=== PATIENT | female | born 1935 | race Caucasian/White ===

== ENCOUNTER 2020-05-20 10:55 | Outpatient (REF) | payer MEDICARE, SELFPAY ==
[2020-05-20 11:30] LABS: MANUAL DIFF FLAG NO
[2020-05-20 11:38] LABS: Basophils Absolute Auto 0.1 X10*3/uL (0.0-0.2); Basophils Percent Auto 1.4 % (0-2); Eosinophils Absolute Auto 0.6 X10*3/uL (0.0-0.4); Eosinophils Percent Auto 7.5 % (0-4); Hematocrit 41.5 % (37-47); Hemoglobin 13.5 g/dl (12.0-16.0); Imm Gran Abs Auto 0.01 X10*3/uL (0.00-0.03); Imm Gran Pct Auto 0.1 % (0.0-0.4); Mean Corpuscular HGB Conc 32.5 g/dl (31.0-35.0); Mean Corpuscular Hemoglobin 31.8 pg (27.0-33.0); Mean Corpuscular Volume 97.6 fL (80-98); Mean Platelet Volume 9.5 fL (9.4-12.3); Monocytes Absolute Auto 0.7 X10*3/uL (0.1-1.2); Monocytes Percent Auto 7.9 % (2-11); Neutrophils Absolute Auto 5.2 X10*3/uL (2.0-8.3); Neutrophils Percent Auto 60.1 % (45-73); Platelet Count 328 X10*3/uL (160-400); Red Blood Count 4.25 X10*6/uL (4.20-5.50); Red Cell Distribution Width 13.8 % (11.0-16.0); White Blood Count 8.6 X10*3/uL (4.8-10.8)
[2020-05-20 12:19] LABS: Alanine Aminotransferase 33 U/L (0-31); Albumin Level 4.1 g/dL (3.5-5.0); Alkaline Phosphatase 166 U/L (39-117); Anion Gap 15 (12-20); Aspartate Amino Transferase 35 U/L (5-31); Bilirubin Total 0.8 mg/dL (0.0-1.0); Blood Urea Nitrogen 15 mg/dL (9-16); Calcium 9.3 mg/dL (8.4-10.2); Carbon Dioxide 27 mmol/L (22-29); Chloride 106 mmol/L (96-108); Cholesterol 204 mg/dL; Estimated Glomerular Filt Rate > 60; Glucose Fasting 95 mg/dL (60-99); HDL Cholesterol 49 mg/dL; LDL Cholesterol Calculated 130 mg/dl; Potassium 4.9 mmol/l (3.3-5.1); Sodium 143 mmol/L (135-145); Total Protein 7.5 g/dL (6.5-8.0); Triglycerides 125 mg/dL
[2020-05-20 12:43] LABS: TSH reflex Free T4 1.57 mIU/mL (0.32-4.0)
== END 2020-05-20 10:56 | disposition home or self-care (01) ==
LOC: HO.LABR 10:55
PROVIDERS: PCP Internal Medicine; Visit Provider Internal Medicine
DX: I63.542 Cerebral infarction due to unspecified occlusion or stenosis of left cerebellar artery (principal); E66.3 Overweight; E78.00 Pure hypercholesterolemia, unspecified
CPT/HCPCS: 36415; 80053; 80061; 84443; 85025

== ENCOUNTER 2020-05-22 16:04 | Inpatient (IN) | payer MEDICARE, SELFPAY ==
[2020-05-22] VITALS (12 sets, daily range): BP systolic 131–240; BP diastolic 52–94; PULSE 68–93; RESP 16–19; TEMP 36.7; O2SAT 97–100; BMI 29.2
--- NOTE | 2020-05-22 | CT_ITS ---
EXAMINATION: CT HEAD WITHOUT CONTRAST CLINICAL INFORMATION: Altered mental status COMPARISON: 09/06/2016 TECHNIQUE: Contiguous axial imaging was performed from the skull base to vertex without intravenous administration of contrast. This CT examination was performed using dose optimization techniques as appropriate, variously including the following: *Automated exposure control *Adjustment of mA and/or kV according to patient size (this includes techniques or standardized protocols for targeted exams where dose is matched to indication/reason for exam; i.e. extremities or head) *Use of iterative reconstruction technique DLP: 602 mGy-cm FINDINGS: No intra-axial or extra-axial hemorrhage. No acute territorial infarct. 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 Ventricles and sulci appear normal. Preservation of sierra-white matter differentiation. No mass, mass effect, or midline shift. No fracture. The mastoid air cells and visualized paranasal sinuses are clear. IMPRESSION: No acute intracranial pathology.
--- NOTE | 2020-05-22 | ECG_ITS ---
Test Reason : HYPERTENTION Blood Pressure : / mmHG Vent. Rate : 082 BPM Atrial Rate : 082 BPM P-R Int : 124 ms QRS Dur : 088 ms QT Int : 426 ms P-R-T Axes : 066 043 073 degrees QTc Int : 497 ms Normal sinus rhythm Possible Left atrial enlargement Nonspecific ST abnormality Intra-ventricular conduction delay Abnormal ECG When compared with ECG of 06-SEP-2016 19:24, ST more depressed Inferior leads Lateral leads Referred By: Martín Braun Electronically Signed By:CECILE SMITH MD
--- NOTE | 2020-05-22 | XR_ITS ---
EXAMINATION: XR CHEST CLINICAL INFORMATION: Altered mental status COMPARISON: 09/06/2016 TECHNIQUE: Frontal view of the chest was obtained. FINDINGS: No focal consolidation, pulmonary edema, or pleural effusion. Stable cardiomediastinal silhouette. IMPRESSION: Unremarkable examination.
--- NOTE | 2020-05-22 16:23 | ED.AMS ---
HPI - Altered Mental Status General Chief Complaint: Altered Mental Status Stated Complaint: AMS,HYPERTENSION Time Seen by Provider: 05/22/20 16:20 Source: EMS Mode of arrival: EMS History of Present Illness HPI narrative: 84-year-old female brought in by EMS secondary to saying she had a change in mental status. As per EMS patient was fighting with and was not acting right. No known falls or fevers. No other history obtainable at this time secondary to patient's vague historian Onset (ago): day(s) ( 1 day) Related Data Home Medications Medication Instructions Recorded Confirmed atorvastatin 1 tab PO DAILY 05/22/20 05/22/20 metoprolol succinate 1 tab PO DAILY 05/22/20 05/22/20 Allergies Allergy/AdvReac Type Severity Reaction Status Date / Time egg [EGG] Allergy Unknown UNKNOWN Verified 05/22/20 16:39 eggs Allergy Unknown Unknown Uncoded 05/22/20 16:39 STREPTOMYCES ANTIBIOTICUS Allergy Unknown UNKNOWN Uncoded 05/22/20 16:39 DRVD Review of Systems Review of Systems: unable to obtain secondary to vague historian [facility] Past Medical History Medical History CVA (cerebral vascular accident) Hypertension Family History Family History Other Patient denies medical problems Social History Social History Household Members: Spouse Smoking Status: Never smoker Use of substances other than those prescribed or required for medical reasons: No Advance Directives: No Advance Directives Information Provided: Yes Physical Exam Vital Signs and I&O and Narrative: Vital Signs and I&O: Vital Signs Temp 98.1 F 05/22/20 16:19 Pulse 88 05/23/20 01:11 Resp 20 05/23/20 01:11 BP 184/86 H 05/23/20 01:11 Pulse Ox 97 05/23/20 01:11 Intake & Output 05/22/20 05/22/20 05/23/20 06:59 18:59 06:59 Weight 68 kg Body Mass Index 29.2 Const: Other: Appearance: Alert. Oriented to person. No acute distress. Eyes: Pupils equal, round and reactive to light. ENT: Pharynx normal. Neck: Normal inspection. Neck supple. CVS: Normal heart rate and rhythm. Pulses normal. positive S1-S2 Respiratory: No respiratory distress. Breath sounds normal. no wheezing no rounds Abdomen: Soft and nontender. Skin: Skin warm and dry. Normal skin color. Normal skin turgor. Extremities: No lower extremity edema. No lower extremity edema. poor hygiene bilateral feet intact neurovascular distally Neuro: Oriented X 1, to person. No motor deficit. No sensory deficit. Course Course Course Narrative: I spoke with who states that patient prior to today is in normal status. However today was stating that she needed to go the doctors tomorrow in which is not until 2 weeks. Patient did not know the date and was yelling and patient stating that she has to go to the doctors could her apartment is tomorrow in which is not. Patient continued to have the wrong date which is abnormal for her I spoke with hospital team Carla who accepts admission. Patient with improved blood pressure MDM - Altered Mental Status Differential Diagnosis Differential diagnosis: Likely altered mental status, delirium, dementia, hypoglycemia and subarachnoid hemorrhage Lab Data Attestation: I reviewed the patient's lab results. Result diagrams: 05/22/20 16:49 05/22/20 16:49 Labs: Lab Results 05/22/20 05/22/20 05/22/20 Range/Units 16:49 16:49 16:49 WBC 7.8 (4.8-10.8) X10*3/uL RBC 4.21 (4.20-5.50) X10*6/uL Hgb 13.4 (12.0-16.0) g/dl Hct 40.7 (37-47) % MCV 96.7 (80-98) fL MCH 31.8 (27.0-33.0) pg MCHC 32.9 (31.0-35.0) g/dl RDW 13.7 (11.0-16.0) % Plt Count 310 (160-400) X10*3/uL MPV 9.7 (9.4-12.3) fL Immature Gran % (Auto) 0.3 (0.0-0.4) % Neut % (Auto) 55.8 (45-73) % Lymph % (Auto) 28.8 (20-40) % [place] % (Auto) 8.2 (2-11) % Eos % (Auto) 5.6 H (0-4) % Baso % (Auto) 1.3 (0-2) % Lymph # (Auto) 2.3 (1.2-4.9) X10*3/uL [place] # (Auto) 0.6 (0.1-1.2) X10*3/uL Eos # (Auto) 0.4 (0.0-0.4) X10*3/uL Baso # (Auto) 0.1 (0.0-0.2) X10*3/uL Abs Immat Gran (auto) 0.02 (0.00-0.03) X10*3/uL Absolute Neuts (auto) 4.4 (2.0-8.3) X10*3/uL Absolute Nucleated RBC 0.000 (0.0-0.012) X10*3/uL Nucleated RBC % (auto) 0.0 (0.0-0.2) /100WBC Sodium 142 (135-145) mmol/L Potassium 3.5 D (3.3-5.1) mmol/l Chloride 106 (96-108) mmol/L Carbon Dioxide 24 (22-29) mmol/L Anion Gap 16 (12-20) BUN 20 H (9-16) mg/dL Creatinine 0.87 (0.5-1.4) mg/dL Estim Creat Clear Calc 42.1 Estimated GFR > 60 Random Glucose 88 (60-115) mg/dL Calcium 8.7 (8.4-10.2) mg/dL Total Bilirubin 0.7 (0.0-1.0) mg/dL Direct Bilirubin 0.3 (0.0-0.5) mg/dL AST 33 H (5-31) U/L ALT 30 (0-31) U/L Alkaline Phosphatase 153 H (39-117) U/L Troponin I High Sens 8.9 (<3.5-17.0) ng/L Total Protein 7.3 (6.5-8.0) g/dL Albumin 4.0 (3.5-5.0) g/dL Lipase 70 (8-78) U/L Urine Color Urine Appearance Urine pH (5.0-8.0) Ur Specific [place] (1.005-1.025) Urine Protein (NEG-TRACE) MG/DL Urine Glucose (UA) (NEG) MG/DL Urine Ketones (NEG) MG/DL Urine Blood (NEG) Urine Nitrite (NEG) Ur Leukocyte Esterase (NEG) Urine RBC (0) /HPF Urine WBC (0-4) /HPF Ur Squamous Epith Cells /LPF Urine Bacteria /LPF 05/22/20 Range/Units 17:03 WBC (4.8-10.8) X10*3/uL RBC (4.20-5.50) X10*6/uL Hgb (12.0-16.0) g/dl Hct (37-47) % MCV (80-98) fL MCH (27.0-33.0) pg MCHC (31.0-35.0) g/dl RDW (11.0-16.0) % Plt Count (160-400) X10*3/uL MPV (9.4-12.3) fL Immature Gran % (Auto) (0.0-0.4) % Neut % (Auto) (45-73) % Lymph % (Auto) (20-40) % [place] % (Auto) (2-11) % Eos % (Auto) (0-4) % Baso % (Auto) (0-2) % Lymph # (Auto) (1.2-4.9) X10*3/uL [place] # (Auto) (0.1-1.2) X10*3/uL Eos # (Auto) (0.0-0.4) X10*3/uL Baso # (Auto) (0.0-0.2) X10*3/uL Abs Immat Gran (auto) (0.00-0.03) X10*3/uL Absolute Neuts (auto) (2.0-8.3) X10*3/uL Absolute Nucleated RBC (0.0-0.012) X10*3/uL Nucleated RBC % (auto) (0.0-0.2) /100WBC Sodium (135-145) mmol/L Potassium (3.3-5.1) mmol/l Chloride (96-108) mmol/L Carbon Dioxide (22-29) mmol/L Anion Gap (12-20) BUN (9-16) mg/dL Creatinine (0.5-1.4) mg/dL Estim Creat Clear Calc Estimated GFR Random Glucose (60-115) mg/dL Calcium (8.4-10.2) mg/dL Total Bilirubin (0.0-1.0) mg/dL Direct Bilirubin (0.0-0.5) mg/dL AST (5-31) U/L ALT (0-31) U/L Alkaline Phosphatase (39-117) U/L Troponin I High Sens (<3.5-17.0) ng/L Total Protein (6.5-8.0) g/dL Albumin (3.5-5.0) g/dL Lipase (8-78) U/L Urine Color YELLOW Urine Appearance CLEAR Urine pH 5.5 (5.0-8.0) Ur Specific [place] 1.010 (1.005-1.025) Urine Protein NEG (NEG-TRACE) MG/DL Urine Glucose (UA) NEG (NEG) MG/DL Urine Ketones NEG (NEG) MG/DL Urine Blood 3+ H (NEG) Urine Nitrite NEG (NEG) Ur Leukocyte Esterase NEG (NEG) Urine RBC 10-14 H (0) /HPF Urine WBC 1-4 (0-4) /HPF Ur Squamous Epith Cells TRACE /LPF Urine Bacteria NONE /LPF ECG Data ECG #1: Attestation: I personally reviewed and interpreted this ECG as follows: Interpretation: rate of 82. Normal sinus rhythm. Normal axis. No ST-T changes normal p.r. intervals Critical Care Time Critical Care Time Critical Care Time: Yes Total Critical Care Time: 35 Attestation: I tested critical care time. patient with hypertensive urgency with a change of mental status requiring immediate IV medications to bring down her blood pressure. I also re-evaluated the patient multiple times in the emergency department or to make sure her blood pressure does not dramatically decreased. Discharge Plan Discharge Clinical Impression: Hypertensive urgency Altered mental status Qualifiers: Altered mental status type: unspecified Qualified Code(s): R41.82 - Altered mental status, unspecified Patient Disposition: Admitted As Inpatient Interventions: Admission Worksheet (ED) Last Done: 05/23/20 00:18 Discharge Date/Time: 05/23/20 00:18
[2020-05-22] MEDS: Metoprolol Tartrate 5 MG/5 ML VIAL IVPUSH ×2 (16:50→19:50)
[2020-05-22 16:53] LABS: MANUAL DIFF FLAG NO
[2020-05-22 16:55] LABS: Basophils Absolute Auto 0.1 X10*3/uL (0.0-0.2); Basophils Percent Auto 1.3 % (0-2); Eosinophils Absolute Auto 0.4 X10*3/uL (0.0-0.4); Eosinophils Percent Auto 5.6 % (0-4); Hematocrit 40.7 % (37-47); Hemoglobin 13.4 g/dl (12.0-16.0); Imm Gran Abs Auto 0.02 X10*3/uL (0.00-0.03); Imm Gran Pct Auto 0.3 % (0.0-0.4); Lymphocytes Absolute Auto 2.3 X10*3/uL (1.2-4.9); Lymphocytes Percent Auto 28.8 % (20-40); Mean Corpuscular HGB Conc 32.9 g/dl (31.0-35.0); Mean Corpuscular Hemoglobin 31.8 pg (27.0-33.0); Mean Corpuscular Volume 96.7 fL (80-98); Mean Platelet Volume 9.7 fL (9.4-12.3); Monocytes Absolute Auto 0.6 X10*3/uL (0.1-1.2); Monocytes Percent Auto 8.2 % (2-11); Neutrophils Absolute Auto 4.4 X10*3/uL (2.0-8.3); Neutrophils Percent Auto 55.8 % (45-73); Platelet Count 310 X10*3/uL (160-400); Red Blood Count 4.21 X10*6/uL (4.20-5.50); Red Cell Distribution Width 13.7 % (11.0-16.0); White Blood Count 7.8 X10*3/uL (4.8-10.8)
[2020-05-22 17:24] LABS: Alanine Aminotransferase 30 U/L (0-31); Alkaline Phosphatase 153 U/L (39-117); Anion Gap 16 (12-20); Aspartate Amino Transferase 33 U/L (5-31); Bilirubin Direct 0.3 mg/dL (0.0-0.5); Bilirubin Total 0.7 mg/dL (0.0-1.0); Blood Urea Nitrogen 20 mg/dL (9-16); Calcium 8.7 mg/dL (8.4-10.2); Carbon Dioxide 24 mmol/L (22-29); Chloride 106 mmol/L (96-108); Creatinine Clr Calc Pharmacy 42.1; Estimated Glomerular Filt Rate > 60; Glucose Random 88 mg/dL (60-115); Lipase 70 U/L (8-78); Potassium 3.5 mmol/l (3.3-5.1); Sodium 142 mmol/L (135-145); Total Protein 7.3 g/dL (6.5-8.0)
[2020-05-22 17:26] LABS: Troponin-I High Sensitivity 8.9 ng/L (<3.5-17.0)
[2020-05-22 17:32] LABS: Glucose Urine UA NEG (NEG); Leukocyte Esterase Urine NEG (NEG); Nitrite Urine NEG (NEG); PH 5.5 (5.0-8.0); Urine Blood 3+ (NEG); Urine Ketones NEG (NEG); Urine Protein NEG (NEG-TRACE)
[2020-05-22 17:37] LABS: Appearance Urine CLEAR; Color Urine YELLOW
[2020-05-22 18:09] LABS: Squamous Epithelial Cell Urine TRACE /LPF
[2020-05-22] MEDS: hydrALAZINE HCl 20 MG/ML VIAL 10 MG IVPUSH ×2 (18:23→22:36)
--- NOTE | 2020-05-22 19:44 | PC.NURSE ---
SITTING UP IN BED. SINUS ON MONITOR. VERY CONCERNED ABOUT THE COMMODE BEING REMOVED FROM THE BEDSIDE. OFFERS NO OTHER COMPLAINTS AT THIS TIME.
--- NOTE | 2020-05-22 20:17 | P.HPIM_ITS ---
History of Present Illness Date of Service: 05/22/20 Chief Complaint: Elevated BP / AMS 84 y/o female with no pertinent PMHX who presented from home due to AMS. Patient at present is AAOx3, reports that came to the ED due to elevated BP . Jayden reported earlier that patient was agitated and not herself stating that had an appointment with her PCP tomorrow but it was actually in 2 weeks from now for what her called EMS. On presentation patient is found to have baseline mental status but with elevated BP of 236/94 mmHg. Patient was given one dose of hydralazine IV and Lopressor with minimal improvement on BP for what medicine was called for admission . Patient was seen and evaluated at the bedside, BP now of 185/74 mmHg and HR of 89. One dose of lopressor to be given now stat. Patient denies any chest pain, SOB, nausea, vomiting or fever. EKG was reviewed which was NSR, no evidence of any acute ST T wave changes. CXR normal. CT head negative for any acute intracranial pathology. PMHX: no pertinent PMHx PSx: none Toxic habits: No hx of alcohol abuse, smoking or IVDA Review of Systems Review of Systems: Yes all other systems are reviewed and are negative PMFSH Medical History CVA (cerebral vascular accident) Hypertension Functional capacity: independent ambulation Patient : No Family History Other Patient denies medical problems Family history: reviewed and not pertinent Social History Household Members: Spouse Smoking Status: Never smoker Use of substances other than those prescribed or required for medical reasons: No Advance Directives: No Advance Directives Information Provided: Yes Meds Allergies Allergy/AdvReac Type Severity Reaction Status Date / Time egg [EGG] Allergy Unknown UNKNOWN Verified 05/22/20 16:39 eggs Allergy Unknown Unknown Uncoded 05/22/20 16:39 STREPTOMYCES ANTIBIOTICUS Allergy Unknown UNKNOWN Uncoded 05/22/20 16:39 DRVD Physical Exam Vital Signs and Narrative: Vital Signs: Last Vital Signs Temp 98.1 F 05/22/20 16:19 Pulse 89 05/22/20 19:41 Resp 16 05/22/20 19:41 BP 185/74 H 05/22/20 19:41 Pulse Ox 99 05/22/20 19:41 Body Mass Index 29.2 Const: General: cooperative, healthy appearing and comfortable Orientation/consciousness: patient oriented x3 HENMT: Head: Yes normal to inspection Ears: hearing grossly normal bilaterally Eyes: General: appearance normal, both eyes and all related structures Neck: Yes normal visual inspection Chest: Chest palpation & inspection: normal inspection of the chest Resp: Effort & Inspection: normal respiratory effort Cardio: Jugular venous distension: no JVD Rhythm: regular rhythm Heart sounds: S1 normal heart sound present and S2 normal heart sound present GI: Inspection: Yes normal to inspection Skin: General skin exam: no rashes or lesions noted Neuro: General: patient oriented x3 Cognition (Neuro): normal cognition Motor exam (neuro): 5/5 motor strength present throughout Psych: Appearance: grossly normal Results Labs Labs: Laboratory Tests 05/22/20 05/22/20 05/22/20 16:49 16:49 16:49 WBC 7.8 RBC 4.21 Hgb 13.4 Hct 40.7 MCV 96.7 MCH 31.8 MCHC 32.9 RDW 13.7 Plt Count 310 MPV 9.7 Immature Gran % (Auto) 0.3 Neut % (Auto) 55.8 Lymph % (Auto) 28.8 [place] % (Auto) 8.2 Eos % (Auto) 5.6 H Baso % (Auto) 1.3 Lymph # (Auto) 2.3 [place] # (Auto) 0.6 Eos # (Auto) 0.4 Baso # (Auto) 0.1 Abs Immat Gran (auto) 0.02 Absolute Neuts (auto) 4.4 Absolute Nucleated RBC 0.000 Nucleated RBC % (auto) 0.0 Sodium 142 Potassium 3.5 D Chloride 106 Carbon Dioxide 24 Anion Gap 16 BUN 20 H Creatinine 0.87 Estim Creat Clear Calc 42.1 Estimated GFR > 60 Random Glucose 88 Calcium 8.7 Total Bilirubin 0.7 Direct Bilirubin 0.3 AST 33 H ALT 30 Alkaline Phosphatase 153 H Troponin I High Sens 8.9 Total Protein 7.3 Albumin 4.0 Lipase 70 Urine Color Urine Appearance Urine pH Ur Specific [place] Urine Protein Urine Glucose (UA) Urine Ketones Urine Blood Urine Nitrite Ur Leukocyte Esterase Urine RBC Urine WBC Ur Squamous Epith Cells Urine Bacteria 05/22/20 17:03 WBC RBC Hgb Hct MCV MCH MCHC RDW Plt Count MPV Immature Gran % (Auto) Neut % (Auto) Lymph % (Auto) [place] % (Auto) Eos % (Auto) Baso % (Auto) Lymph # (Auto) [place] # (Auto) Eos # (Auto) Baso # (Auto) Abs Immat Gran (auto) Absolute Neuts (auto) Absolute Nucleated RBC Nucleated RBC % (auto) Sodium Potassium Chloride Carbon Dioxide Anion Gap BUN Creatinine Estim Creat Clear Calc Estimated GFR Random Glucose Calcium Total Bilirubin Direct Bilirubin AST ALT Alkaline Phosphatase Troponin I High Sens Total Protein Albumin Lipase Urine Color YELLOW Urine Appearance CLEAR Urine pH 5.5 Ur Specific [place] 1.010 Urine Protein NEG Urine Glucose (UA) NEG Urine Ketones NEG Urine Blood 3+ H Urine Nitrite NEG Ur Leukocyte Esterase NEG Urine RBC 10-14 H Urine WBC 1-4 Ur Squamous Epith Cells TRACE Urine Bacteria NONE Assessment and Plan (1) Hypertensive encephalopathy: Status: Acute (2) Hypertensive urgency: Status: Acute BP now of 185/74 mmHg and hR of 89 One dose of Lopressor to be given STAT. PRN BP lowering medication to be considered as patient's response to a goal of 160/90 mmHg in the next 2-6 hrs and then cautiosly to normal over the next 24-48 hrs [facility] Follow up 2D Echo No documented home medications at present Cardiology consult in the am
--- NOTE | 2020-05-22 22:13 | PC.NURSE ---
NOTIFIED DR TERRIE BUCK OF .
--- NOTE | 2020-05-22 22:53 | PC.NURSE ---
SPOKE WITH DR FALCON. WILL ORDER NITRO FOR PATIENT PRIOR TO GOING UPSTAIRS
[2020-05-23] VITALS (13 sets, daily range): BP systolic 148–189; BP diastolic 70–86; PULSE 80–118; RESP 18–20; TEMP 35.8–37.1; O2SAT 95–98
[2020-05-23] MEDS: Heparin Sodium,Porcine 5,000 UNIT/ML VIAL 5000 UNIT SUBCUT ×3 (00:46→17:47)
[2020-05-23] MEDS: 0.9 % Sodium Chloride Flush 3 ML SYRINGE 2 ML IVFLUSH ×3 (00:46→17:48)
[2020-05-23] MEDS: Acetaminophen 325 MG TABLET 650 MG PO (01:13)
[2020-05-23] MEDS: hydrALAZINE HCl 20 MG/ML VIAL 5 MG IVPUSH (02:35)
[2020-05-23 06:47] LABS: MANUAL DIFF FLAG NO
[2020-05-23 06:52] LABS: Basophils Absolute Auto 0.1 X10*3/uL (0.0-0.2); Basophils Percent Auto 0.6 % (0-2); Eosinophils Percent Auto 0.1 % (0-4); Hematocrit 38.8 % (37-47); Hemoglobin 12.7 g/dl (12.0-16.0); Imm Gran Abs Auto 0.04 X10*3/uL (0.00-0.03); Imm Gran Pct Auto 0.4 % (0.0-0.4); Lymphocytes Absolute Auto 0.9 X10*3/uL (1.2-4.9); Mean Corpuscular HGB Conc 32.7 g/dl (31.0-35.0); Mean Corpuscular Hemoglobin 31.4 pg (27.0-33.0); Mean Corpuscular Volume 95.8 fL (80-98); Mean Platelet Volume 10.1 fL (9.4-12.3); Monocytes Absolute Auto 0.2 X10*3/uL (0.1-1.2); Monocytes Percent Auto 2.3 % (2-11); Neutrophils Absolute Auto 8.8 X10*3/uL (2.0-8.3); Neutrophils Percent Auto 87.6 % (45-73); Platelet Count 316 X10*3/uL (160-400); Red Blood Count 4.05 X10*6/uL (4.20-5.50); Red Cell Distribution Width 13.8 % (11.0-16.0); White Blood Count 10.1 X10*3/uL (4.8-10.8)
[2020-05-23 07:47] LABS: Anion Gap 17 (12-20); Blood Urea Nitrogen 15 mg/dL (9-16); Calcium 8.6 mg/dL (8.4-10.2); Carbon Dioxide 21 mmol/L (22-29); Chloride 107 mmol/L (96-108); Creatinine Clr Calc Pharmacy 52.4; Estimated Glomerular Filt Rate > 60; Glucose Random 143 mg/dL (60-115); Potassium 3.5 mmol/l (3.3-5.1); Sodium 141 mmol/L (135-145)
[2020-05-23] MEDS: amLODIPine Besylate 5 MG TABLET PO (08:39)
[2020-05-23] MEDS: Atorvastatin Calcium 40 MG TABLET PO (08:39)
[2020-05-23] MEDS: Metoprolol Succinate ER 25 MG TAB.ER.24H PO (08:39)
--- NOTE | 2020-05-23 09:36 | PM.CNCAR ---
History of Present Illness History of Present Illness Date of Consult: May 23, 2020 Requesting physician: Nova Britt Chief complaint: AMS,HYPERTENSION Narrative: This is a cardiology consultation regarding uncontrolled hypertension. Patient does not have any known cardiac issues according to her. No history of any coronary disease myocardial infarction or cardiomyopathy or in fact any other cardiac concerns at all. She states that she has had hypertension for many years. It appears that she take some beta-blockers at home for hypertension. Apparently there was some concern for altered mental status and agitation and the patient not being herself. Then EMS was called and the blood pressure was very high at 230 6/94 mm Hg. She was given some IV hydralazine and Lopressor with minimal improvement of blood pressure and then admitted. Patient herself denies any cardiac complaints like angina or shortness of breath or palpitations or syncopal episodes. Review of Systems Review of Systems: Cardiac -negative for angina, shortness of breath, palpitations, leg swelling or syncope. Neurological- positive for altered mental status but now seems improved. Remainder of the 10 system review is negative. [facility] Past Medical History Medical History CVA (cerebral vascular accident) Hypertension Functional capacity: independent ambulation Family History Family History Other Patient denies medical problems Family history: reviewed and not pertinent Social History Social History Household Members: Spouse Housing: House Do you presently have visiting nurse or other home services: Yes (pt states vna) Smoking Status: Never smoker Use of substances other than those prescribed or required for medical reasons: No Currently Displaying Signs/Symptoms of Drug Intoxication Withdrawal: No Have you been hit, kicked, punched, or otherwise hurt by someone within the past year? If so, by whom?: No Do you feel safe in your current relationship?: Yes Is there a partner from a previous relationship who is making you feel unsafe now?: No Are you made to feel afraid or neglected: No Advance Directives: No Advance Directives Information Provided: Yes Do you have thoughts of harming others: None Do you have a plan to hurt others: No Plan Recently lost weight without trying: Unsure Meds Allergies Allergy/AdvReac Type Severity Reaction Status Date / Time egg [EGG] Allergy Unknown UNKNOWN Verified 05/22/20 16:39 eggs Allergy Unknown Unknown Uncoded 05/22/20 16:39 STREPTOMYCES ANTIBIOTICUS Allergy Unknown UNKNOWN Uncoded 05/22/20 16:39 DRVD Home Medications Medication Instructions Recorded Confirmed Type atorvastatin 1 tab PO DAILY 05/22/20 05/22/20 History metoprolol succinate 1 tab PO DAILY 05/22/20 05/22/20 History Physical Exam Vital Signs and I&O and Narrative: Vital Signs and I&O: Vital Signs Temp 98.8 F 05/23/20 08:50 Pulse 89 05/23/20 08:50 Resp 20 05/23/20 08:50 BP 148/70 H 05/23/20 08:39 Pulse Ox 96 05/23/20 08:50 Comfortable, no distress No pallor, icterus or cyanosis HEENT -unremarkable JVD- normal Cardiac- normal heart sounds, no murmurs, gallops or rubs, normal PMI Respiratory-normal breath sounds bilaterally, no crackles, no wheeze Abdomen- soft, nontender Neuro- alert and oriented Lower extremities- no significant edema, warm well perfused Results Labs and Meds Result diagrams: 05/23/20 05:54 05/23/20 05:54 Lab results: Laboratory Results - last 24 hr 05/22/20 05/22/20 05/22/20 16:49 16:49 16:49 WBC 7.8 RBC 4.21 Hgb 13.4 Hct 40.7 MCV 96.7 MCH 31.8 MCHC 32.9 RDW 13.7 Plt Count 310 MPV 9.7 Immature Gran % (Auto) 0.3 Neut % (Auto) 55.8 Lymph % (Auto) 28.8 [place] % (Auto) 8.2 Eos % (Auto) 5.6 H Baso % (Auto) 1.3 Lymph # (Auto) 2.3 [place] # (Auto) 0.6 Eos # (Auto) 0.4 Baso # (Auto) 0.1 Abs Immat Gran (auto) 0.02 Absolute Neuts (auto) 4.4 Absolute Nucleated RBC 0.000 Nucleated RBC % (auto) 0.0 Sodium 142 Potassium 3.5 D Chloride 106 Carbon Dioxide 24 Anion Gap 16 BUN 20 H Creatinine 0.87 Estim Creat Clear Calc 42.1 Estimated GFR > 60 Random Glucose 88 Calcium 8.7 Total Bilirubin 0.7 Direct Bilirubin 0.3 AST 33 H ALT 30 Alkaline Phosphatase 153 H Troponin I High Sens 8.9 Total Protein 7.3 Albumin 4.0 Lipase 70 Urine Color Urine Appearance Urine pH Ur Specific [place] Urine Protein Urine Glucose (UA) Urine Ketones Urine Blood Urine Nitrite Ur Leukocyte Esterase Urine RBC Urine WBC Ur Squamous Epith Cells Urine Bacteria 05/22/20 05/23/20 05/23/20 17:03 05:54 05:54 WBC 10.1 RBC 4.05 L Hgb 12.7 Hct 38.8 MCV 95.8 MCH 31.4 MCHC 32.7 RDW 13.8 Plt Count 316 MPV 10.1 Immature Gran % (Auto) 0.4 Neut % (Auto) 87.6 H Lymph % (Auto) 9.0 L [place] % (Auto) 2.3 Eos % (Auto) 0.1 Baso % (Auto) 0.6 Lymph # (Auto) 0.9 L [place] # (Auto) 0.2 Eos # (Auto) 0.0 Baso # (Auto) 0.1 Abs Immat Gran (auto) 0.04 H Absolute Neuts (auto) 8.8 H Absolute Nucleated RBC 0.000 Nucleated RBC % (auto) 0.0 Sodium 141 Potassium 3.5 Chloride 107 Carbon Dioxide 21 L Anion Gap 17 BUN 15 Creatinine 0.70 Estim Creat Clear Calc 52.4 Estimated GFR > 60 Random Glucose 143 H D Calcium 8.6 Total Bilirubin Direct Bilirubin AST ALT Alkaline Phosphatase Troponin I High Sens Total Protein Albumin Lipase Urine Color YELLOW Urine Appearance CLEAR Urine pH 5.5 Ur Specific [place] 1.010 Urine Protein NEG Urine Glucose (UA) NEG Urine Ketones NEG Urine Blood 3+ H Urine Nitrite NEG Ur Leukocyte Esterase NEG Urine RBC 10-14 H Urine WBC 1-4 Ur Squamous Epith Cells TRACE Urine Bacteria NONE EKG Interpretation Telemetry: sinus rhythm EKG Comments: EKG reviewed. Sinus rhythm at 82/Min. Nonspecific ST-T changes. QTC appears prolonged at 497 milliseconds. Assessment and Plan (1) Hypertensive encephalopathy: Status: Acute (2) Hypertensive urgency: Status: Acute (3) Altered mental status: Qualifiers: Altered mental status type: unspecified Qualified Code(s): R41.82 - Altered mental status, unspecified Status: Acute (4) Abnormal EKG: Problem details: QTc is prolonged. Avoid all QT prolonging drugs. Correct lytes. Check Mag. Status: Acute Symptoms of altered mental status could very well be from uncontrolled blood pressure. Blood pressure seems much improved since the time of admission. She has been started on amlodipine that seems to be reasonable choice. We can go up on the dose accordingly. Otherwise based on the troponins, there is no evidence of any acute coronary syndrome. She will require an echocardiogram at some point but that can be done as an outpatient.
--- NOTE | 2020-05-23 11:35 | MHC.CM.PN ---
met with pt who is indepdent cm intervention is not indicated pt will need a cab home
[2020-05-23] MEDS: Magnesium Sulfate/H2O 2 GM/50 ML PIGGYBACK IV (11:54)
--- NOTE | 2020-05-23 12:58 | HO.PM.IMPN ---
Subjective Subjective Date of Service: 05/23/20 Interval History: the patient was seen and evaluated this morning Laying in bed, feels comfortable Denies any fever, chills or shortness of breath complaining of some headache after the fall No reported other overnight events. Review of Systems Review of Systems: Yes all other systems are reviewed and are negative Constitutional Constitutional: Reports no additional constitutional complaints Physical Exam Vital Signs and I&O and Narrative: Vital Signs and I&O: Vital Signs Temp 97.6 F 05/23/20 12:27 Pulse 118 H 05/23/20 12:27 Resp 18 05/23/20 12:27 BP 168/80 H 05/23/20 12:27 Pulse Ox 95 05/23/20 12:27 Intake & Output 05/22/20 05/23/20 05/23/20 18:59 06:59 18:59 Intake Total 170.25 / 170.25 120 / 120 Output Total 200 / 200 Balance 170.25 / 170.25 -80 / -80 Urine Output (Aver age ml/kg/hr) 0.25 Weight 68 kg Intake: Intake, Oral Jake unt 120 / 120 120 / 120 Intake, IV Amoun t 50.25 / 50.25 Promethazine H CL 6.25 mg In 0.9 50.25 / 50.25 % Sodium Chlor allyson 50 ml @ 201 mls/hr IV ONCE ONE Rx#: [id number] Output: Output, Urine Am ount 200 / 200 Other: Breakfast % Eate n 25% Urine Bedside Commode Stool Bedside Commode Stool Color Brown Stool Consistenc y Semi Formed Body Mass Index 29.2 Const: General: cooperative and comfortable Orientation/consciousness: oriented to person and oriented to place Neck: Neck: Yes normal visual inspection and Yes full ROM Resp: Effort & Inspection: normal respiratory effort Auscultation: clear to auscultation bilaterally Cardio: Jugular venous distension: no JVD Heart sounds: S1 normal heart sound present and S2 normal heart sound present GI: Inspection: Yes normal to inspection Percussion: Yes normal to percussion Neuro: General: oriented to person and oriented to place Objective Data Current Medications Generic Name Dose Route Start Last Admin Trade Name Freq PRN Reason Stop Dose Admin Amlodipine Besylate 5 mg 05/23/20 09:00 05/23/20 08:39 Amlodipine Besylate 5 Mg Tablet PO 5 mg DAILY MARIANA Administration Protocol Atorvastatin Calcium 40 mg 05/23/20 09:00 05/23/20 08:39 Atorvastatin Calcium 40 Mg Tablet PO 40 mg DAILY MARIANA Administration Heparin Sodium (Porcine) 5,000 unit 05/23/20 01:00 05/23/20 08:39 Heparin Sodium,Porcine 5,000 Unit/Ml Vial SUBCUT 5,000 unit Q8H MARIANA Administration Metoprolol Succinate 25 mg 05/23/20 09:00 05/23/20 08:39 Metoprolol Succinate Er 25 Mg Tab.Er.24h PO 25 mg DAILY MARIANA Administration Protocol Potassium Chloride 40 meq 05/23/20 11:15 05/23/20 11:54 Potassium Chloride 20 Meq Packet PO 05/24/20 01:00 40 meq BID MARIANA Administration Sodium Chloride 2 ml 05/23/20 00:21 05/23/20 08:40 0.9 % Sodium Chloride Flush 3 Ml Syringe IVFLUSH 2 ml QSHIFT MARIANA Administration Labs CBC & Chem 7: 05/23/20 05:54 05/23/20 05:54 Labs: Laboratory Results - last 24 hr 05/22/20 05/22/20 05/22/20 16:49 16:49 16:49 MCV 96.7 MCH 31.8 MCHC 32.9 RDW 13.7 Plt Count 310 MPV 9.7 Immature Gran % (Auto) 0.3 Neut % (Auto) 55.8 Lymph % (Auto) 28.8 [place] % (Auto) 8.2 Eos % (Auto) 5.6 H Baso % (Auto) 1.3 Lymph # (Auto) 2.3 [place] # (Auto) 0.6 Eos # (Auto) 0.4 Baso # (Auto) 0.1 Abs Immat Gran (auto) 0.02 Absolute Neuts (auto) 4.4 Absolute Nucleated RBC 0.000 Nucleated RBC % (auto) 0.0 Anion Gap 16 Estim Creat Clear Calc 42.1 Estimated GFR > 60 Random Glucose 88 Calcium 8.7 Total Bilirubin 0.7 Direct Bilirubin 0.3 AST 33 H ALT 30 Alkaline Phosphatase 153 H Troponin I High Sens 8.9 Total Protein 7.3 Albumin 4.0 Lipase 70 Urine Color Urine Appearance Urine pH Ur Specific [place] Urine Protein Urine Glucose (UA) Urine Ketones Urine Blood Urine Nitrite Ur Leukocyte Esterase Urine RBC Urine WBC Ur Squamous Epith Cells Urine Bacteria 05/22/20 05/23/20 05/23/20 17:03 05:54 05:54 MCV 95.8 MCH 31.4 MCHC 32.7 RDW 13.8 Plt Count 316 MPV 10.1 Immature Gran % (Auto) 0.4 Neut % (Auto) 87.6 H Lymph % (Auto) 9.0 L [place] % (Auto) 2.3 Eos % (Auto) 0.1 Baso % (Auto) 0.6 Lymph # (Auto) 0.9 L [place] # (Auto) 0.2 Eos # (Auto) 0.0 Baso # (Auto) 0.1 Abs Immat Gran (auto) 0.04 H Absolute Neuts (auto) 8.8 H Absolute Nucleated RBC 0.000 Nucleated RBC % (auto) 0.0 Anion Gap 17 Estim Creat Clear Calc 52.4 Estimated GFR > 60 Random Glucose 143 H D Calcium 8.6 Total Bilirubin Direct Bilirubin AST ALT Alkaline Phosphatase Troponin I High Sens Total Protein Albumin Lipase Urine Color YELLOW Urine Appearance CLEAR Urine pH 5.5 Ur Specific [place] 1.010 Urine Protein NEG Urine Glucose (UA) NEG Urine Ketones NEG Urine Blood 3+ H Urine Nitrite NEG Ur Leukocyte Esterase NEG Urine RBC 10-14 H Urine WBC 1-4 Ur Squamous Epith Cells TRACE Urine Bacteria NONE Assessment and Plan (1) Hypertensive encephalopathy: Status: Acute (2) Hypertensive urgency: Status: Acute (3) Altered mental status: Status: Acute Assessment and Plan: An 84 years old lady with PMH of hypertension who presents to the hospital with altered mentation and confusion. Found to have significantly elevated blood pressure. Acute Hypertensive encephalopathy mentation improved back to baseline Likelyfrom high blood pressure To bring blood pressure slowly down Hypertensive urgency blood pressure better controlled now Required multiple doses of Lopressor and hydralazine Started on amlodipine 5 mg daily continue metoprolol 25 mg daily To start lisinopril goal of 160/90 and bring it down to normal within the next 24 hours surveillance monitor pending cardiology evaluation QTC prolongation QTC around 500 To give potassium and magnesium supplement DVT PPX Heparin
--- NOTE | 2020-05-23 19:10 | PC.NURSE ---
This RN spoke to Mindy Pascual (pts behavioral jim case loader operator through [facility]- [phone]) Per Mindy, patient has progressively gotten worse, to the point where her is almost not able to manager beverage her at home. ie: very confrontational, screaming, difficult to deal with, paranoid. pts has thought about trying to get her help/evaluated by psych however patient does not allow anyone into the house, including mindy? per pts . Mindy and patients Yunior would like patient to have a psych eval for competency/eval while she is here inpatient. dr ferguson made aware, plan for him to evaluate patients mental status in the am and decide at that time. case management also made aware of phone call with mindy. [facility] also [facility] #[id number]. case management notified.
[2020-05-24] VITALS (9 sets, daily range): BP systolic 149–188; BP diastolic 64–86; PULSE 80–101; RESP 18–20; TEMP 36.2–36.6; O2SAT 93–98
--- NOTE | 2020-05-24 | ECG_ITS ---
Test Reason : QT Blood Pressure : / mmHG Vent. Rate : 087 BPM Atrial Rate : 087 BPM P-R Int : 126 ms QRS Dur : 088 ms QT Int : 408 ms P-R-T Axes : 065 044 075 degrees QTc Int : 490 ms Normal sinus rhythm Possible Left atrial enlargement Nonspecific ST abnormality Prolonged QT Abnormal ECG When compared with ECG of 22-MAY-2020 16:25, No significant change was found Referred By: Nova Britt Electronically Signed By:CECILE SMITH MD
[2020-05-24] MEDS: 0.9 % Sodium Chloride Flush 3 ML SYRINGE 2 ML IVFLUSH ×2 (01:25→07:49)
[2020-05-24] MEDS: Heparin Sodium,Porcine 5,000 UNIT/ML VIAL 5000 UNIT SUBCUT ×2 (01:25→09:08)
--- NOTE | 2020-05-24 02:03 | PC.NURSE ---
pt downgraded to meds[place] from [facility]. Tele pack removed from patient at this time per dr deleon
[2020-05-24 06:41] LABS: MANUAL DIFF FLAG NO
[2020-05-24 07:00] LABS: Basophils Absolute Auto 0.1 X10*3/uL (0.0-0.2); Basophils Percent Auto 1.1 % (0-2); Eosinophils Absolute Auto 0.3 X10*3/uL (0.0-0.4); Eosinophils Percent Auto 2.9 % (0-4); Hematocrit 39.1 % (37-47); Hemoglobin 12.7 g/dl (12.0-16.0); Imm Gran Abs Auto 0.02 X10*3/uL (0.00-0.03); Imm Gran Pct Auto 0.2 % (0.0-0.4); Lymphocytes Absolute Auto 2.3 X10*3/uL (1.2-4.9); Lymphocytes Percent Auto 24.4 % (20-40); Mean Corpuscular HGB Conc 32.5 g/dl (31.0-35.0); Mean Corpuscular Hemoglobin 31.6 pg (27.0-33.0); Mean Corpuscular Volume 97.3 fL (80-98); Mean Platelet Volume 10.1 fL (9.4-12.3); Monocytes Absolute Auto 0.8 X10*3/uL (0.1-1.2); Monocytes Percent Auto 7.9 % (2-11); Neutrophils Percent Auto 63.5 % (45-73); Platelet Count 326 X10*3/uL (160-400); Red Blood Count 4.02 X10*6/uL (4.20-5.50); Red Cell Distribution Width 13.7 % (11.0-16.0); White Blood Count 9.4 X10*3/uL (4.8-10.8)
[2020-05-24 07:29] LABS: Anion Gap 13 (12-20); Blood Urea Nitrogen 16 mg/dL (9-16); Calcium 8.5 mg/dL (8.4-10.2); Carbon Dioxide 25 mmol/L (22-29); Chloride 105 mmol/L (96-108); Creatinine Clr Calc Pharmacy 51.6; Estimated Glomerular Filt Rate > 60; Glucose Random 101 mg/dL (60-115); Potassium 3.5 mmol/l (3.3-5.1); Sodium 139 mmol/L (135-145)
[2020-05-24] MEDS: amLODIPine Besylate 5 MG TABLET 10 MG PO (09:07)
[2020-05-24] MEDS: Atorvastatin Calcium 40 MG TABLET PO (09:07)
[2020-05-24] MEDS: Metoprolol Succinate ER 25 MG TAB.ER.24H PO (09:08)
--- NOTE | 2020-05-24 10:31 | PM.PNCARD ---
Subjective Subjective Interval history: Seen regarding follow-up of hypertension. She states that she feels okay. No cardiac complaints. She would like to go home today. Review of Systems Review of Systems Cardiac-negative for angina, shortness of breath, palpitations, dizzy spells or syncopal episodes. Remainder of the 10 system review is negative. Physical Exam Vital Signs and I&O: Vital Signs Temp Pulse Resp BP Pulse Ox 05/24/20 09:08 82 172/86 H 05/24/20 09:07 80 172/86 H 05/24/20 07:50 97.3 F 94 18 149/64 H 97 05/24/20 04:42 93 158/66 H 05/24/20 04:39 93 158/66 H 05/24/20 03:44 97.9 F 101 H 20 188/80 H 98 05/23/20 23:42 96.5 F L 90 18 97 05/23/20 19:17 96.8 F 86 20 160/76 H 97 05/23/20 16:00 98.1 F 91 18 148/82 H 98 05/23/20 12:27 97.6 F 118 H 18 168/80 H 95 Comfortable, no distress No pallor, icterus or cyanosis HEENT -unremarkable JVD- normal Cardiac- normal heart sounds, no murmurs, gallops or rubs, normal PMI Respiratory-normal breath sounds bilaterally, no crackles, no wheeze Abdomen- soft, nontender Neuro- alert and oriented Lower extremities- no significant edema, warm well perfused Progress Note: A&P Assessment and plan (1) Hypertensive encephalopathy: Status: Acute (2) Hypertensive urgency: Status: Acute (3) Altered mental status: Status: Acute (4) Abnormal EKG: Problem details: QTc is prolonged. Avoid all QT prolonging drugs. Correct lytes. Repeat EKG with QTC of 490 milliseconds but slightly improved from the previou. Status: Acute Assessment and Plan: Symptoms of altered mental status could very well be from uncontrolled blood pressure. Blood pressure seems improved since the time of admission. She has been started on amlodipine that seems to be reasonable choice. Otherwise based on the troponins, there is no evidence of any acute coronary syndrome. She will need further medication up titration like BREEZY inhibitors but that can be done as an outpatient as she is insisting on going home. We can see in the office if she is willing but I am not sure if she will comply. Fall Risk Details Current Medications: Current Medications Generic Name Dose Route Start Last Admin Trade Name Brielle PRN Reason Stop Dose Admin Amlodipine Besylate 10 mg 05/24/20 09:00 05/24/20 09:07 Amlodipine Besylate 5 Mg Tablet PO 10 mg DAILY MARIANA Administration Protocol Atorvastatin Calcium 40 mg 05/23/20 09:00 05/24/20 09:07 Atorvastatin Calcium 40 Mg Tablet PO 40 mg DAILY MARIANA Administration Heparin Sodium (Porcine) 5,000 unit 05/23/20 01:00 05/24/20 09:08 Heparin Sodium,Porcine 5,000 Unit/Ml Vial SUBCUT 5,000 unit Q8H MARIANA Administration Metoprolol Succinate 25 mg 05/23/20 09:00 05/24/20 09:08 Metoprolol Succinate Er 25 Mg Tab.Er.24h PO 25 mg DAILY MARIANA Administration Protocol Sodium Chloride 2 ml 05/23/20 00:21 05/24/20 07:49 0.9 % Sodium Chloride Flush 3 Ml Syringe IVFLUSH 2 ml QSHIFT MARIANA Administration Time Spent With Patient Time: Total time spent is greater than 50% in coordination of care (as documented) at patient's floor/unit and/or counseling patient: Time with patient: 15 - 24 minutes
--- NOTE | 2020-05-24 12:52 | MHC.CM.PN ---
[facility] CM CONTACTED DR PAIZ'S OFFICE TO SCHEDULE A FOLLOW UP APPT. CM INFORMED THEY DO NOT HAVE ANY AVAILABILITY FOR THE MONTH OF MAY. PLANT OPERATIONS WORKER INDICATED SHE WOULD GIVE THE PTS INFO TO THE NURSE AND HAVE HER SCHEDULED SOMETHING SOONER. THE PHONE NUMBER FOR CM AND PT PROVIDED FOR RETURN CALL WHEN APT SCHEDULED
--- NOTE | 2020-05-24 12:54 | MHC.CM.PN ---
DISCHRGE PLANNING CM SPOKE TO PTS CLAUDIA ([phone]) WHO REPORTS HE NEEDS THE PT SENT HOME SOON POSSIBLE BECAUSE HE WILL HAVE TO TAKE THE BUS TO GO TO THE PHARMACY AND GET HER MEDS, PAPERBACK MACHINE OPERATOR GROCERY AND GO TO THE BANK. HE REPORTS IT WILL TAKE A LONG TIME AND IF HE DOES NOT LEAVE SOON HE WILL NOT BE ABLE TO GET HER EVERYTHING SHE NEEDS. CM SUGGESTED CLAUDIA GO TAKE CARE OF HIS ERRANDS NOW AND CALL WHEN HE RETURNS HOME. ONCE CLAUDIA IS HOME, CM WILL CALL [facility] TO BRING PT HOME. PT IS A MEMBER OF [facility], THEY HAVE ALREADY AUTHORIZED AMBULANCE TRANSPORT AND HAVE SKILLED NURSES THAT WILL FOLLOW UP WITH PT POST DC
--- NOTE | 2020-05-24 13:27 | MHC.CM.PN ---
OBI spoke to Jayne CROCKER who reports the pts mental health nurse called yesterday and specifically requested a psych eval for this pt as she is verbally abusive to her . OBI explained the pt is not exhibiting any such behaviors here and was encephalopathic on arrival. Jayne CROCKER upset stating, this was our one chance to get her on [psych] meds and stated she will probably be back in the hospital. OBI explained if the pt had an eval at this time she would certainly be cleared since she is not exhibiting any of the described behaviors. Jayne CROCKER indicated she would be contacting pts mental health nurse and informing her that we were refusing to do the eval. OBI encouraged her to call back with any further questions. OBI was also informed they do not provide any skilled services and any aftercare needs should be referred to an outside agency. [facility] is currently verifying PCP
--- NOTE | 2020-05-24 14:51 | MHC.CM.PN ---
DC note CM received a message that pts had called to report he would be home in 30 minutes. [facility] and [facility] a chair van for 1600 hours. CM will call pts ([phone]) and inform him of DC time. [facility] will contact pt directly to schedule start of service
--- NOTE | 2020-05-24 15:14 | W.MHC.F2F ---
Service Date Service Date: 05/24/20 Reasons for Services Reason for usp: medication management Reason for physical therapy: home safety and mobility and therapeutic exercises overseeing care: Lionel Garcia MD Homebound: Leaving the home is medically contraindicated at this time without the asist of a device and/or another person due th the listed conditions above and below. Certification: Based on the above findings, I certify that this patient is confined to the home and needs intermittent usp care, physical therapy and/or speech therapy, or continues to need occupational therapy. The patient is under my care, and I have initiated the establishment of the plan of care. The patient will be followed by a physician who will periodically review the plan of care.
--- NOTE | 2020-05-24 15:23 | PM.DS ---
DS: Providers Provider Date of admission: 05/22/20 20:16 Primary care physician: Lionel Garcia MD Consults: 05/23/20 00:21 Consult to Physician Routine Consulting Provider[place] [facility] Reason for consultation: hypertensive urgency Has provider been notified: No DS: Diagnosis Discharge Diagnosis (1) Hypertensive encephalopathy: Status: Acute (2) Hypertensive urgency: Status: Acute (3) Altered mental status: Status: Acute (4) Abnormal EKG: Status: Acute Problem details: QTc is prolonged. Avoid all QT prolonging drugs. Correct lytes. Repeat EKG with QTC of 490 milliseconds but slightly improved from the previou. DS: Summary Time Spent with Patient Time attestation: admission note HPI 84 y/o female with no pertinent PMHX who presented from home due to AMS. Patient at present is AAOx3, reports that came to the ED due to elevated BP . Jayden reported earlier that patient was agitated and not herself stating that had an appointment with her PCP tomorrow but it was actually in 2 weeks from now for what her called EMS. On presentation patient is found to have baseline mental status but with elevated BP of 236/94 mmHg. Patient was given one dose of hydralazine IV and Lopressor with minimal improvement on BP for what medicine was called for admission . Patient was seen and evaluated at the bedside, BP now of 185/74 mmHg and HR of 89. One dose of lopressor to be given now stat. Patient denies any chest pain, SOB, nausea, vomiting or fever. EKG was reviewed which was NSR, no evidence of any acute ST T wave changes. CXR normal. CT head negative for any acute intracranial pathology. The patient was admitted to the hospital for evaluation of encephalopathy hypertensive urgency. She was treated with IV doses of hydralazine and labetalol with good response. Changed to her home dose metoprolol with addition of amlodipine with fair response and blood pressure. she was evaluated by Cardiology who recommended bringing her blood pressure slowly. Her readings within the last 24 hours are mainly systolic hypertension of 140-160. diastolic blood pressure was normal around 80. Her Mental status improved back to baseline with controlled blood pressure readings. To continue home dose metoprolol To start amlodipine 10 mg daily To monitor blood pressure at home and report readings to PCP for further adjustments of her medications Quality: VTE VTE Discharge Instructions: Encouragement of compliance with therapeutic regimen Physical Exam Vital Signs and I&O and Narrative: Vital Signs and I&O: Vital Signs Temp 97.2 F 05/24/20 12:00 Pulse 98 05/24/20 13:26 Resp 18 05/24/20 12:00 BP 160/84 H 05/24/20 13:26 Pulse Ox 93 05/24/20 13:26 Intake & Output 05/23/20 05/24/20 05/24/20 18:59 06:59 18:59 Intake Total 470 / 470 360 / 360 Output Total 501 / 1251 750 / 1251 300 / 300 Balance -31 / -781 -750 / -781 60 / 60 Urine Output (Aver age ml/kg/hr) 0.61 0.92 0.37 Intake: Intake, Oral [place] unt 420 / 420 360 / 360 Intake, IV Amoun t 50 / 50 Magnesium Sulf ate/H2O 2 gm In 50 / 50 50 ml @ 50 mls /hr IV ONCE ONE Rx#:[id number] Output: Output, Urine Am ount 500 / 1250 750 / 1250 300 / 300 Output, Stool Am ount / Other: Breakfast % Eate n 25% 75% Lunch % Eaten 50% 75% Dinner % Eaten 100% Stool Bedside Commode Stool Color Yellow Stool Consistenc y Loose Body Mass Index 29.2 Constitutional : Alert, oriented, not in distress Neck : Normal inspection, Supple Cardiovascular : RRR, S1 S2, no lower extremity edema Respiratory : Good bilateral air entry, no crackles, wheezes or rhonchi Gastrointestinal: soft, lax, Normal bowel sounds, Non tender Skin : Warm/Dry, No rash Neurological : Alert & oriented x3, No focal deficit DS: Data Data Completed and Pending Labs on day of discharge: Labs from last 24 hours 05/24/20 05/24/20 05:55 05:55 WBC 9.4 RBC 4.02 L Hgb 12.7 Hct 39.1 MCV 97.3 MCH 31.6 MCHC 32.5 RDW 13.7 Plt Count 326 MPV 10.1 Immature Gran % (Auto) 0.2 Neut % (Auto) 63.5 Lymph % (Auto) 24.4 [place] % (Auto) 7.9 Eos % (Auto) 2.9 Baso % (Auto) 1.1 Lymph # (Auto) 2.3 [place] # (Auto) 0.8 Eos # (Auto) 0.3 Baso # (Auto) 0.1 Abs Immat Gran (auto) 0.02 Absolute Neuts (auto) 6.0 Absolute Nucleated RBC 0.000 Nucleated RBC % (auto) 0.0 Sodium 139 Potassium 3.5 Chloride 105 Carbon Dioxide 25 Anion Gap 13 BUN 16 Creatinine 0.71 Estim Creat Clear Calc 51.6 Estimated GFR > 60 Random Glucose 101 Calcium 8.5 Discharge Plan Discharge Patient Disposition: Home, Self-Care Referrals: [facility] [Outside] Lionel Garcia MD [Primary Care Provider] - (DR GARCIA'S TRIAGE NURSE WILL CONTACT YOU DIRECTLY WITH AN AFTERCARE APPOINTMENT ) Discharge Medications: New amlodipine 5 mg Tablet 10 mg PO DAILY Qty: 60 RF: 0 Continued atorvastatin 40 mg tablet 1 tab PO DAILY RF: 0 metoprolol succinate 25 mg tablet extended release 24 hr 1 tab PO DAILY RF: 0 Discharge Orders: Discharge Order (Routine); Ordered 05/24/20 Ordered By: Deshaun Rios Diet: advance to your usual diet Activity on Discharge: As tolerated Other Ambulatory Orders: Basic Metabolic Panel (Routine) Timeframe: 20200528 Facility: [facility] - Location: Laboratory Ordered By: Deshaun Rios Visit Report Forms: Patient Portal Discharge page Care Plan Goals: See below Health Concerns: see below Plan of Treatment: you were admitted to the hospital for evaluation of changes in mental status. You were found to have significantly high blood pressure readings. You were treated with IV and oral blood pressure medications with good response. Continue metoprolol Home dose start amlodipine 10 mg daily Check your blood pressure readings for 1 week and report them to your PCP for further adjustments of your blood pressure medications.
== END 2020-05-24 16:00 | disposition home or self-care (01) | DRG 305 ==
LOC: HO.ED 19:21 → HO.IMC 20:43
PROVIDERS: Admitting Provider Internal Medicine; Emergency Provider Emergency Medicine; PCP Internal Medicine; Visit Provider Student in an Organized Health Care Education/Training Program
DX: I16.0 Hypertensive urgency (principal); I67.4 Hypertensive encephalopathy; I10 Essential (primary) hypertension; E78.5 Hyperlipidemia, unspecified; I45.81 Long QT syndrome; Z79.899 Other long term (current) drug therapy
CPT/HCPCS: 36415; 70450; 71045; 80048; 80053; 80061; 80076; 81001; 83690; 84443; 84484; 85025; 93005; 96374; 96375; 97162; 99284; 99291; J3475

== ENCOUNTER 2020-07-23 10:20 | Inpatient (IN) | payer MEDICARE, SELFPAY ==
[2020-07-23] VITALS (7 sets, daily range): BP systolic 155–188; BP diastolic 58–90; PULSE 80–98; RESP 12–18; TEMP 36.4–36.9; O2SAT 95–97; BMI 28.0
--- NOTE | 2020-07-23 | MR_ITS ---
EXAMINATION: MR BRAIN WITHOUT CONTRAST CLINICAL INFORMATION: Right-sided weakness. Slurred speech. COMPARISON: CT head from 07/23/2020. Brain MRI from 09/10/2016. TECHNIQUE: MRI of the brain was obtained using routine sequences without contrast. FINDINGS: Small region of white matter restricted diffusion within the posterior left early radiata extending to the left precentral gyrus. Associated T2 FLAIR hyperintensity. Multifocal foci of blooming artifact throughout the supratentorial parenchyma, the deep nuclei, the brainstem, and the cerebellum consistent with petechial microhemorrhage are mildly progressed compared to 2017 (most notably in the right thalamus). No evidence of additional acute intracranial hemorrhagic products. Chronic encephalomalacia of the superior left cerebellar hemisphere. Scattered periventricular and deep white matter T2 FLAIR hyperintensities consistent with moderate underlying microangiopathy. Ex vacuo dilatation of the left lateral ventricle. Otherwise, proportional prominence of the ventricles and sulcal spaces without evidence of obstructive hydrocephalus. No abnormal mass effect. No midline shift. Normal appearance of the pituitary gland. The cerebellar tonsils are normally positioned. Normal arterial and venous vascular flow voids are present. Normal, homogeneous marrow signal. Mild mucosal thickening of the paranasal sinuses. No signal abnormalities within the mastoids. MR/MR head/brain wo con IMPRESSION: 1. 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 Associated T2 FLAIR hyperintensity. 2. 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 3. Chronic encephalomalacia of the left cerebellar hemisphere. Moderate underlying microangiopathic white matter change.
--- NOTE | 2020-07-23 10:35 | ECG_ITS ---
Test Reason : STROKE SXS Blood Pressure : / mmHG Vent. Rate : 086 BPM Atrial Rate : 086 BPM P-R Int : 130 ms QRS Dur : 094 ms QT Int : 386 ms P-R-T Axes : 064 056 085 degrees QTc Int : 461 ms Normal sinus rhythm Nonspecific ST and T wave abnormality When compared with ECG of 24-MAY-2020 01:09, No significant change was found Referred By: Debi Gallardo Electronically Signed By:DASHA GUEVARA
--- NOTE | 2020-07-23 10:36 | CT_ITS ---
EXAMINATION: CHEST AND CT BRAIN WITHOUT CONTRAST. CLINICAL INFORMATION: Left-sided weakness. COMPARISON: None TECHNIQUE: 5 mm thin axial and reformatted 2 mm thin sagittal and coronal images of brain were obtained. DLP 636 mGy. Chest one view. FINDINGS: Chest: The lungs are well-expanded and clear. The heart size and pulmonary vascularity is normal. There is mild spondylosis dorsal spine. Brain: There is no acute intra-axial, extra-axial bleed, masses, collection or midline shift. The [place] to white matter differentiation is maintained. There is old left cerebellar lobe encephalomalacia from previous insult. No acute infarct in evolution seen. The [place] to white matter differentiation is maintained. The lateral ventricles are moderately enlarged and so are the cortical sulci consistent with cerebral volume loss. A punctate lacunar infarction is suspected left centrum semiovale. Bone windows reveal no calvarial abnormality. There is no scalp soft tissue abnormality. Bilateral paranasal sinuses and mastoid air cells are well aerated. CT/CT head/brain wo con IMPRESSION: No acute intracranial process seen. Left cerebellar encephalomalacia, stable. Moderate cerebral volume loss. Mild chronic small vessel ischemic changes. Unremarkable chest exam.
--- NOTE | 2020-07-23 10:38 | ED.WEAKNESS ---
HPI - Weakness General Chief complaint: Stroke Stated complaint: arm weakness,slurred speech x2days Time Seen by Provider: 07/23/20 10:22 Source: patient and EMS Mode of arrival: EMS History of Present Illness HPI Narrative: 84-year-old female with a past medical history of HTN, CVA, BIBA for right arm and leg weakness / pain & slurred speech x2-3 days. Per EMS patient refused to come to ED initally, however, ambulance was called today due to 's increased concern. reported patient now dragging walker, and slurred speech is new. Patient reports diarrhea today. Denies CP/SOB, abdominal pain, nausea, fever, cough, falls MD Complaint: focal weakness Onset (ago): day(s) Duration: constant Related Data Home Medications Medication Instructions Recorded Confirmed atorvastatin 1 tab PO DAILY 05/22/20 05/29/20 Previous Rx's Medication Instructions Recorded amlodipine 5 mg tablet 10 mg PO DAILY 30 Days #60 tab 06/20/20 metoprolol succinate 25 mg 25 mg PO DAILY 90 Days #90 tab 06/20/20 tablet,extended release 24 hr miscellaneous medical supply #1 ea 07/09/20 blood pressure monitor #1 ea 07/19/20 Allergies Allergy/AdvReac Type Severity Reaction Status Date / Time egg [EGG] Allergy Unknown UNKNOWN Verified 05/29/20 09:45 STREPTOMYCES ANTIBIOTICUS Allergy Unknown UNKNOWN Uncoded 05/22/20 16:39 DRVD Review of Systems Review of Systems: Constitutional: No Weight loss, No Fever, No Chills Cardiovascular: No Chest Pain, No SOB, No Edema, No Palpitations Respiratory: No Cough, No Sputum, No Wheezing Gastrointestinal: No Nausea, No Vomiting, + Diarrhea, No Constipation, No Abdominal pain Musculoskeletal: +RUE and RLE pain Skin: No Skin Lesions, No rash Neuro: + Weakness, No Numbness, No Headache Yes all other systems are reviewed and are negative [facility] Past Medical History Attestation statement: The following information was validated with the patient. Medical History (Updated 07/23/20 @ 12:16 by DELORIS Herndon) CVA (cerebral vascular accident) Dementia Hypertension Surgical History (Updated 05/29/20 @ 09:47 by OLLIE Fraser) History of cholecystectomy History of nephrolithotomy with removal of calculi Family History Family History (Updated 05/29/20 @ 09:47 by Radha Lozano Maged) Father No problems noted. Mother No problems noted. Social History Social History Household Members: Spouse Housing: House Smoking Status: Never smoker Advance Directives: No Advance Directives Information Provided: Yes service: No Physical Exam Vital Signs: Vital Signs: Last Vital Signs Temp 98.5 F 07/23/20 10:33 Pulse 91 07/23/20 12:06 Resp 12 07/23/20 12:06 BP 155/71 H 07/23/20 12:06 Pulse Ox 97 07/23/20 10:33 Body Mass Index 28.0 Const: General: cooperative Orientation/consciousness: patient oriented x3 Limitations: no limitations HENMT: Head: Yes normal to inspection Ears: hearing grossly normal bilaterally General nose exam: Normal external nose present Eyes: General: appearance normal, both eyes and all related structures Pupils: Equal, round and reactive pupils present EOM: EOMs intact bilaterally Neck: Neck: Yes normal visual inspection and Yes no meningeal signs Resp: Effort & Inspection: normal respiratory effort Auscultation: clear to auscultation bilaterally, no rhonchi and no wheezes Cardio: Rate: regular rate Heart sounds: S1 normal heart sound present and S2 normal heart sound present GI: Inspection: Yes normal to inspection Palpation (GI): Soft to palpation, nontender, no guarding and not rigid Skin: Rashes: no rashes Wounds: no wounds Neuro: Other: +mild right sided facial droop General: patient oriented x3, tone normal and no meningeal signs Cranial nerves: Yes Equal, round and reactive pupils present Speech: Abnormal speech present (slow, mildly slurred) Motor exam (neuro): Abnormal motor strength present (RUE and RLE weakness) Coordination: [id number] test normal Extrem: General: Yes normal to inspection NIH Stroke Scale Internal: Initial- Upon Arrival Level of Consciousness: Alert Level of Consciousness Questions: Answers both questions correctly Level of Consciousness Commands: Performs both tasks correctly Best Gaze: Normal Visual: No visual loss Facial Palsy: Minor paralyis Motor Arm (Right): Some effort against gravity Motor Arm (Left): No drift Motor Leg (Right): Some effort against gravity Motor Leg (Left): No drift Limb Ataxia: Absent Sensory: Normal Best Language: No aphasia Dysarthia: Mild to moderate dysarthria Extinction and Inattention: No abnormality Score: 6 Course Course Course Narrative: -1215--head CT and CXR without acute findings -labs unremarkable, UA with blood/not infected -jewelry sales coordinator evaluated patient in ED, will admit for further management MDM - Weakness MDM Narrative Medical decision making narrative: 84-year-old female with a past medical history of HTN, CVA, BIBA for right arm and leg weakness / pain & slurred speech x2-3 days. On examVSS, NAD, physical exam as above, R sided weakness noted with mild slurred speech. Unclear what deficits are old vs new/subacute. Concern for subacute CVA vs ICH. R/o metabolic/infectious etiology Plan: EKG, Labs, UA, CXR, Head CT, Admission Lab Data Result diagrams: 07/23/20 11:37 07/23/20 11:37 Labs: Lab Results 07/23/20 07/23/20 07/23/20 Range/Units 10:57 11:37 11:37 WBC 8.3 (4.8-10.8) X10*3/uL RBC 4.08 L (4.20-5.50) X10*6/uL Hgb 13.1 (12.0-16.0) g/dl Hct 40.5 (37-47) % MCV 99.3 H (80-98) fL MCH 32.1 (27.0-33.0) pg MCHC 32.3 (31.0-35.0) g/dl RDW 13.7 (11.0-16.0) % Plt Count 322 (160-400) X10*3/uL MPV 9.3 L (9.4-12.3) fL Immature Gran % (Auto) 0.0 (0.0-0.4) % Neut % (Auto) 70.9 (45-73) % Lymph % (Auto) 19.6 L (20-40) % [place] % (Auto) 6.7 (2-11) % Eos % (Auto) 1.6 (0-4) % Baso % (Auto) 1.2 (0-2) % Lymph # (Auto) 1.6 (1.2-4.9) X10*3/uL [place] # (Auto) 0.6 (0.1-1.2) X10*3/uL Eos # (Auto) 0.1 (0.0-0.4) X10*3/uL Baso # (Auto) 0.1 (0.0-0.2) X10*3/uL Abs Immat Gran (auto) 0.00 (0.00-0.03) X10*3/uL Absolute Neuts (auto) 5.9 (2.0-8.3) X10*3/uL Absolute Nucleated RBC 0.000 (0.0-0.012) X10*3/uL Nucleated RBC % (auto) 0.0 (0.0-0.2) /100WBC PT 11.2 (10.8-13.0) SEC INR 0.9 (0.9-1.1) APTT 24.3 (24.1-38.0) SEC Sodium (135-145) mmol/L Potassium (3.3-5.1) mmol/l Chloride (96-108) mmol/L Carbon Dioxide (22-29) mmol/L Anion Gap (12-20) BUN (9-16) mg/dL Creatinine (0.5-1.4) mg/dL Estim Creat Clear Calc Estimated GFR POC Glucose 92 (60-115) mg/dL Random Glucose (60-115) mg/dL Calcium (8.4-10.2) mg/dL Magnesium (1.6-2.6) mg/dL Total Bilirubin (0.0-1.0) mg/dL Direct Bilirubin (0.0-0.5) mg/dL AST (5-31) U/L ALT (0-31) U/L Alkaline Phosphatase (39-117) U/L Troponin I High Sens (<3.5-17.0) ng/L B-Natriuretic Peptide (<100) pg/mL Total Protein (6.5-8.0) g/dL Albumin (3.5-5.0) g/dL Urine Color Urine Appearance Urine pH (5.0-8.0) Ur Specific [place] (1.005-1.025) Urine Protein (NEG-TRACE) MG/DL Urine Glucose (UA) (NEG) MG/DL Urine Ketones (NEG) MG/DL Urine Blood (NEG) Urine Nitrite (NEG) Ur Leukocyte Esterase (NEG) Urine RBC (0) /HPF Urine WBC (0-4) /HPF Ur Squamous Epith Cells /LPF Ur Renal Epithelial Cell /LPF Urine Bacteria /LPF 07/23/20 07/23/20 07/23/20 Range/Units 11:37 11:37 12:12 WBC (4.8-10.8) X10*3/uL RBC (4.20-5.50) X10*6/uL Hgb (12.0-16.0) g/dl Hct (37-47) % MCV (80-98) fL MCH (27.0-33.0) pg MCHC (31.0-35.0) g/dl RDW (11.0-16.0) % Plt Count (160-400) X10*3/uL MPV (9.4-12.3) fL Immature Gran % (Auto) (0.0-0.4) % Neut % (Auto) (45-73) % Lymph % (Auto) (20-40) % [place] % (Auto) (2-11) % Eos % (Auto) (0-4) % Baso % (Auto) (0-2) % Lymph # (Auto) (1.2-4.9) X10*3/uL [place] # (Auto) (0.1-1.2) X10*3/uL Eos # (Auto) (0.0-0.4) X10*3/uL Baso # (Auto) (0.0-0.2) X10*3/uL Abs Immat Gran (auto) (0.00-0.03) X10*3/uL Absolute Neuts (auto) (2.0-8.3) X10*3/uL Absolute Nucleated RBC (0.0-0.012) X10*3/uL Nucleated RBC % (auto) (0.0-0.2) /100WBC PT (10.8-13.0) SEC INR (0.9-1.1) APTT (24.1-38.0) SEC Sodium 141 (135-145) mmol/L Potassium 4.6 D (3.3-5.1) mmol/l Chloride 109 H (96-108) mmol/L Carbon Dioxide 24 (22-29) mmol/L Anion Gap 13 (12-20) BUN 17 H (9-16) mg/dL Creatinine 0.79 (0.5-1.4) mg/dL Estim Creat Clear Calc 45.4 Estimated GFR > 60 POC Glucose (60-115) mg/dL Random Glucose 105 (60-115) mg/dL Calcium 9.0 (8.4-10.2) mg/dL Magnesium 1.9 (1.6-2.6) mg/dL Total Bilirubin 0.5 (0.0-1.0) mg/dL Direct Bilirubin 0.2 (0.0-0.5) mg/dL AST 21 (5-31) U/L ALT 15 (0-31) U/L Alkaline Phosphatase 66 D (39-117) U/L Troponin I High Sens 6.8 (<3.5-17.0) ng/L B-Natriuretic Peptide 76 (<100) pg/mL Total Protein 7.2 (6.5-8.0) g/dL Albumin 4.2 (3.5-5.0) g/dL Urine Color STRAW Urine Appearance CLOUDY Urine pH 5.5 (5.0-8.0) Ur Specific [place] 1.020 (1.005-1.025) Urine Protein TRACE (NEG-TRACE) MG/DL Urine Glucose (UA) NEG (NEG) MG/DL Urine Ketones NEG (NEG) MG/DL Urine Blood 2+ H (NEG) Urine Nitrite NEG (NEG) Ur Leukocyte Esterase 1+ H (NEG) Urine RBC 5-9 H (0) /HPF Urine WBC 1-4 (0-4) /HPF Ur Squamous Epith Cells 1+ /LPF Ur Renal Epithelial Cell TRACE /LPF Urine Bacteria 1+ /LPF Discharge Plan Discharge Clinical Impression: Cerebrovascular accident Patient Disposition: Admitted As Inpatient
--- NOTE | 2020-07-23 10:43 | PC.NURSE ---
PT TO CT SCAN
[2020-07-23 11:09] LABS: Glucose, Whole Blood 92 mg/dL (60-115)
[2020-07-23 11:49] LABS: MANUAL DIFF FLAG NO
[2020-07-23 11:52] LABS: Basophils Absolute Auto 0.1 X10*3/uL (0.0-0.2); Basophils Percent Auto 1.2 % (0-2); Eosinophils Absolute Auto 0.1 X10*3/uL (0.0-0.4); Eosinophils Percent Auto 1.6 % (0-4); Hematocrit 40.5 % (37-47); Hemoglobin 13.1 g/dl (12.0-16.0); Lymphocytes Absolute Auto 1.6 X10*3/uL (1.2-4.9); Lymphocytes Percent Auto 19.6 % (20-40); Mean Corpuscular HGB Conc 32.3 g/dl (31.0-35.0); Mean Corpuscular Hemoglobin 32.1 pg (27.0-33.0); Mean Corpuscular Volume 99.3 fL (80-98); Mean Platelet Volume 9.3 fL (9.4-12.3); Monocytes Absolute Auto 0.6 X10*3/uL (0.1-1.2); Monocytes Percent Auto 6.7 % (2-11); Neutrophils Absolute Auto 5.9 X10*3/uL (2.0-8.3); Neutrophils Percent Auto 70.9 % (45-73); Platelet Count 322 X10*3/uL (160-400); Red Blood Count 4.08 X10*6/uL (4.20-5.50); Red Cell Distribution Width 13.7 % (11.0-16.0); White Blood Count 8.3 X10*3/uL (4.8-10.8)
[2020-07-23 12:04] LABS: INTERNATIONAL NORM RATIO 0.9 (0.9-1.1); Prothrombin Time 11.2 SEC (10.8-13.0)
[2020-07-23 12:07] LABS: Partial Thromboplastin Time 24.3 SEC (24.1-38.0)
--- NOTE | 2020-07-23 12:14 | MHC.STROKE ---
Addendum entered by Charley Campoverde RN 07/24/20 10:28: I MET WITH PATIENT AGAIN TODAY AND PROVIDED STROKE EDUCATION, REVIEWED BOOKLET, AND MRI IMAGE OF THE STROKE AND LOCATION, SHE UNDERSTOOD BUT REQUIRED REINFORCEMENT. WE DISCUSSED THE PT/OT RECOMMENDATIONS FOR SHORT TERM REHAB AND SHE WANTS TO GO SOMEWHERE CLOSE TO HOME. I DID DISCUSS THE CASE WITH GUILLAUME THE MANUFACTURING BUSINESS ANALYST. I ALSO REFERRED HER TO MY NOTE. Addendum entered by Charley Campoverde RN 07/23/20 15:14: I RECEIVED A CALL FROM THE NURSE JESSICA. THE PATIENTS BASELINE IS THAT SHE WALKS INDEPENDENTLY WITH A WALKER ALTHOUGH HER GAIT IS OFF AND SLOW, SHE HAS BEEN EXPERIENCING COMBATIVE BEHAVIOR AND HAS BEEN UNCOOPERATIVE. SHE SAID THEY LIVE IN [facility] . THE IS INDEPENDENT. THEY GET MEALS ON WHEELS. SHE HAS BEEN GOING TO HER HOME FOR THE PAST 2 MONTHS AND HAS NURSES 2X/WEEK. I DIDN'T ASK ABOUT TESTBOARD OPERATOR SERVICES. TODAY SHE WENT TO THE HOME AFTER THE PATIENT WAS REFUSING TO GO TO THE HOSPITAL SINCE WEDNESDAY. THE PATIENT WAS INCONTINENT OF FECES AND URINE AND NOTHING WAS CLEANED UP. SHE CALL EMS AND WAS TRANSFERRED TO [facility] ED. Addendum entered by Charley Campoverde RN 07/23/20 14:55: I JUST RECEIVED A CALL FROM HARPAL LE [phone]. SHE PROVIDED ME WITH SOME INFORMATION REGARDING THE PATIENT AND HER . SHE MENTIONED THAT THE PATIENT HAD WEAKNESS SINCE Wednesday07/21/20. THE IS EXPERIENCING CAREGIVER BURNOUT AND HE MENTIONED LONG=TERM CARE FOR HIS . SHE WASN'T SURE ABOUT MEDICATION COMPLIANCE AND WILL FAX ME SOME OF THE NOTES. I WILL RELAY THIS INFORMATION TO CASE MANAGEMENT AND SHE WOULD CASE MANAGEMENT TO CONTACT HER ONCE A WORKER IS ASSIGNED. Addendum entered by Charley Campoverde RN 07/23/20 13:54: PATIENT HAS [employer] [facility] #[phone], LIAISON [phone], I DID LEAVE A MESSAGE ON BOTH NUMBERS TO GET BASELINE INFORMATION. Original Note: 1012 PRE-NOTIFIED BY [facility] FOR POSSIBLE STROKE, ONSET COULD HAVE BEEN ON Wednesday07/20/20, THEREFORE SHE IS OUT OF THE WINDOW FOR TPA. NIHSS = 6 RIGHT ARM AND LEG STIFF AND DIFFICULT TO MOVE, RIGHT DROOP, UNABLE TO DETERMINE BASELINE. I WILL TRY TO FIND OUT WHICH VNA SHE HAS AND GET MORE INFORMATION AND TO ASSESS HER BASELINE. I CLARIFIED THAT SHE DOES NOT HAVE [place] [facility]. 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 AT THAT TIME SHE WAS DISCHARGED ON ASPIRIN AND A STATIN. SHE SAID SHE IS NOT TAKING ASPIRIN. SHE PASSED SWALLOW SCREEN. SOME OF HER ANSWERERS ARE UNRELIABLE. AND SHE IS SOMEWHAT UNKEPT. I DID EXPLAIN TO HER THAT SHE IS BEING ADMITTED AND WE ARE CHECKING TO SEE IF SHE HAD A STROKE. SHE CLAIMS THAT HER RIGHT SIDE HAS BEEN WEAK FOR AWHILE. I WILL NEED TO VERIFY HER INFORMATION. HER LAST ECHO WAS 08/2016. I WILL CONTINUE TO FOLLOW.
[2020-07-23 12:23] LABS: Alanine Aminotransferase 15 U/L (0-31); Albumin Level 4.2 g/dL (3.5-5.0); Alkaline Phosphatase 66 U/L (39-117); Anion Gap 13 (12-20); Aspartate Amino Transferase 21 U/L (5-31); Bilirubin Direct 0.2 mg/dL (0.0-0.5); Bilirubin Total 0.5 mg/dL (0.0-1.0); Blood Urea Nitrogen 17 mg/dL (9-16); Carbon Dioxide 24 mmol/L (22-29); Chloride 109 mmol/L (96-108); Creatinine Clr Calc Pharmacy 45.4; Estimated Glomerular Filt Rate > 60; Glucose Random 105 mg/dL (60-115); Magnesium 1.9 mg/dL (1.6-2.6); Potassium 4.6 mmol/l (3.3-5.1); Sodium 141 mmol/L (135-145); Total Protein 7.2 g/dL (6.5-8.0)
[2020-07-23 12:24] LABS: Glucose Urine UA NEG (NEG); Leukocyte Esterase Urine 1+ (NEG); Nitrite Urine NEG (NEG); PH 5.5 (5.0-8.0); Urine Blood 2+ (NEG); Urine Ketones NEG (NEG); Urine Protein TRACE MG/DL (NEG-TRACE)
[2020-07-23 12:25] LABS: Appearance Urine CLOUDY; Color Urine STRAW
[2020-07-23 12:25] LABS: B Type Natriuretic Peptide 76 pg/mL (<100); Troponin-I High Sensitivity 6.8 ng/L (<3.5-17.0)
[2020-07-23 12:35] LABS: Bacteria Urine 1+ /LPF; Renal Epithelial Cells Urine TRACE /LPF; Squamous Epithelial Cell Urine 1+ /LPF
[2020-07-23 13:15] LABS: COVID-19 Test Negative (Negative); IDNOW Serial# 9DD0AD1C
[2020-07-23] MEDS: Acetaminophen 325 MG TABLET 650 MG PO ×2 (13:34→23:07)
--- NOTE | 2020-07-23 13:58 | PM.IMHP ---
History of Present Illness Date of Service: 07/23/20 Chief Complaint: Right-sided weakness An 84 years old lady with past medical history of hypertension, HLD who presents to the hospital with reported right-sided weakness. The patient reports feeling around her baseline until this weekend when she noticed at walking with a walker isn't normal as before. She noticed that she is dragging her right foot and she is weaker on the right side. She is right-handed and her right hand was acting of. Her symptoms did not improve over the last 2 days and continue to feel weaker. She also reports slurred speech which seems to be new since May when she was admitted to the hospital. Unclear if it is related to this new event of right-sided weakness. In the emergency CT scan of head was negative for any acute findings Admitted for further evaluation and treatment. Review of Systems Review of Systems: Right-sided weakness mainly on the lower extremity, partially in the upper extremity, slurred speech No fever, chills or weakness No chest pain, palpitation No shortness of breath or coughing No abdominal pain, nausea or vomiting No urinary symptoms No any rash or wounds Neurologic: Reports Abnormal speech present (slow, mildly slurred) [facility] Medical History CVA (cerebral vascular accident) Dementia Hypertension Family History (Updated 05/29/20 @ 09:47 by OLLIE Frsaer) Father No problems noted. Mother No problems noted. Surgical History (Updated 05/29/20 @ 09:47 by OLLIE Fraser) History of cholecystectomy History of nephrolithotomy with removal of calculi Social History Household Members: Spouse Housing: House Smoking Status: Never smoker Advance Directives: No Advance Directives Information Provided: Yes service: No Meds Allergies Allergy/AdvReac Type Severity Reaction Status Date / Time egg [EGG] Allergy Unknown UNKNOWN Verified 05/29/20 09:45 STREPTOMYCES ANTIBIOTICUS Allergy Unknown UNKNOWN Uncoded 05/22/20 16:39 DRVD Home Medications Medication Instructions Recorded Confirmed Type atorvastatin 1 tab PO DAILY 05/22/20 05/29/20 History Physical Exam Vital Signs and Narrative: Vital Signs: Last Vital Signs Temp 98.5 F 07/23/20 10:33 Pulse 91 07/23/20 12:06 Resp 12 07/23/20 12:06 BP 155/71 H 07/23/20 12:06 Pulse Ox 97 07/23/20 10:33 Body Mass Index 28.0 Constitutional : Alert, oriented, not in distress Neck : Normal inspection, Supple Cardiovascular : RRR, S1 S2, no lower extremity edema Respiratory : Good bilateral air entry, no crackles, wheezes or rhonchi Gastrointestinal: soft, lax, Normal bowel sounds, Non tender Skin : Warm/Dry, No rash Neurological : Alert & oriented x3, right-sided weakness more noted in the RLE power +3, or RUE power +4 with no cranial nerves involvement noticed. Neuro: Speech: Abnormal speech present (slow, mildly slurred) Results Labs CBC and Chem 7: 07/23/20 11:37 07/23/20 11:37 Labs: Laboratory Results - last 24 hr 07/23/20 07/23/20 07/23/20 10:57 11:37 11:37 MCV 99.3 H MCH 32.1 MCHC 32.3 RDW 13.7 Plt Count 322 MPV 9.3 L Immature Gran % (Auto) 0.0 Neut % (Auto) 70.9 Lymph % (Auto) 19.6 L [place] % (Auto) 6.7 Eos % (Auto) 1.6 Baso % (Auto) 1.2 Lymph # (Auto) 1.6 [place] # (Auto) 0.6 Eos # (Auto) 0.1 Baso # (Auto) 0.1 Abs Immat Gran (auto) 0.00 Absolute Neuts (auto) 5.9 Absolute Nucleated RBC 0.000 Nucleated RBC % (auto) 0.0 PT 11.2 INR 0.9 APTT 24.3 Anion Gap Estim Creat Clear Calc Estimated GFR POC Glucose 92 Random Glucose Calcium Magnesium Total Bilirubin Direct Bilirubin AST ALT Alkaline Phosphatase Troponin I High Sens B-Natriuretic Peptide Total Protein Albumin Urine Color Urine Appearance Urine pH Ur Specific [place] Urine Protein Urine Glucose (UA) Urine Ketones Urine Blood Urine Nitrite Ur Leukocyte Esterase Urine RBC Urine WBC Ur Squamous Epith Cells Ur Renal Epithelial Cell Urine Bacteria COVID-19 (WEN) COVID-19 Clin Com 07/23/20 07/23/20 07/23/20 11:37 11:37 12:12 MCV MCH MCHC RDW Plt Count MPV Immature Gran % (Auto) Neut % (Auto) Lymph % (Auto) [place] % (Auto) Eos % (Auto) Baso % (Auto) Lymph # (Auto) [place] # (Auto) Eos # (Auto) Baso # (Auto) Abs Immat Gran (auto) Absolute Neuts (auto) Absolute Nucleated RBC Nucleated RBC % (auto) PT INR APTT Anion Gap 13 Estim Creat Clear Calc 45.4 Estimated GFR > 60 POC Glucose Random Glucose 105 Calcium 9.0 Magnesium 1.9 Total Bilirubin 0.5 Direct Bilirubin 0.2 AST 21 ALT 15 Alkaline Phosphatase 66 D Troponin I High Sens 6.8 B-Natriuretic Peptide 76 Total Protein 7.2 Albumin 4.2 Urine Color Urine Appearance Urine pH Ur Specific [place] Urine Protein Urine Glucose (UA) Urine Ketones Urine Blood Urine Nitrite Ur Leukocyte Esterase Urine RBC Urine WBC Ur Squamous Epith Cells Ur Renal Epithelial Cell Urine Bacteria COVID-19 (WEN) Negative COVID-19 Clin Com See Note 07/23/20 12:12 MCV MCH MCHC RDW Plt Count MPV Immature Gran % (Auto) Neut % (Auto) Lymph % (Auto) [place] % (Auto) Eos % (Auto) Baso % (Auto) Lymph # (Auto) [place] # (Auto) Eos # (Auto) Baso # (Auto) Abs Immat Gran (auto) Absolute Neuts (auto) Absolute Nucleated RBC Nucleated RBC % (auto) PT INR APTT Anion Gap Estim Creat Clear Calc Estimated GFR POC Glucose Random Glucose Calcium Magnesium Total Bilirubin Direct Bilirubin AST ALT Alkaline Phosphatase Troponin I High Sens B-Natriuretic Peptide Total Protein Albumin Urine Color STRAW Urine Appearance CLOUDY Urine pH 5.5 Ur Specific [place] 1.020 Urine Protein TRACE Urine Glucose (UA) NEG Urine Ketones NEG Urine Blood 2+ H Urine Nitrite NEG Ur Leukocyte Esterase 1+ H Urine RBC 5-9 H Urine WBC 1-4 Ur Squamous Epith Cells 1+ Ur Renal Epithelial Cell TRACE Urine Bacteria 1+ COVID-19 (WEN) COVID-19 Clin Com Imaging Radiologist's Impressions: Impressions Chest X-Ray 07/23/20 10:36 IMPRESSION: No acute intracranial process seen. Left cerebellar encephalomalacia, stable. Moderate cerebral volume loss. Mild chronic small vessel ischemic changes. Unremarkable chest exam. Head CT 07/23/20 10:36 IMPRESSION: No acute intracranial process seen. Left cerebellar encephalomalacia, stable. Moderate cerebral volume loss. Mild chronic small vessel ischemic changes. Unremarkable chest exam. Assessment and Plan (1) Right sided weakness: Status: Acute (2) CVA (cerebral vascular accident): Status: Acute (3) Hypertension: Qualifiers: Hypertension type: essential hypertension Qualified Code(s): I10 - Essential (primary) hypertension Status: Acute An 84 years old lady with past medical history of hypertension, HLD who presents to the hospital with reported right-sided weakness. Right-sided weakness Slurred speech Likely secondary to stroke CT of the head negative for any acute findings next [place] to do MRI brain Start baby aspirin Start atorvastatin 80 mg at bedtime To get Neurology evaluation PT OT Hypertension Continue amlodipine and metoprolol for the time being DVT PPX Lovenox
[2020-07-23] MEDS: Aspirin Enteric Coated 81 MG TABLET.DR PO (14:20)
[2020-07-23] MEDS: 0.9 % Sodium Chloride Flush 3 ML SYRINGE IVFLUSH ×2 (16:59→23:23)
[2020-07-23] MEDS: Enoxaparin Sodium 40 MG/0.4 ML SYRINGE SUBCUT (16:59)
--- NOTE | 2020-07-23 17:24 | PC.NURSE ---
Patients blood pressure elevated upon arrival to unit, 188/79, HR 95. made aware, patient admitted for stroke, MRI scheduled for 1714.Will continue to monitor.
[2020-07-23] MEDS: Atorvastatin Calcium 80 MG TABLET PO (20:36)
[2020-07-23] MEDS: amLODIPine Besylate 5 MG TABLET 10 MG PO (23:22)
[2020-07-23] MEDS: Metoprolol Succinate ER 25 MG TAB.ER.24H PO (23:22)
[2020-07-24] VITALS (7 sets, daily range): BP systolic 123–167; BP diastolic 64–94; PULSE 80–110; RESP 18–20; TEMP 36.3–37.1; O2SAT 94–97
--- NOTE | 2020-07-24 | US_ITS ---
EXAMINATION: US EXTRACRANIAL CAROTID DUPLEX, BILATERAL CLINICAL INFORMATION: Stroke COMPARISON: 09/07/2016 TECHNIQUE: Real-time ultrasound and Doppler techniques (integrating B-mode 2-D vascular images, Doppler spectral analysis and color-flow Doppler imaging) were utilized to interrogate the extracranial carotid arteries, the vertebral arteries and proximal subclavian arteries bilaterally. The degree of stenosis is determined by criteria similar to NASCET. FINDINGS: Right Side: 1. There is moderate atherosclerotic plaque seen in the bifurcation/proximal ICA region. 2. The common carotid artery PSV proximally is 66 cm/s and distally 90 cm/s. 3. The proximal internal carotid artery velocities are 125 cm/s systolic and 38 cm/s diastolic. 4. The proximal external carotid artery PSV is 165 cm/s. 5. The vertebral artery shows antegrade flow. 6. The subclavian artery waveforms are normal. Left Side: 1. There is moderate atherosclerotic plaque seen in the bifurcation/proximal ICA region. 2. The common carotid artery PSV proximally is 89 cm/s and distally 62 cm/s. 3. The proximal internal carotid artery velocities are 87 cm/s systolic and 29 cm/s diastolic. 4. The proximal external carotid artery PSV is 246 cm/s. 5. The vertebral artery shows antegrade flow. 6. The subclavian artery waveforms are normal. US/US carotid duplex BI IMPRESSION: 1. 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 This has moved up in disease category since the prior study when the peak systolic velocity was 108 consistent with a 0-49% stenosis. 2. LEFT: Minimal, non-hemodynamically significant stenosis of the proximal left internal carotid artery corresponding to a 0-49% stenosis by velocity criteria. 3. A stenosis is also seen in the left ECA with an elevated velocity. 4. Mildly elevated velocities in left subclavian suggesting stenosis.
[2020-07-24 06:27] LABS: Hematocrit 41.5 % (37-47); Hemoglobin 13.4 g/dl (12.0-16.0); Mean Corpuscular HGB Conc 32.3 g/dl (31.0-35.0); Mean Corpuscular Hemoglobin 31.5 pg (27.0-33.0); Mean Corpuscular Volume 97.4 fL (80-98); Mean Platelet Volume 9.4 fL (9.4-12.3); Platelet Count 343 X10*3/uL (160-400); Red Blood Count 4.26 X10*6/uL (4.20-5.50); Red Cell Distribution Width 13.7 % (11.0-16.0); White Blood Count 9.2 X10*3/uL (4.8-10.8)
[2020-07-24 06:50] LABS: Anion Gap 16 (12-20); Blood Urea Nitrogen 14 mg/dL (9-16); Calcium 9.1 mg/dL (8.4-10.2); Carbon Dioxide 23 mmol/L (22-29); Chloride 106 mmol/L (96-108); Creatinine Clr Calc Pharmacy 49.1; Estimated Glomerular Filt Rate > 60; Glucose Random 96 mg/dL (60-115); Potassium 4.1 mmol/l (3.3-5.1); Sodium 141 mmol/L (135-145)
[2020-07-24 06:51] LABS: Cholesterol 211 mg/dL; HDL Cholesterol 50 mg/dL; LDL Cholesterol Calculated 123 mg/dl; Triglycerides 194 mg/dL
--- NOTE | 2020-07-24 07:43 | PC.NURSE ---
2300; BP elevated 188/78, hr 80. Pt does not have any bp meds ordered. Notified Dr. Clinton, amlodipine and metoprolol started. Medicated per emar.
[2020-07-24] MEDS: 0.9 % Sodium Chloride Flush 3 ML SYRINGE IVFLUSH ×3 (09:01→20:17)
[2020-07-24] MEDS: Aspirin Enteric Coated 81 MG TABLET.DR PO (09:01)
[2020-07-24] MEDS: amLODIPine Besylate 5 MG TABLET 10 MG PO (09:01)
[2020-07-24] MEDS: Metoprolol Succinate ER 25 MG TAB.ER.24H PO (09:01)
--- NOTE | 2020-07-24 09:51 | MHC.CM.PN ---
IMM 07/24/20 Lives w spouse. She ambulates with a walker. She sponge baths independently. Her assists prn. HCP on file from previous visit. Patient has homecare thru [facility]. DP home with resumption of [facility]. [facility] will arrange transportation at [place]. CM will follow.
[2020-07-24] MEDS: Acetaminophen 325 MG TABLET 650 MG PO (09:59)
--- NOTE | 2020-07-24 10:07 | MHC.CM.PN ---
Met with Charley Campoverde Laundry Routeman. She provided background information. Homecare provided by [facility] is contracted to [facility]. A VM was left for Mindy Raza, Nurse liason for [facility] [facility]. Contact info for Case Management dept provided. Per Charley Campoverde the Patient has not been taking medications as prescribed. Her is the primary C.G. He is having difficulties taking care of patient @ home. Dispo should be STR, possible LTC. PT/ preferences will be obtained and referred. CM will follow.
--- NOTE | 2020-07-24 11:49 | PM.NEUROCN ---
History of Present Illness Data of Consult Service Date: 07/24/20 Primary Care Provider: Unknown Physician 84 years old woman who was admitted with 2 days history of weakness mostly on the right side and dragging her foot and difficulty speaking. When I asked her this morning way she came to hospital she did not provide that history stating that she was not feeling well but otherwise she did not have any particular complaints. There was no complaint of any headache nausea vomiting which change in vision or change in speech. Review of Systems Review of Systems: No recent cold of fever no trauma no seizure-like activity or change in medicine. Neurologic: Reports Abnormal speech present (slow, mildly slurred) [facility] Past Medical History Medical History (Updated 07/24/20 @ 11:53 by Nasima Duke MD) CVA (cerebral vascular accident) Dementia Hypertension Family History Family History (Updated 05/29/20 @ 09:47 by Radha Lozano ON LICENSE OF [facility]) Father No problems noted. Mother No problems noted. Surgical History Surgical History History of cholecystectomy History of nephrolithotomy with removal of calculi Social History Social History Household Members: Spouse Housing: House Do you presently have visiting nurse or other home services: Yes Alcohol intake: unknown Smoking Status: Never smoker Smoked in Last 30 Days: No Use of substances other than those prescribed or required for medical reasons: No Currently Displaying Signs/Symptoms of Drug Intoxication Withdrawal: No Have you been hit, kicked, punched, or otherwise hurt by someone within the past year? If so, by whom?: No Do you feel safe in your current relationship?: Yes Is there a partner from a previous relationship who is making you feel unsafe now?: No Are you made to feel afraid or neglected: No Advance Directives: No Advance Directives Information Provided: Yes Do you have thoughts of harming others: None Do you have a plan to hurt others: No Plan Recently lost weight without trying: No service: No Current occupational status: retired Meds Allergies Allergy/AdvReac Type Severity Reaction Status Date / Time egg [EGG] Allergy Unknown UNKNOWN Verified 05/29/20 09:45 STREPTOMYCES ANTIBIOTICUS Allergy Unknown UNKNOWN Uncoded 05/22/20 16:39 DRVD Home Medications Medication Instructions Recorded Confirmed Type atorvastatin 1 tab PO DAILY 05/22/20 07/23/20 History Physical Exam Vital Signs: Vital Signs: Last Vital Signs Temp 97.4 F 07/24/20 11:41 Pulse 82 07/24/20 11:41 Resp 18 07/24/20 11:41 BP 136/64 07/24/20 11:41 Pulse Ox 96 07/24/20 11:41 Body Mass Index 28.0 He was alert and awake with normal spontaneity of speech fluency comprehension and affect. Face was symmetrical. Visual roy are full to threat. There was no pronator drift. Deep tendon reflexes were absent with flexor plantars. Speech was normal. Neuro: Speech: Abnormal speech present (slow, mildly slurred) Results Labs CBC & Chem 7: 07/24/20 05:51 07/24/20 05:51 Labs: Short CBC 07/23/20 07/24/20 Range/Units 11:37 05:51 WBC 8.3 9.2 (4.8-10.8) X10*3/uL Hgb 13.1 13.4 (12.0-16.0) g/dl Hct 40.5 41.5 (37-47) % Plt Count 322 343 (160-400) X10*3/uL BMP 07/23/20 07/24/20 11:37 05:51 Sodium 141 141 Potassium 4.6 D 4.1 Chloride 109 H 106 Carbon Dioxide 24 23 BUN 17 H 14 Creatinine 0.79 0.73 Calcium 9.0 9.1 Liver Function 07/23/20 Range/Units 11:37 Total Bilirubin 0.5 (0.0-1.0) mg/dL Direct Bilirubin 0.2 (0.0-0.5) mg/dL AST 21 (5-31) U/L ALT 15 (0-31) U/L Alkaline Phosphatase 66 D (39-117) U/L Albumin 4.2 (3.5-5.0) g/dL Urine 07/23/20 Range/Units 12:12 Urine Color STRAW Urine Appearance CLOUDY Urine pH 5.5 (5.0-8.0) Ur Specific [place] 1.020 (1.005-1.025) Urine Protein TRACE (NEG-TRACE) MG/DL Urine Glucose (UA) NEG (NEG) MG/DL Assessment and Plan (1) 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 She was diagnosed with an acute left early radiata/frontal cortical area infarct. She had a previous left cerebellar infarct and significant microangiopathic changes related to hypertension. Managed allergy here is on treated hypertension. Recommendations are as follows: 1. Aspirin 81 mg daily 2. Plavix 75 mg daily 3. Statin 4. Blood pressure control 5. CTA of brain and neck and 6. Echocardiogram to make sure there was no sign of atrial fibrillation
--- NOTE | 2020-07-24 11:58 | HO.PM.IMPN ---
Subjective Subjective Date of Service: 07/24/20 Interval History: the patient was seen and evaluated this morning Laying in bed, feels comfortable, complaining of weakness in the right lower extremity that got worse Speech is better this morning and I was able to understand much more than yesterday Denies any fever, chills or shortness of breath or chest pain No reported other overnight events. Systemic review: No fever, chills or weakness No chest pain, palpitation No shortness of breath or coughing No abdominal pain, nausea or vomiting No urinary symptoms No any rash or wounds Physical Exam Vital Signs: Vital Signs: Last Vital Signs Temp 97.4 F 07/24/20 11:41 Pulse 82 07/24/20 11:41 Resp 18 07/24/20 11:41 BP 136/64 07/24/20 11:41 Pulse Ox 96 07/24/20 11:41 Body Mass Index 28.0 Constitutional : Alert, oriented, not in distress Neck : Normal inspection, Supple Cardiovascular : RRR, S1 S2, no lower extremity edema Respiratory : Good bilateral air entry, no crackles, wheezes or rhonchi Gastrointestinal: soft, lax, Normal bowel sounds, Non tender Skin : Warm/Dry, No rash Neurological : Alert & oriented x3, right lower extremity weakness +4 to +5 with normal sensation, right upper extremity weakness +3 [place], cranial nerves within normal. Abnormal gait with unsteadiness. Objective Data Current Medications Generic Name Dose Route Start Last Admin Trade Name Freq PRN Reason Stop Dose Admin Acetaminophen 650 mg 07/23/20 15:44 07/24/20 09:59 Acetaminophen 325 Mg Tablet PO 650 mg Q6H PRN Administration Pain, Mild (Pain Scale 1-3) Amlodipine Besylate 10 mg 07/23/20 22:50 07/24/20 09:01 Amlodipine Besylate 5 Mg Tablet PO 10 mg DAILY MARIANA Administration Protocol Aspirin 81 mg 07/24/20 09:00 07/24/20 09:01 Aspirin Enteric Coated 81 Mg Tablet. PO 81 mg DAILY MARIANA Administration Atorvastatin Calcium 80 mg 07/23/20 21:00 07/23/20 20:36 Atorvastatin Calcium 80 Mg Tablet PO 80 mg BEDTIME MARIANA Administration Enoxaparin Sodium 40 mg 07/23/20 18:00 07/23/20 16:59 Enoxaparin Sodium 40 Mg/0.4 Ml Syringe SUBCUT 40 mg Q24H MARIANA Administration Metoprolol Succinate 25 mg 07/23/20 23:00 07/24/20 09:01 Metoprolol Succinate Er 25 Mg Tab.Er.24h PO 25 mg DAILY MARIANA Administration Protocol Pharmacy Consult 1 each 07/23/20 13:14 Consult Rx Perform Med Rec MISCELLANE ONCE PRN Consult order Sodium Chloride 3 ml 07/23/20 16:00 07/24/20 09:01 0.9 % Sodium Chloride Flush 3 Ml Syringe IVFLUSH 3 ml QSHIFT MARIANA Administration Labs CBC & Chem 7: 07/24/20 05:51 07/24/20 05:51 Assessment and Plan (1) Right sided weakness: Status: Acute (2) CVA (cerebral vascular accident): Status: Acute (3) Hypertension: Status: Acute Assessment and Plan: An 84 years old lady with past medical history of hypertension, HLD who presents to the hospital with reported right-sided weakness. Acute stroke Right-sided weakness, Slurred speech CT of the head negative for any acute findings MRI of the brain consistent with Acute infarct of the posterior left early radiata extending to the left precentral gyrus. To check carotid ultrasound Continue baby aspirin Continue atorvastatin 80 mg at bedtime Pending Neurology evaluation PT OT evaluation Hypertension Continue amlodipine and metoprolol DVT PPX Lovenox
--- NOTE | 2020-07-24 15:09 | MHC.CM.PN ---
Attempted to contact Pts for DP. no cpability of leaving a VM. Patient was informed that 2 STRs are following her for DC. She may have options. Carotid US is being performed this afternoon.
--- NOTE | 2020-07-24 15:44 | CA_ITS ---
Transthoracic Echocardiogram Patient (Last, First, Middle): Tatiana Gillespie E Gender: Female Date of : 1935 Age: 84 Procedure Date: 07/24/2020 Procedure Type: Transthoracic Echocardiogram [place] [facility] [place]: 152.4 cm Weight: 64.86 kg BSA: 1.62 m2 Heart Rate: bpm BP: 169 / 65 mmHg Rate Manager: Referring MD: Deshaun Rios MD Symptoms: evaluation of stroke Study Quality: Technically Difficult ECG Rhythm: Sinus Conclusions: - The left ventricular systolic function is normal. The visually estimated ejection fraction is between 60-65%. - No obvious valvular pathology seen on this study. Findings Left Ventricle Normal left ventricular cavity size. There is moderately increased left ventricular wall thickness. The left ventricular systolic function is normal. The visually estimated ejection fraction is between 60-65%. There is no evidence of regional wall motion abnormalities. E/E prime ratio is between 8 and 15 consistent with indeterminate filling pressures. Evidence suggests grade I (mild) diastolic dysfunction. Right Ventricle Normal right ventricular cavity size and systolic function. Atria The left atrium is normal in size. The right atrium is normal in size. Aortic Valve The aortic valve was not well visualized. There is no aortic valve stenosis. There is no aortic valve regurgitation. Mitral Valve There is mild mitral annular calcification. There is trace mitral valve regurgitation. There is no mitral valve stenosis. Pulmonic Valve The pulmonic valve was not well visualized. Tricuspid Valve Normal tricuspid valve structure. There is trace tricuspid valve regurgitation. The pulmonary artery systolic pressure is normal. Great Vessels The aortic annulus, sinuses of valsalva, and asc aorta are normal in size. Venous The inferior vena cava is normal in size and collapses greater than 50% with inspiration. Pericardium/Pleural There is no evidence of pericardial effusion. Prior Study Comparison No significant change compared to prior study dated: 09/08/2016. Recommendations, Care & Conclusions No obvious valvular pathology seen on this study. Measurements 2D Linear Measurements IVSd: 1.45 0.6-0.9/0.6-1.0 cm LVIDd: 3.09 3.9-5.3/4.2-5.9 cm LVIDd Index: 1.91 2.4-3.2/2.2-3.1 cm/m2 LVIDs: 2.07 2.0-3.6 cm LVPWd: 1.38 0.7-1.1 cm Ao Root: 2.80 2.1-3.5 cm LA Diam: 2.80 2.7-3.8/3.0-4.0 cm LAIDs Index: 1.73 1.5-2.3 cm/m2 LV Mass: 185.09 67-162/88-224 g LV Mass Index: 114.25 43-95/49-115 g/m2 LVOT Diam: 1.90 3.0+(-)1.3 cm Mitral Valve MV Pk E: 0.51 MV PK A: 1.12 MV Decel Time: 165.00 E/A: 0.50 E'Lateral: 4.25 E'Medial: 5.03 E/E' Med: 10.20 E/E' Lat: 12.10 PHT: 48.00 MVA PHT: 4.58 Decel [place]: 3.11 Aortic Valve AoV Pk Jordan: 1.25 AoV Mn Jordan: 0.85 AoV VTI: 0.32 AoV Pk Grad: 6.00 Aov Mn Grad: 4.00 SUNIL Cont.VTI: 1.86 LVOT LVOT Pk [place]: 0.82 LVOT Mn [place]: 0.47 LVOT VTI: 0.21 LVOT Pk Grad: 3.00 LVOT Mn Grad: 1.00 LVOT Diam: 1.90 LVOT Area: 2.84 Diastolic Function MV Pk E: 0.51 MV Pk A: 1.12 E/A: 0.50 E'Medial: 5.03 E/E' Med: 10.20 E' Laterial: 4.25 E/E' Lat: 12.10 Tricuspid Valve TR Pk Jordan: 2.07 TR Pk Grad: 17.00 RA Press: 3.00 RVSP: 20.00 Great Vessels Aorta Ao Root-2D: 2.80 2.0-3.7 cm Pulmonary Valve PV Pk Jordan: 1.11 Peak PV Grad: 5.00 Updated in Other Vendor System with Status of Final Nicho Lopez MD electronically signed on 07/24/2020 5:06:37 PM with status of Final
[2020-07-24] MEDS: Enoxaparin Sodium 40 MG/0.4 ML SYRINGE SUBCUT (16:52)
[2020-07-24] MEDS: Atorvastatin Calcium 80 MG TABLET PO (20:17)
[2020-07-25] VITALS (9 sets, daily range): BP systolic 148–169; BP diastolic 67–78; PULSE 89–110; RESP 18–20; TEMP 36.4–36.9; O2SAT 92–100
--- NOTE | 2020-07-25 | CT_ITS ---
EXAMINATION: CT ANGIOGRAM NECK WITH CONTRAST CLINICAL INFORMATION: Carotid stenosis with stroke. COMPARISON: Brain MRI 07/23/2020. TECHNIQUE: Test bolus sequences followed by intravenous administration 70 mL of Omnipaque 350. Helical imaging was performed in the axial plane from the thoracic inlet to the skull base. The data was processed at the invasive cardiovascular technologist workstation for generation of MIP sequences. Angled MIPs and volume rendered reformatted images were also generated at an offline 3D workstation. Stenoses are assessed in accordance with NASCET criteria unless otherwise indicated. DLP: 299 mGy-cm FINDINGS: NECK CTA: The aortic arch is patent with mild atheromatous changes noted. The great vessel origins are patent. The bilateral common carotid arteries are patent. Atheromatous changes are seen at both carotid bifurcations extending to the proximal internal carotid arteries and results in approximately 51% stenosis. There is no significant stenosis of the proximal left internal carotid artery. The bilateral vertebral arteries are patent throughout their cervical course. PARTIALLY IMAGED HEAD CTA: Significant atheromatous changes are seen along the intradural right vertebral artery where there is focal high-grade stenosis. The right vertebral artery terminates as a PICA. There is no high-grade stenosis along the intradural left vertebral artery. There is high-grade stenosis involving the distal right M1 MCA segment as well as high-grade stenosis along the proximal left M2 MCA segment. NON-VASCULAR FINDINGS: The intracranial structures are not well defined no gross hemorrhage is seen. Significant encephalomalacic changes are noted in the left cerebellum. Several small thyroid nodules are noted. There is no consolidation within the upper lungs. Multilevel degenerative changes are seen within the spine. CT/CT angio neck IMPRESSION: There is approximately 51% stenosis of the proximal right internal carotid artery related to atheromatous plaque however there is motion artifact within this region which somewhat obscures the vessel. No additional significant stenosis is suspected within the neck. High-grade stenosis is seen within the intracranial anterior and posterior circulations.
[2020-07-25] MEDS: traZODone HCL 25 MG HALFTAB PO (03:35)
--- NOTE | 2020-07-25 04:48 | PC.NURSE ---
Pt has history of dementia, having increased confusion and hallucinations throughout the night. Restless at times. HR up to 120s sinus on tele. Dr Clinton notified. Trazodone ordered and administered to help promote sleep. Pt now resting in bed, alert to person, vague to place, disoriented to time and situation. High fall risk measures in place, telesitter placed in room for safety.
[2020-07-25 07:23] LABS: Anion Gap 18 (12-20); Blood Urea Nitrogen 26 mg/dL (9-16); Carbon Dioxide 22 mmol/L (22-29); Chloride 104 mmol/L (96-108); Creatinine Clr Calc Pharmacy 36.2; Estimated Glomerular Filt Rate 54; Glucose Random 105 mg/dL (60-115); Potassium 4.2 mmol/l (3.3-5.1); Sodium 140 mmol/L (135-145)
[2020-07-25] MEDS: 0.9 % Sodium Chloride Flush 3 ML SYRINGE IVFLUSH ×3 (09:39→21:06)
[2020-07-25] MEDS: Aspirin Enteric Coated 81 MG TABLET.DR PO (09:39)
[2020-07-25] MEDS: amLODIPine Besylate 5 MG TABLET 10 MG PO (09:39)
[2020-07-25] MEDS: Metoprolol Succinate ER 25 MG TAB.ER.24H PO ×2 (09:39→10:59)
[2020-07-25] MEDS: Clopidogrel Bisulfate 75 MG TABLET PO (10:59)
--- NOTE | 2020-07-25 12:34 | PM.EVENT ---
Event Note Date of Service: 07/25/20 Event Note: Full consult dictated. Pt. started on ASA and plavix. Will await CTA. Thank you very much
--- NOTE | 2020-07-25 13:16 | CONS_ITS ---
DATE OF SERVICE: 07/25/2020 REASON FOR CONSULTATION: Carotid stenosis with stroke. HISTORY OF PRESENT ILLNESS: 84-year-old female, presented with acute onset right upper and lower extremity pain. She noticed that she was dragging her right foot and her right hand was weak and numb. This had been going on for 3 or 4 days and she was subsequently admitted for treatment and evaluation of stroke. She now presents to us for vascular evaluation. PAST MEDICAL HISTORY: Significant for hypertension, dementia, CVA. PAST SURGICAL HISTORY: Includes cholecystectomy and nephrolithotomy with removal of calculi. MEDICATIONS: Medication list was reviewed per nursing MAR. ALLERGIES: EGGS AND STREPTOMYCIN ANTIBIOTICS. FAMILY HISTORY: No history of advanced coronary artery disease or peripheral vascular disease. SOCIAL HISTORY: Nonsmoker. Nondrinker. REVIEW OF SYSTEMS: 13-point review was performed. At the current time, denies any headache, dizziness, nausea, vomiting, diarrhea, or shortness of breath. Rest of 13-point review was essentially negative. She does continue to notice right arm and leg weakness, but she notes that it is improved since admission. PHYSICAL EXAMINATION: GENERAL: Afebrile. VITAL SIGNS: Stable. HEAD AND NECK: Demonstrates no bruits. CHEST: Moving air bilaterally. CARDIAC: Positive S1 and S2. ABDOMEN: Soft. EXTREMITIES: Upper extremities have good radial and ulnar pulses. Lower extremities warm with good capillary refill. NEUROLOGIC: II through XII grossly intact. Speech was normal. She does have left upper extremity and left lower extremity 5/5 strength. The right upper extremity 4/5 and right lower extremity 3/5 strength. PSYCH: Mood and affect appear within normal limits. IMAGING STUDIES: Head CT on 07/23 was essentially negative, but on followup brain MRI, we do noticed acute infarct of the posterior left early radiata extending into the left precentral gyrus. Then, on carotid study, we noticed that the carotid study demonstrated right side 50% to 79% and left side 0% to 49% stenosis. IMPRESSION: Stroke. It is unclear if this was related to her carotid stenosis. She does have a left-sided stroke with right-sided weakness. This does not correspond to the carotid ultrasound. I have ordered a CT angiogram of the neck to better elucidate this. In addition, she has already been started on dual anti-platelet therapy regimen. We will follow up with her after testing. Thank you for allowing us to assist in her care. MD ALFREDO Valencia/JASSI / [phone]
--- NOTE | 2020-07-25 13:58 | MHC.CM.PN ---
CM spoke with patient's Yunior who is HCP, instructed PT is recommending rehab. wishes patient to stay in [place], referrals Made to [facility], [facility], [facility] and [facility]. Yunior does not have preference for one over the other. Referrals made via allscripts. CM will continue to follow patient for discharge needs.
[2020-07-25] MEDS: iohexoL 350 MG/ML 100 ML INFUS..BTL 70 ML IV (15:50)
--- NOTE | 2020-07-25 17:29 | HO.PM.IMPN ---
Subjective Subjective Date of Service: 07/25/20 <DELORIS Alcala - Last Filed: 07/25/20 17:42> 08/13/20 <Beulah Traore MD - Last Filed: 08/13/20 16:46> Interval History: Admitted with right-sided weakness. MRI shows acute CVA No events overnight <DELORIS Alcala - Last Filed: 07/25/20 17:42> Review of Systems Review of Systems: Yes all other systems are reviewed and are negative <DELORIS Alcala - Last Filed: 07/25/20 17:42> Constitutional Constitutional: Denies chills and Denies fever(s) <DELORIS Alcala - Last Filed: 07/25/20 17:42> Cardiovascular Cardiovascular: Denies chest pain <DELORIS Alcala - Last Filed: 07/25/20 17:42> Respiratory Respiratory: Denies cough <DELORIS Alcala - Last Filed: 07/25/20 17:42> Gastrointestinal Gastrointestinal: Denies abdominal pain <DELORIS Alcala - Last Filed: 07/25/20 17:42> Physical Exam Vital Signs: Vital Signs: Last Vital Signs Temp 98.1 F 07/25/20 16:00 Pulse 109 H 07/25/20 16:00 Resp 18 07/25/20 16:00 BP 169/78 H 07/25/20 16:00 Pulse Ox 96 07/25/20 16:00 Body Mass Index 28.0 <DELORIS Alcala - Last Filed: 07/25/20 17:42> Const: Nutritional Appearance: well nourished <DELORIS Alcala - Last Filed: 07/25/20 17:42> HENMT: Head: Yes normocephalic and Yes atraumatic <DELORIS Alcala - Last Filed: 07/25/20 17:42> Eyes: Sclerae: sclerae normal <DELORIS Alcala - Last Filed: 07/25/20 17:42> Chest: Chest palpation & inspection: normal inspection of the chest <DELORIS Alcala - Last Filed: 07/25/20 17:42> Resp: Effort & Inspection: normal respiratory effort and no respiratory distress <DELORIS Alcala Last Filed: 07/25/20 17:42> Auscultation: clear to auscultation bilaterally <DELORIS Alcala Last Filed: 07/25/20 17:42> Cardio: Rate: regular rate <DELORIS Alcala Last Filed: 07/25/20 17:42> Rhythm: regular rhythm <DELORIS Alcala Last Filed: 07/25/20 17:42> GI: Palpation (GI): Soft to palpation and nontender <DELORIS Alcala Last Filed: 07/25/20 17:42> Skin: General skin exam: no rashes or lesions noted <DELORIS Alcala Last Filed: 07/25/20 17:42> Neuro: Cranial nerves: Yes CN's II-XII intact bilaterally and Yes Bilaterally intact EOM present <DELORIS Alcala Last Filed: 07/25/20 17:42> Extrem: General: Yes normal to inspection <DELORIS Alcala Last Filed: 07/25/20 17:42> Objective Data Current Medications Generic Name Dose Route Start Last Admin Trade Name Ovidioq PRN Reason Stop Dose Admin Acetaminophen 650 mg 07/23/20 15:44 07/24/20 09:59 Acetaminophen 325 Mg Tablet PO 650 mg Q6H PRN Administration Pain, Mild (Pain Scale 1-3) Amlodipine Besylate 10 mg 07/23/20 22:50 07/25/20 09:39 Amlodipine Besylate 5 Mg Tablet PO 10 mg DAILY MARIANA Administration Protocol Aspirin 81 mg 07/24/20 09:00 07/25/20 09:39 Aspirin Enteric Coated 81 Mg Tablet.Dr PO 81 mg DAILY MARIANA Administration Atorvastatin Calcium 80 mg 07/23/20 21:00 07/24/20 20:17 Atorvastatin Calcium 80 Mg Tablet PO 80 mg BEDTIME MARIANA Administration Clopidogrel Bisulfate 75 mg 07/25/20 10:45 07/25/20 10:59 Clopidogrel Bisulfate 75 Mg Tablet PO 75 mg DAILY MARIANA Administration Enoxaparin Sodium 40 mg 07/23/20 18:00 07/24/20 16:52 Enoxaparin Sodium 40 Mg/0.4 Ml Syringe SUBCUT 40 mg Q24H MARIANA Administration Metoprolol Succinate 50 mg 07/26/20 09:00 Metoprolol Succinate Er 50 Mg Tab.Er.24h PO DAILY PENDING SALE TO [facility] Protocol Pharmacy Consult 1 each 07/23/20 13:14 Consult Rx Perform Med Rec MISCELLANE ONCE PRN Consult order Sodium Chloride 3 ml 07/23/20 16:00 07/25/20 09:39 0.9 % Sodium Chloride Flush 3 Ml Syringe IVFLUSH 3 ml QSHIFT MARIANA Administration <DELORIS Alcala - Last Filed: 07/25/20 17:42> Labs CBC & Chem 7: : 07/24/20 05:51 07/25/20 05:38 <DELORIS Alcala - Last Filed: 07/25/20 17:42> Microbiology Microbiology Results: Microbiology 07/23/20 00:00 Urine clean catch - Clean Catch Midstream Urine Culture - Final <DELORIS Alcala - Last Filed: 07/25/20 17:42> Assessment and Plan (1) CVA (cerebral vascular accident): (2) Hypertension: Assessment and Plan: An 84 year old female with past medical history of hypertension, HLD who presents to the hospital with reported right-sided weakness found to have acute stroke Acute stroke Right-sided weakness, Slurred speech. Symptoms present for 2 days prior to arrival therefore not a candidate for tPA CT of the head negative for any acute findings MRI of the brain consistent with Acute infarct of the posterior left early radiata extending to the left precentral gyrus. carotid ultrasound shows moderate right ICA stenosis, left ECA stenosis and left subclavian stenosis - vascular consult obtained, ordered head/neck cta ECHO EF 60-60% with no valvular pathology seen Neurology recommend aspirin Plavix, statin PT recommends short-term rehab Hypertension Bp running 160s with mild tachycardia Continue amlodipine Increase dose of toprol xl from 25 to 50 HLD continue statin DVT PPX Lovenox This case was discussed with Dr. Traore <DELORIS Alcala - Last Filed: 07/25/20 17:42>
[2020-07-25] MEDS: Enoxaparin Sodium 40 MG/0.4 ML SYRINGE SUBCUT (17:50)
[2020-07-25] MEDS: Atorvastatin Calcium 80 MG TABLET PO (21:06)
[2020-07-26 03:44] VITALS: BP 158/76; PULSE 103; RESP 20; TEMP 37; O2SAT 95
[2020-07-26 07:37] VITALS: BP 155/79; PULSE 111; RESP 20; TEMP 36.1; O2SAT 97
--- NOTE | 2020-07-26 08:58 | HO.VASCPN ---
Subjective Subjective Date of Service: 07/26/20 Patient reports: no new complaints and feels better Interval history: Patient for follow-up regarding carotid stenosis. She has had no interval events overnight. She has undergone S CTA of the neck. Of note on admission it was her right upper and lower extremity that demonstrated some weakness. She now presents for follow-up. Physical Exam Vital Signs: Vital Signs: Last Vital Signs Temp 96.9 F 07/26/20 07:37 Pulse 111 H 07/26/20 07:37 Resp 20 07/26/20 07:37 BP 155/79 H 07/26/20 07:37 Pulse Ox 97 07/26/20 07:37 Body Mass Index 28.0 Const: General: cooperative, healthy appearing and no acute distress Orientation/consciousness: oriented to person, oriented to place and oriented to time HENMT: Head: Yes normal to inspection Neck: Carotids: no bruits Chest: Chest palpation & inspection: normal inspection of the chest Resp: Effort & Inspection: normal respiratory effort and able to speak in complete sentences Auscultation: clear to auscultation bilaterally Cardio: Rate: regular rate Heart sounds: S1 normal heart sound present and S2 normal heart sound present GI: Inspection: Yes normal to inspection Skin: General skin exam: no rashes or lesions noted Wounds: no wounds Neuro: General: oriented to person, oriented to place, oriented to time and CN's II-XI intact bilaterally Extrem: General: Yes normal to inspection, Yes full ROM and Yes no clubbing, cyanosis or edema Psych: Appearance: grossly normal and well kempt Speech and movement: Normal speech and movement present Affect: normal affect Progress Note: A&P Assessment and plan (1) Carotid stenosis, bilateral: Status: Acute Assessment and Plan: Patient has undergone CT angiogram. I independently reviewed the images and report which notes the right side is 51% stenosis and left side has no significant disease. This is discordant with physical exam findings and MRI findings of left-sided stroke. I do not believe the carotids are the source of her problems. I have discussed the findings with the patient, and informed her that no surgery was required. Thank you for allowing me to participate in her care. If there are any questions or concerns please do not hesitate to contact me. The patient had an opportunity to ask questions regarding the treatment plan. All questions were answered. Imaging studies, laboratory studies and physical exam results were discussed and reviewed in detail. No major barriers to understanding were identified. The patient expressed understanding and agreement with the above treatment plan. The patient is aware they should contact our office by phone for worsening of the current condition or the appearance of new symptoms. Thank you for allowing me to participate in the vascular care of this patient. If you have any questions or concerns regarding the treatment for the above condition please do not hesitate to contact me. The office telephone contact is [phone]. This note is constructed using voice recognition software. While every effort has been made to ensure accuracy, sludge filtration attendant errors may have been included. Thank you for allowing me to participate in the care of your patient. Yours sincerely, Stephane Thomas MD, FACS, R.P.V.I. Fall Risk Details Current Medications: Current Medications Generic Name Dose Route Start Last Admin Trade Name Freq PRN Reason Stop Dose Admin Acetaminophen 650 mg 07/23/20 15:44 07/24/20 09:59 Acetaminophen 325 Mg Tablet PO 650 mg Q6H PRN Administration Pain, Mild (Pain Scale 1-3) Amlodipine Besylate 10 mg 07/23/20 22:50 07/25/20 09:39 Amlodipine Besylate 5 Mg Tablet PO 10 mg DAILY MARIANA Administration Protocol Aspirin 81 mg 07/24/20 09:00 07/25/20 09:39 Aspirin Enteric Coated 81 Mg Tablet.Dr PO 81 mg DAILY MARIANA Administration Atorvastatin Calcium 80 mg 07/23/20 21:00 07/25/20 21:06 Atorvastatin Calcium 80 Mg Tablet PO 80 mg BEDTIME MARIANA Administration Clopidogrel Bisulfate 75 mg 07/25/20 10:45 07/25/20 10:59 Clopidogrel Bisulfate 75 Mg Tablet PO 75 mg DAILY MARIANA Administration Enoxaparin Sodium 40 mg 07/23/20 18:00 07/25/20 17:50 Enoxaparin Sodium 40 Mg/0.4 Ml Syringe SUBCUT 40 mg Q24H MARIANA Administration Metoprolol Succinate 50 mg 07/26/20 09:00 Metoprolol Succinate Er 50 Mg Tab.Er.24h PO DAILY MARIANA Protocol Pharmacy Consult 1 each 07/23/20 13:14 Consult Rx Perform Med Rec MISCELLANE ONCE PRN Consult order Sodium Chloride 3 ml 07/23/20 16:00 07/25/20 21:06 0.9 % Sodium Chloride Flush 3 Ml Syringe IVFLUSH 3 ml QSHIFT MARIANA Administration Time Spent With Patient Time: Total time spent is greater than 50% in coordination of care (as documented) at patient's floor/unit and/or counseling patient: Time with patient: 25 - 35 minutes
[2020-07-26] MEDS: 0.9 % Sodium Chloride Flush 3 ML SYRINGE IVFLUSH (09:05)
[2020-07-26] MEDS: Aspirin Enteric Coated 81 MG TABLET.DR PO (09:07)
[2020-07-26] MEDS: amLODIPine Besylate 5 MG TABLET 10 MG PO (09:07)
[2020-07-26] MEDS: Metoprolol Succinate ER 50 MG TAB.ER.24H PO (09:08)
[2020-07-26] MEDS: Clopidogrel Bisulfate 75 MG TABLET PO (09:08)
[2020-07-26 11:14] VITALS: BP 170/95; PULSE 102; RESP 20; TEMP 36.3; O2SAT 97
[2020-07-26 12:04] VITALS: BP 158/76
--- NOTE | 2020-07-26 12:30 | P.DS_ITS ---
DS: Providers Provider Date of admission: 07/23/20 13:57 Primary care physician: Unknown Physician Consults: 07/23/20 15:44 Consult to Neurology Routine Consulting Provider: [facility] Reason for consultation: Evaluation for right sided weakness and slurred speech 07/25/20 10:41 Consult to Vascular Surgery Routine Consulting Provider: Stephane Thomas Reason for consultation: stroke, carotid stenosis Has provider been notified: No DS: Diagnosis Discharge Diagnosis (1) Carotid stenosis, bilateral: Status: Acute (2) Acute ischemic stroke: Status: Acute (3) 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: Status: Acute (4) CVA (cerebral vascular accident): Status: Acute (5) Right sided weakness: Status: Acute (6) Hypertension: Status: Acute (7) Cerebrovascular accident: Status: Acute DS: Medications Discharge Medications Home Medications: Previous Rx's Medication Instructions Recorded amlodipine 5 mg tablet 10 mg PO DAILY 30 Days #60 tab 06/20/20 miscellaneous medical supply #1 ea 07/09/20 blood pressure monitor #1 ea 07/19/20 aspirin 81 mg PO DAILY #30 tab 07/26/20 atorvastatin 80 mg PO BEDTIME #30 tab 07/26/20 clopidogrel 75 mg PO DAILY #30 tab 07/26/20 metoprolol succinate 50 mg PO DAILY #30 tab 07/26/20 DS: Summary Hospital Course Hospital Course: Admission note HPI An 84 years old lady with past medical history of hypertension, HLD who presents to the hospital with reported right-sided weakness. The patient reports feeling around her baseline until this weekend when she noticed at walking with a walker isn't normal as before. She noticed that she is dragging her right foot and she is weaker on the right side. She is right- handed and her right hand was acting of. Her symptoms did not improve over the last 2 days and continue to feel weaker. She also reports slurred speech which seems to be new since May when she was admitted to the hospital. Unclear if it is related to this new event of right- sided weakness. In the emergency CT scan of head was negative for any acute findings Admitted for further evaluation and treatment... Hospital course The patient was admitted to the hospital and evaluated by MRI of the brain which was consistent with diagnosis of Acute infarct of the posterior left early radiata extending to the left precentral gyrus. carotid ultrasound shows moderate right ICA stenosis, left ECA stenosis and left subclavian stenosis . Head and neck CTA showed 51% stenosis in the right ICA. Evaluated by vascular surgery who recommended medical treatment only with no need for intervention at this point. Echo showed EF of 60-65% with no valvular pathology. Evaluated by Neurology who recommended medical treatment with aspirin, Plavix and higher dose of atorvastatin. She was seen by Physical therapy who recommended short-term rehab. Her blood pressure was noted to be elevated and her metoprolol dose increased from 25-50. Will need to continue monitor her blood pressure after discharge. Time Spent with Patient Time attestation: Total time spent providing and/or coordinating discharge services: Quality: Stroke Pt Provided Written Stroke Discharge Instructions: Patient given written information Physical Exam Vital Signs: Vital Signs: Last Vital Signs Temp 97.4 F 07/26/20 11:14 Pulse 102 H 07/26/20 11:14 Resp 20 07/26/20 11:14 BP 158/76 H 07/26/20 12:04 Pulse Ox 97 07/26/20 11:14 Body Mass Index 28.0 Constitutional : Alert, oriented, not in distress Neck : Normal inspection, Supple Cardiovascular : RRR, S1 S2, no lower extremity edema Respiratory : Good bilateral air entry, no crackles, wheezes or rhonchi Gastrointestinal: soft, lax, Normal bowel sounds, Non tender Skin : Warm/Dry, No rash Neurological : Alert & oriented x3, right lower extremity weakness +4 to +5 with normal sensation, right upper extremity weakness +3 power, cranial nerves within normal. Abnormal gait with unsteadiness. Abnormal speech with mild slurry. DS: Data Data Completed and Pending Labs on day of discharge: 07/23/20 MR head/brain wo con Stat 07/23/20 00:00 Urine Culture Routine 07/23/20 10:35 ECG 12 lead EKG Stat EKG Documentation DIRECTED 07/23/20 10:36 CT head/brain wo con Stat XR chest 1V Stat 07/23/20 10:57 Glucose, Whole Blood Routine 07/23/20 11:37 B Type Natriuretic Peptide Stat Basic Metabolic Panel Stat Complete Blood Count Auto Diff Stat Liver Panel Stat Magnesium Stat Partial Thromboplastin Time Stat Prothrombin Time INR Stat Troponin-I High Sensitivity Stat 07/23/20 12:12 COVID-19 ID NOW (Lutz) Stat 07/23/20 13:03 Acetaminophen [Tylenol] 650 mg PO ONCE ONE 07/23/20 13:04 Aspirin Enteric Coated [Ecotrin] 81 mg PO ONCE ONE 07/23/20 13:43 Transfer Order Routine 07/23/20 15:44 Acetaminophen [Tylenol] 650 mg PO Q6H PRN 07/23/20 15:44 Ambulate QSHIFT WHILE AWAKE IV insert/maintain Q4HR Intake and Output QSHIFTE Vital Signs Q4HR 07/23/20 Lunch Low Sodium Diet 07/23/20 23:00 Metoprolol Succinate ER [Toprol XL] 25 mg PO DAILY 07/24/20 US carotid duplex BI Routine 07/24/20 05:51 Basic Metabolic Panel DAILY@0600 Complete Blood Count no Diff DAILY@0600 Lipid Panel Routine 07/24/20 09:00 Metoprolol Succinate ER [Toprol XL] DOSE mg PO DAILY 07/24/20 15:44 CA echo transthoracic complete Routine 07/25/20 CT angio neck Routine 07/25/20 03:14 traZODone HCL [Desyrel] 25 mg PO ONCE ONE 07/25/20 05:38 Basic Metabolic Panel DAILY@0600 07/25/20 10:44 Metoprolol Succinate ER [Toprol XL] 25 mg PO ONCE ONE 07/25/20 15:50 iohexoL 350 MG/ML [Omnipaque 350 MG/ML] 70 ml IV ONCE ONE Laboratory Last Values WBC 9.2 X10*3/uL (4.8-10.8) 07/24/20 05:51 RBC 4.26 X10*6/uL (4.20-5.50) 07/24/20 05:51 Hgb 13.4 g/dl (12.0-16.0) 07/24/20 05:51 Hct 41.5 % (37-47) 07/24/20 05:51 MCV 97.4 fL (80-98) 07/24/20 05:51 MCH 31.5 pg (27.0-33.0) 07/24/20 05:51 MCHC 32.3 g/dl (31.0-35.0) 07/24/20 05:51 RDW 13.7 % (11.0-16.0) 07/24/20 05:51 Plt Count 343 X10*3/uL (160-400) 07/24/20 05:51 MPV 9.4 fL (9.4-12.3) 07/24/20 05:51 Immature Gran % (Auto) 0.0 % (0.0-0.4) 07/23/20 11:37 Neut % (Auto) 70.9 % (45-73) 07/23/20 11:37 Lymph % (Auto) 19.6 % (20-40) L 07/23/20 11:37 Gilliam % (Auto) 6.7 % (2-11) 07/23/20 11:37 Eos % (Auto) 1.6 % (0-4) 07/23/20 11:37 Baso % (Auto) 1.2 % (0-2) 07/23/20 11:37 Lymph # (Auto) 1.6 X10*3/uL (1.2-4.9) 07/23/20 11:37 Gilliam # (Auto) 0.6 X10*3/uL (0.1-1.2) 07/23/20 11:37 Eos # (Auto) 0.1 X10*3/uL (0.0-0.4) 07/23/20 11:37 Baso # (Auto) 0.1 X10*3/uL (0.0-0.2) 07/23/20 11:37 Abs Immat Gran (auto) 0.00 X10*3/uL (0.00-0.03) 07/23/20 11:37 Absolute Neuts (auto) 5.9 X10*3/uL (2.0-8.3) 07/23/20 11:37 Absolute Nucleated RBC 0.000 X10*3/uL (0.0-0.012) 07/24/20 05:51 Nucleated RBC % (auto) 0.0 /100WBC (0.0-0.2) 07/24/20 05:51 PT 11.2 SEC (10.8-13.0) 07/23/20 11:37 INR 0.9 (0.9-1.1) 07/23/20 11:37 APTT 24.3 SEC (24.1-38.0) 07/23/20 11:37 Sodium 140 mmol/L (135-145) 07/25/20 05:38 Potassium 4.2 mmol/l (3.3-5.1) 07/25/20 05:38 Chloride 104 mmol/L (96-108) 07/25/20 05:38 Carbon Dioxide 22 mmol/L (22-29) 07/25/20 05:38 Anion Gap 18 (12-20) 07/25/20 05:38 BUN 26 mg/dL (9-16) H D 07/25/20 05:38 Creatinine 0.99 mg/dL (0.5-1.4) 07/25/20 05:38 Estim Creat Clear Calc 36.2 07/25/20 05:38 Estimated GFR 54 07/25/20 05:38 POC Glucose 92 mg/dL (60-115) 07/23/20 10:57 Random Glucose 105 mg/dL (60-115) 07/25/20 05:38 Calcium 9.0 mg/dL (8.4-10.2) 07/25/20 05:38 Magnesium 1.9 mg/dL (1.6-2.6) 07/23/20 11:37 Total Bilirubin 0.5 mg/dL (0.0-1.0) 07/23/20 11:37 Direct Bilirubin 0.2 mg/dL (0.0-0.5) 07/23/20 11:37 AST 21 U/L (5-31) 07/23/20 11:37 ALT 15 U/L (0-31) 07/23/20 11:37 Alkaline Phosphatase 66 U/L (39-117) D 07/23/20 11:37 Troponin I High Sens 6.8 ng/L (<3.5-17.0) 07/23/20 11:37 B-Natriuretic Peptide 76 pg/mL (<100) 07/23/20 11:37 Total Protein 7.2 g/dL (6.5-8.0) 07/23/20 11:37 Albumin 4.2 g/dL (3.5-5.0) 07/23/20 11:37 Triglycerides 194 mg/dL 07/24/20 05:51 Cholesterol 211 mg/dL 07/24/20 05:51 LDL Cholesterol, Calc 123 mg/dl 07/24/20 05:51 HDL Cholesterol 50 mg/dL 07/24/20 05:51 Urine Color STRAW 07/23/20 12:12 Urine Appearance CLOUDY 07/23/20 12:12 Urine pH 5.5 (5.0-8.0) 07/23/20 12:12 Ur Specific [place] 1.020 (1.005-1.025) 07/23/20 12:12 Urine Protein TRACE MG/DL (NEG-TRACE) 07/23/20 12:12 Urine Glucose (UA) NEG MG/DL (NEG) 07/23/20 12:12 Urine Ketones NEG MG/DL (NEG) 07/23/20 12:12 Urine Blood 2+ (NEG) H 07/23/20 12:12 Urine Nitrite NEG (NEG) 07/23/20 12:12 Ur Leukocyte Esterase 1+ (NEG) H 07/23/20 12:12 Urine RBC 5-9 /HPF (0) H 07/23/20 12:12 Urine WBC 1-4 /HPF (0-4) 07/23/20 12:12 Ur Squamous Epith Cells 1+ /LPF 07/23/20 12:12 Ur Renal Epithelial Cell TRACE /LPF 07/23/20 12:12 Urine Bacteria 1+ /LPF 07/23/20 12:12 COVID-19 (WEN) Negative (Negative) 07/23/20 12:12 COVID-19 Clin Com See Note 07/23/20 12:12 Discharge Plan Discharge Patient Disposition: Xfer SNF Referrals: Physician,Unknown [Primary Care Provider] - Discharge Medications: New clopidogrel 75 mg Tablet 75 mg PO DAILY Qty: 30 RF: 0 atorvastatin 80 mg Tablet 80 mg PO BEDTIME Qty: 30 RF: 0 aspirin 81 mg Tablet,Delayed Release (Dr/Ec) 81 mg PO DAILY Qty: 30 RF: 0 metoprolol succinate 50 mg Tablet Extended Release 24 Hr 50 mg PO DAILY Qty: 30 RF: 0 Continued amlodipine 5 mg tablet 10 mg PO DAILY 30 Days Qty: 60 RF: 3 (DME) miscellaneous medical supply Misc See Rx Instructions .ROUTE .MEDSUPPLY Qty: 1 RF: 0 (DME) blood pressure monitor Kit See Rx Instructions .ROUTE .MEDSUPPLY Qty: 1 RF: 0 Discontinued metoprolol succinate 25 mg tablet extended release 24 hr 25 mg PO DAILY 90 Days Qty: 90 RF: 1 atorvastatin 40 mg tablet 1 tab PO DAILY RF: 0 Discharge Orders: Discharge Order (Routine); Ordered 07/26/20 Ordered By: Deshaun Rios Diet: advance to usual diet Activity on Discharge: As tolerated Visit Report Forms: Patient Portal Discharge page Care Plan Goals: Read below Health Concerns: Read below Plan of Treatment: You have presented to the hospital for complaint of right-sided weakness and difficulty speaking. You were evaluated by brain images including CT scan, CTA and MRI which were consistent with a diagnosis of acute stroke. You were seen by neurologist Dr. Duke who recommended treatment with baby aspirin, Plavix and higher dose of statin. You were evaluated by physical therapy team who recommended short-term rehab. Your blood pressure was noticed to be elevated and remained few changes to your home medications. Start baby aspirin daily Start Plavix daily Increase metoprolol to 50 mg XL daily Increase atorvastatin to 80 mg daily Continue your physical therapy to follow-up with PCP after discharge
--- NOTE | 2020-07-26 13:04 | MHC.CM.PN ---
Patient will be discharging today to [facility] at 2pm via BLS transport. and nurse are aware.
== END 2020-07-26 14:16 | disposition skilled nursing facility (03) | DRG 65 ==
LOC: HO.ED 12:16 → HO.IMC 14:51
PROVIDERS: Physician Assistant; Admitting Provider Student in an Organized Health Care Education/Training Program; Emergency Provider Emergency Medicine; Visit Provider Student in an Organized Health Care Education/Training Program
DX: I63.212 Cerebral infarction due to unspecified occlusion or stenosis of left vertebral artery (principal); G81.91 Hemiplegia, unspecified affecting right dominant side; R47.81 Slurred speech; R29.706 NIHSS score 6; I10 Essential (primary) hypertension; Z86.73 Personal history of transient ischemic attack (TIA), and cerebral infarction without residual deficits; I65.23 Occlusion and stenosis of bilateral carotid arteries; Z20.828 Contact with and (suspected) exposure to other viral communicable diseases; Z87.442 Personal history of urinary calculi; Z79.02 Long term (current) use of antithrombotics/antiplatelets; Z79.82 Long term (current) use of aspirin; Z79.899 Other long term (current) drug therapy
CPT/HCPCS: 36415; 70450; 70498; 70551; 71045; 80048; 80061; 80076; 81001; 82947; 83735; 83880; 84484; 85025; 85027; 85610; 85730; 87086; 87635; 93005; 93306; 93880; 97162; 97166; 97530; 97535; 99285; J1650; Q9967

== ENCOUNTER 2020-07-30 06:30 | Outpatient (REF) | payer MEDICARE, SELFPAY ==
[2020-07-30 07:03] LABS: Hematocrit 39.1 % (37-47); Hemoglobin 12.8 g/dl (12.0-16.0); Mean Corpuscular HGB Conc 32.7 g/dl (31.0-35.0); Mean Corpuscular Hemoglobin 31.9 pg (27.0-33.0); Mean Corpuscular Volume 97.5 fL (80-98); Mean Platelet Volume 10.2 fL (9.4-12.3); Platelet Count 343 X10*3/uL (160-400); Red Blood Count 4.01 X10*6/uL (4.20-5.50); Red Cell Distribution Width 13.2 % (11.0-16.0); White Blood Count 10.9 X10*3/uL (4.8-10.8)
[2020-07-30 07:25] LABS: Anion Gap 15 (12-20); Blood Urea Nitrogen 23 mg/dL (9-16); Calcium 8.4 mg/dL (8.4-10.2); Carbon Dioxide 25 mmol/L (22-29); Chloride 104 mmol/L (96-108); Estimated Glomerular Filt Rate > 60; Glucose Random 98 mg/dL (60-115); Potassium 3.7 mmol/l (3.3-5.1); Sodium 140 mmol/L (135-145)
== END 2020-07-30 06:31 | disposition home or self-care (01) ==
LOC: HO.MMNH2L 06:30
PROVIDERS: Visit Provider Family Medicine
DX: I10 Essential (primary) hypertension (principal)
CPT/HCPCS: 36415; 80048; 85027

== ENCOUNTER 2020-08-01 06:22 | Outpatient (REF) | payer MEDICARE, SELFPAY ==
[2020-08-01 07:35] LABS: Glucose Urine UA NEG (NEG); Leukocyte Esterase Urine NEG (NEG); Nitrite Urine NEG (NEG); PH 5.5 (5.0-8.0); Urine Blood TRACE (NEG); Urine Ketones NEG (NEG); Urine Protein NEG (NEG-TRACE)
[2020-08-01 07:37] LABS: Appearance Urine HAZY; Color Urine YELLOW
[2020-08-01 07:51] LABS: Squamous Epithelial Cell Urine 2+ /LPF; WBC Urine 0 /HPF (0-4)
== END 2020-08-01 06:23 | disposition home or self-care (01) ==
LOC: HO.MMNH2L 06:22
PROVIDERS: Visit Provider Family Medicine
DX: N39.0 Urinary tract infection, site not specified (principal)
CPT/HCPCS: 81001; 81003; 87086

== ENCOUNTER 2020-08-05 | Outpatient (REF) | payer MEDICARE, SELFPAY ==
[2020-08-05 06:58] LABS: Hematocrit 41.1 % (37-47); Hemoglobin 13.5 g/dl (12.0-16.0); Mean Corpuscular HGB Conc 32.8 g/dl (31.0-35.0); Mean Corpuscular Hemoglobin 31.8 pg (27.0-33.0); Mean Corpuscular Volume 96.7 fL (80-98); Mean Platelet Volume 10.1 fL (9.4-12.3); Platelet Count 449 X10*3/uL (160-400); Red Blood Count 4.25 X10*6/uL (4.20-5.50); Red Cell Distribution Width 12.7 % (11.0-16.0); White Blood Count 9.8 X10*3/uL (4.8-10.8)
[2020-08-05 07:22] LABS: Anion Gap 18 (12-20); Blood Urea Nitrogen 19 mg/dL (9-16); Calcium 8.7 mg/dL (8.4-10.2); Carbon Dioxide 23 mmol/L (22-29); Chloride 101 mmol/L (96-108); Estimated Glomerular Filt Rate > 60; Glucose Random 84 mg/dL (60-115); Potassium 4.1 mmol/l (3.3-5.1); Sodium 138 mmol/L (135-145)
== END 2020-08-05 00:01 ==
LOC: HO.MMNH2L
PROVIDERS: Visit Provider Family Medicine
DX: I10 Essential (primary) hypertension (principal)
CPT/HCPCS: 36415; 80048; 85027

== ENCOUNTER 2020-08-12 | Outpatient (REF) | payer MEDICARE, SELFPAY ==
[2020-08-12 07:01] LABS: Hemoglobin 12.1 g/dl (12.0-16.0); Mean Corpuscular HGB Conc 32.7 g/dl (31.0-35.0); Mean Corpuscular Hemoglobin 31.6 pg (27.0-33.0); Mean Corpuscular Volume 96.6 fL (80-98); Platelet Count 482 X10*3/uL (160-400); Red Blood Count 3.83 X10*6/uL (4.20-5.50); Red Cell Distribution Width 12.5 % (11.0-16.0); White Blood Count 10.4 X10*3/uL (4.8-10.8)
[2020-08-12 07:03] LABS: Anion Gap 14 (12-20); Blood Urea Nitrogen 15 mg/dL (9-16); Calcium 8.6 mg/dL (8.4-10.2); Carbon Dioxide 24 mmol/L (22-29); Chloride 107 mmol/L (96-108); Estimated Glomerular Filt Rate > 60; Glucose Random 87 mg/dL (60-115); Potassium 4.2 mmol/l (3.3-5.1); Sodium 141 mmol/L (135-145)
== END 2020-08-12 00:01 ==
LOC: HO.MMNH2L
PROVIDERS: Visit Provider Family Medicine
DX: I10 Essential (primary) hypertension (principal)
CPT/HCPCS: 36415; 80048; 85027

== ENCOUNTER 2020-08-19 | Outpatient (REF) | payer MEDICARE, SELFPAY ==
[2020-08-19 07:55] LABS: Hemoglobin 11.6 g/dl (12.0-16.0); Mean Corpuscular HGB Conc 32.2 g/dl (31.0-35.0); Mean Corpuscular Hemoglobin 31.7 pg (27.0-33.0); Mean Corpuscular Volume 98.4 fL (80-98); Mean Platelet Volume 10.3 fL (9.4-12.3); Platelet Count 323 X10*3/uL (160-400); Red Blood Count 3.66 X10*6/uL (4.20-5.50); Red Cell Distribution Width 12.6 % (11.0-16.0); White Blood Count 12.3 X10*3/uL (4.8-10.8)
[2020-08-19 08:16] LABS: Anion Gap 12 (12-20); Blood Urea Nitrogen 14 mg/dL (9-16); Calcium 8.3 mg/dL (8.4-10.2); Carbon Dioxide 28 mmol/L (22-29); Chloride 103 mmol/L (96-108); Estimated Glomerular Filt Rate > 60; Glucose Random 81 mg/dL (60-115); Potassium 3.8 mmol/l (3.3-5.1); Sodium 139 mmol/L (135-145)
== END 2020-08-19 00:01 ==
LOC: HO.MMNH2L
PROVIDERS: Visit Provider Family Medicine
DX: I10 Essential (primary) hypertension (principal)
CPT/HCPCS: 36415; 80048; 85027

== ENCOUNTER 2020-08-26 | Outpatient (REF) | payer MEDICARE, SELFPAY ==
[2020-08-26 07:44] LABS: Hematocrit 38.6 % (37-47); Hemoglobin 12.5 g/dl (12.0-16.0); Mean Corpuscular HGB Conc 32.4 g/dl (31.0-35.0); Mean Corpuscular Hemoglobin 31.8 pg (27.0-33.0); Mean Corpuscular Volume 98.2 fL (80-98); Mean Platelet Volume 9.9 fL (9.4-12.3); Platelet Count 351 X10*3/uL (160-400); Red Blood Count 3.93 X10*6/uL (4.20-5.50); Red Cell Distribution Width 12.6 % (11.0-16.0)
[2020-08-26 07:54] LABS: Anion Gap 15 (12-20); Blood Urea Nitrogen 12 mg/dL (9-16); Calcium 8.5 mg/dL (8.4-10.2); Carbon Dioxide 26 mmol/L (22-29); Chloride 106 mmol/L (96-108); Estimated Glomerular Filt Rate > 60; Glucose Random 85 mg/dL (60-115); Potassium 3.8 mmol/l (3.3-5.1); Sodium 143 mmol/L (135-145)
== END 2020-08-26 00:01 ==
LOC: HO.MMNH2L
PROVIDERS: Visit Provider Family Medicine
DX: I10 Essential (primary) hypertension (principal)
CPT/HCPCS: 36415; 80048; 85027

== ENCOUNTER 2020-09-02 | Outpatient (REF) | payer MEDICARE, SELFPAY ==
[2020-09-02 07:44] LABS: Hematocrit 35.4 % (37-47); Hemoglobin 11.4 g/dl (12.0-16.0); Mean Corpuscular HGB Conc 32.2 g/dl (31.0-35.0); Mean Corpuscular Hemoglobin 31.6 pg (27.0-33.0); Mean Corpuscular Volume 98.1 fL (80-98); Mean Platelet Volume 10.1 fL (9.4-12.3); Platelet Count 342 X10*3/uL (160-400); Red Blood Count 3.61 X10*6/uL (4.20-5.50); Red Cell Distribution Width 12.7 % (11.0-16.0); White Blood Count 8.6 X10*3/uL (4.8-10.8)
[2020-09-02 07:58] LABS: Anion Gap 15 (12-20); Blood Urea Nitrogen 14 mg/dL (9-16); Calcium 8.4 mg/dL (8.4-10.2); Carbon Dioxide 25 mmol/L (22-29); Chloride 106 mmol/L (96-108); Estimated Glomerular Filt Rate > 60; Glucose Random 76 mg/dL (60-115); Potassium 3.9 mmol/l (3.3-5.1); Sodium 142 mmol/L (135-145)
== END 2020-09-02 00:01 | disposition home or self-care (01) ==
LOC: HO.MMNH2L
PROVIDERS: Visit Provider Family Medicine
DX: I10 Essential (primary) hypertension (principal)
CPT/HCPCS: 36415; 80048; 85027

== ENCOUNTER 2020-09-09 | Outpatient (REF) | payer MEDICARE, SELFPAY ==
[2020-09-09 07:41] LABS: Hematocrit 41.5 % (37-47); Hemoglobin 13.5 g/dl (12.0-16.0); Mean Corpuscular HGB Conc 32.5 g/dl (31.0-35.0); Mean Corpuscular Hemoglobin 31.6 pg (27.0-33.0); Mean Corpuscular Volume 97.2 fL (80-98); Platelet Count 348 X10*3/uL (160-400); Red Blood Count 4.27 X10*6/uL (4.20-5.50); Red Cell Distribution Width 12.7 % (11.0-16.0); White Blood Count 12.1 X10*3/uL (4.8-10.8)
[2020-09-09 07:54] LABS: Anion Gap 15 (12-20); Blood Urea Nitrogen 13 mg/dL (9-16); Calcium 8.6 mg/dL (8.4-10.2); Carbon Dioxide 23 mmol/L (22-29); Chloride 106 mmol/L (96-108); Estimated Glomerular Filt Rate > 60; Glucose Random 80 mg/dL (60-115); Potassium 4.2 mmol/l (3.3-5.1); Sodium 140 mmol/L (135-145)
== END 2020-09-09 00:01 | disposition home or self-care (01) ==
LOC: HO.MMNH2L
PROVIDERS: Visit Provider Family Medicine
DX: I10 Essential (primary) hypertension (principal)
CPT/HCPCS: 36415; 80048; 85027

== ENCOUNTER 2020-09-16 13:36 | Outpatient (REF) | payer MEDICARE, SELFPAY ==
[2020-09-16 07:49] LABS: Hematocrit 39.1 % (37-47); Hemoglobin 12.7 g/dl (12.0-16.0); Mean Corpuscular HGB Conc 32.5 g/dl (31.0-35.0); Mean Corpuscular Hemoglobin 31.2 pg (27.0-33.0); Mean Corpuscular Volume 96.1 fL (80-98); Mean Platelet Volume 9.9 fL (9.4-12.3); Platelet Count 423 X10*3/uL (160-400); Red Blood Count 4.07 X10*6/uL (4.20-5.50); Red Cell Distribution Width 12.3 % (11.0-16.0); White Blood Count 10.8 X10*3/uL (4.8-10.8)
[2020-09-16 08:24] LABS: Anion Gap 14 (12-20); Blood Urea Nitrogen 15 mg/dL (9-16); Calcium 8.3 mg/dL (8.4-10.2); Carbon Dioxide 27 mmol/L (22-29); Chloride 104 mmol/L (96-108); Estimated Glomerular Filt Rate > 60; Glucose Random 111 mg/dL (60-115); Sodium 141 mmol/L (135-145)
== END 2020-09-16 13:37 | disposition home or self-care (01) ==
LOC: HO.MMNH2L 13:36
PROVIDERS: Visit Provider Family Medicine
DX: I10 Essential (primary) hypertension (principal)
CPT/HCPCS: 36415; 80048; 85027

== ENCOUNTER 2020-09-23 10:31 | Outpatient (REF) | payer MEDICARE, SELFPAY ==
[2020-09-23 07:59] LABS: Hematocrit 41.2 % (37-47); Hemoglobin 13.3 g/dl (12.0-16.0); Mean Corpuscular HGB Conc 32.3 g/dl (31.0-35.0); Mean Corpuscular Hemoglobin 31.3 pg (27.0-33.0); Mean Corpuscular Volume 96.9 fL (80-98); Mean Platelet Volume 9.6 fL (9.4-12.3); Platelet Count 372 X10*3/uL (160-400); Red Blood Count 4.25 X10*6/uL (4.20-5.50); Red Cell Distribution Width 12.8 % (11.0-16.0); White Blood Count 11.6 X10*3/uL (4.8-10.8)
[2020-09-23 08:15] LABS: Anion Gap 14 (12-20); Blood Urea Nitrogen 12 mg/dL (9-16); Calcium 8.7 mg/dL (8.4-10.2); Carbon Dioxide 27 mmol/L (22-29); Chloride 105 mmol/L (96-108); Estimated Glomerular Filt Rate > 60; Glucose Random 89 mg/dL (60-115); Potassium 3.7 mmol/L (3.3-5.1); Sodium 142 mmol/L (135-145)
== END 2020-09-23 10:32 | disposition home or self-care (01) ==
LOC: HO.MMNH2L 10:31
PROVIDERS: Visit Provider Family Medicine
DX: I10 Essential (primary) hypertension (principal)
CPT/HCPCS: 36415; 80048; 85027

== ENCOUNTER 2020-09-30 10:25 | Outpatient (REF) | payer MEDICARE, SELFPAY ==
[2020-09-30 06:39] LABS: MANUAL DIFF FLAG NO
[2020-09-30 07:04] LABS: Basophils Absolute Auto 0.1 X10*3/uL (0.0-0.2); Basophils Percent Auto 1.1 % (0-2); Eosinophils Absolute Auto 0.3 X10*3/uL (0.0-0.4); Eosinophils Percent Auto 3.8 % (0-4); Hematocrit 36.7 % (37-47); Hemoglobin 12.2 g/dl (12.0-16.0); Imm Gran Abs Auto 0.03 X10*3/uL (0.00-0.03); Imm Gran Pct Auto 0.4 % (0.0-0.4); Lymphocytes Percent Auto 23.6 % (20-40); Mean Corpuscular HGB Conc 33.2 g/dl (31.0-35.0); Mean Corpuscular Volume 96.3 fL (80-98); Mean Platelet Volume 10.1 fL (9.4-12.3); Monocytes Absolute Auto 0.7 X10*3/uL (0.1-1.2); Monocytes Percent Auto 7.8 % (2-11); Neutrophils Absolute Auto 5.4 X10*3/uL (2.0-8.3); Neutrophils Percent Auto 63.3 % (45-73); Platelet Count 285 X10*3/uL (160-400); Red Blood Count 3.81 X10*6/uL (4.20-5.50); Red Cell Distribution Width 13.1 % (11.0-16.0); White Blood Count 8.5 X10*3/uL (4.8-10.8)
[2020-09-30 07:28] LABS: Anion Gap 13 (12-20); Blood Urea Nitrogen 14 mg/dL (9-16); Calcium 8.5 mg/dL (8.4-10.2); Carbon Dioxide 29 mmol/L (22-29); Chloride 106 mmol/L (96-108); Estimated Glomerular Filt Rate > 60; Glucose Random 83 mg/dL (60-115); Potassium 3.7 mmol/L (3.3-5.1); Sodium 144 mmol/L (135-145)
== END 2020-09-30 10:26 | disposition home or self-care (01) ==
LOC: HO.MMNH2L 10:25
PROVIDERS: Visit Provider Family Medicine
DX: I10 Essential (primary) hypertension (principal)
CPT/HCPCS: 36415; 80048; 85025

== ENCOUNTER 2020-10-07 10:49 | Outpatient (REF) | payer MEDICARE, SELFPAY ==
[2020-10-07 07:13] LABS: MANUAL DIFF FLAG NO
[2020-10-07 07:41] LABS: Basophils Absolute Auto 0.1 X10*3/uL (0.0-0.2); Basophils Percent Auto 0.9 % (0-2); Eosinophils Absolute Auto 0.3 X10*3/uL (0.0-0.4); Eosinophils Percent Auto 3.6 % (0-4); Hemoglobin 12.8 g/dl (12.0-16.0); Imm Gran Abs Auto 0.03 X10*3/uL (0.00-0.03); Imm Gran Pct Auto 0.3 % (0.0-0.4); Lymphocytes Absolute Auto 2.1 X10*3/uL (1.2-4.9); Lymphocytes Percent Auto 23.8 % (20-40); Mean Corpuscular HGB Conc 32.8 g/dl (31.0-35.0); Mean Corpuscular Hemoglobin 31.6 pg (27.0-33.0); Mean Corpuscular Volume 96.3 fL (80-98); Mean Platelet Volume 9.8 fL (9.4-12.3); Monocytes Absolute Auto 0.6 X10*3/uL (0.1-1.2); Monocytes Percent Auto 7.1 % (2-11); Neutrophils Absolute Auto 5.6 X10*3/uL (2.0-8.3); Neutrophils Percent Auto 64.3 % (45-73); Platelet Count 325 X10*3/uL (160-400); Red Blood Count 4.05 X10*6/uL (4.20-5.50); Red Cell Distribution Width 13.2 % (11.0-16.0); White Blood Count 8.7 X10*3/uL (4.8-10.8)
[2020-10-07 07:52] LABS: Anion Gap 12 (12-20); Blood Urea Nitrogen 14 mg/dL (9-16); Calcium 8.8 mg/dL (8.4-10.2); Carbon Dioxide 29 mmol/L (22-29); Chloride 107 mmol/L (96-108); Estimated Glomerular Filt Rate > 60; Glucose Random 89 mg/dL (60-115); Sodium 144 mmol/L (135-145)
== END 2020-10-07 10:50 | disposition home or self-care (01) ==
LOC: HO.MMNH3L 10:49
PROVIDERS: Visit Provider Family Medicine
DX: I10 Essential (primary) hypertension (principal)
CPT/HCPCS: 36415; 80048; 85025

== ENCOUNTER 2020-10-14 10:27 | Outpatient (REF) | payer MEDICARE, SELFPAY ==
[2020-10-14 08:26] LABS: Hematocrit 39.2 % (37-47); Hemoglobin 12.8 g/dl (12.0-16.0); Mean Corpuscular HGB Conc 32.7 g/dl (31.0-35.0); Mean Corpuscular Hemoglobin 31.7 pg (27.0-33.0); Mean Platelet Volume 9.7 fL (9.4-12.3); Platelet Count 380 X10*3/uL (160-400); Red Blood Count 4.04 X10*6/uL (4.20-5.50); Red Cell Distribution Width 13.4 % (11.0-16.0); White Blood Count 9.3 X10*3/uL (4.8-10.8)
[2020-10-14 09:42] LABS: Anion Gap 18 (12-20); Blood Urea Nitrogen 18 mg/dL (9-16); Calcium 8.6 mg/dL (8.4-10.2); Carbon Dioxide 22 mmol/L (22-29); Chloride 108 mmol/L (96-108); Estimated Glomerular Filt Rate > 60; Glucose Random 82 mg/dL (60-115); Potassium 3.7 mmol/L (3.3-5.1); Sodium 144 mmol/L (135-145)
== END 2020-10-14 10:28 | disposition home or self-care (01) ==
LOC: HO.MMNH3L 10:27
PROVIDERS: Visit Provider Family Medicine
DX: I10 Essential (primary) hypertension (principal)
CPT/HCPCS: 36415; 80048; 85027

== ENCOUNTER 2020-10-21 00:23 | Outpatient (REF) | payer MEDICARE, SELFPAY ==
[2020-10-21 07:48] LABS: Hematocrit 37.8 % (37-47); Hemoglobin 12.8 g/dl (12.0-16.0); Mean Corpuscular HGB Conc 33.9 g/dl (31.0-35.0); Mean Corpuscular Hemoglobin 31.9 pg (27.0-33.0); Mean Corpuscular Volume 94.3 fL (80-98); Mean Platelet Volume 9.7 fL (9.4-12.3); Platelet Count 390 X10*3/uL (160-400); Red Blood Count 4.01 X10*6/uL (4.20-5.50); Red Cell Distribution Width 13.2 % (11.0-16.0); White Blood Count 8.9 X10*3/uL (4.8-10.8)
[2020-10-21 08:10] LABS: Anion Gap 13 (12-20); Blood Urea Nitrogen 11 mg/dL (9-16); Calcium 8.5 mg/dL (8.4-10.2); Carbon Dioxide 29 mmol/L (22-29); Chloride 105 mmol/L (96-108); Estimated Glomerular Filt Rate > 60; Glucose Random 91 mg/dL (60-115); Potassium 3.4 mmol/L (3.3-5.1); Sodium 144 mmol/L (135-145)
== END 2020-10-21 00:24 | disposition home or self-care (01) ==
LOC: HO.MMNH3L 00:23
PROVIDERS: Visit Provider Family Medicine
DX: I10 Essential (primary) hypertension (principal)
CPT/HCPCS: 36415; 80048; 85027

== ENCOUNTER 2020-10-28 01:02 | Outpatient (REF) | payer MEDICARE, SELFPAY ==
[2020-10-28 07:00] LABS: Hematocrit 34.9 % (37-47); Hemoglobin 11.4 g/dl (12.0-16.0); Mean Corpuscular HGB Conc 32.7 g/dl (31.0-35.0); Mean Corpuscular Hemoglobin 31.1 pg (27.0-33.0); Mean Corpuscular Volume 95.1 fL (80-98); Platelet Count 320 X10*3/uL (160-400); Red Blood Count 3.67 X10*6/uL (4.20-5.50); Red Cell Distribution Width 13.3 % (11.0-16.0); White Blood Count 10.8 X10*3/uL (4.8-10.8)
[2020-10-28 07:31] LABS: Anion Gap 12 (12-20); Blood Urea Nitrogen 10 mg/dL (9-16); Calcium 8.1 mg/dL (8.4-10.2); Carbon Dioxide 29 mmol/L (22-29); Chloride 106 mmol/L (96-108); Estimated Glomerular Filt Rate > 60; Glucose Random 87 mg/dL (60-115); Potassium 3.2 mmol/L (3.3-5.1); Sodium 144 mmol/L (135-145)
== END 2020-10-28 01:03 | disposition home or self-care (01) ==
LOC: HO.MMNH3L 01:02
PROVIDERS: Visit Provider Family Medicine
DX: I10 Essential (primary) hypertension (principal)
CPT/HCPCS: 36415; 80048; 85027

== ENCOUNTER 2020-11-04 00:41 | Outpatient (REF) | payer MEDICARE, SELFPAY ==
[2020-11-04 07:16] LABS: Hematocrit 33.1 % (37-47); Mean Corpuscular HGB Conc 33.2 g/dl (31.0-35.0); Mean Corpuscular Hemoglobin 31.3 pg (27.0-33.0); Mean Platelet Volume 9.9 fL (9.4-12.3); Platelet Count 371 X10*3/uL (160-400); Red Blood Count 3.52 X10*6/uL (4.20-5.50); Red Cell Distribution Width 13.4 % (11.0-16.0); White Blood Count 10.7 X10*3/uL (4.8-10.8)
[2020-11-04 07:50] LABS: Anion Gap 14 (12-20); Blood Urea Nitrogen 12 mg/dL (9-16); Carbon Dioxide 27 mmol/L (22-29); Chloride 104 mmol/L (96-108); Estimated Glomerular Filt Rate > 60; Glucose Random 89 mg/dL (60-115); Potassium 3.2 mmol/L (3.3-5.1); Sodium 142 mmol/L (135-145)
== END 2020-11-04 00:42 | disposition home or self-care (01) ==
LOC: HO.MMNH3L 00:41
PROVIDERS: Visit Provider Family Medicine
DX: I10 Essential (primary) hypertension (principal)
CPT/HCPCS: 36415; 80048; 85027

== ENCOUNTER 2020-11-11 00:37 | Outpatient (REF) | payer MEDICARE, SELFPAY ==
[2020-11-11 06:49] LABS: Hematocrit 33.2 % (37-47); Hemoglobin 11.1 g/dl (12.0-16.0); Mean Corpuscular HGB Conc 33.4 g/dl (31.0-35.0); Mean Corpuscular Volume 92.7 fL (80-98); Mean Platelet Volume 9.7 fL (9.4-12.3); Platelet Count 427 X10*3/uL (160-400); Red Blood Count 3.58 X10*6/uL (4.20-5.50); Red Cell Distribution Width 13.2 % (11.0-16.0); White Blood Count 12.2 X10*3/uL (4.8-10.8)
[2020-11-11 07:16] LABS: Anion Gap 17 (12-20); Blood Urea Nitrogen 9 mg/dL (9-16); Calcium 7.8 mg/dL (8.4-10.2); Carbon Dioxide 27 mmol/L (22-29); Chloride 99 mmol/L (96-108); Estimated Glomerular Filt Rate > 60; Glucose Random 97 mg/dL (60-115); Potassium 2.8 mmol/L (3.3-5.1); Sodium 140 mmol/L (135-145)
== END 2020-11-11 00:38 | disposition home or self-care (01) ==
LOC: HO.MMNH3L 00:37
PROVIDERS: Visit Provider Family Medicine
DX: I10 Essential (primary) hypertension (principal)
CPT/HCPCS: 36415; 80048; 85027

== ENCOUNTER 2020-11-18 01:04 | Outpatient (REF) | payer MEDICARE, SELFPAY ==
[2020-11-18 07:43] LABS: Hematocrit 33.7 % (37-47); Mean Corpuscular HGB Conc 32.6 g/dl (31.0-35.0); Mean Corpuscular Hemoglobin 30.9 pg (27.0-33.0); Mean Corpuscular Volume 94.7 fL (80-98); Mean Platelet Volume 9.1 fL (9.4-12.3); Platelet Count 522 X10*3/uL (160-400); Red Blood Count 3.56 X10*6/uL (4.20-5.50); Red Cell Distribution Width 13.5 % (11.0-16.0); White Blood Count 9.6 X10*3/uL (4.8-10.8)
[2020-11-18 07:59] LABS: Anion Gap 13 (12-20); Blood Urea Nitrogen 10 mg/dL (9-16); Calcium 7.9 mg/dL (8.4-10.2); Carbon Dioxide 30 mmol/L (22-29); Chloride 103 mmol/L (96-108); Estimated Glomerular Filt Rate > 60; Glucose Random 94 mg/dL (60-115); Potassium 3.2 mmol/L (3.3-5.1); Sodium 143 mmol/L (135-145)
== END 2020-11-18 01:05 | disposition home or self-care (01) ==
LOC: HO.MMNH3L 01:04
PROVIDERS: Visit Provider Family Medicine
DX: I10 Essential (primary) hypertension (principal)
CPT/HCPCS: 36415; 80048; 85027

== ENCOUNTER 2020-11-25 05:00 | Outpatient (REF) | payer MEDICARE, SELFPAY ==
[2020-11-25 06:59] LABS: Hemoglobin 11.1 g/dl (12.0-16.0); Mean Corpuscular HGB Conc 32.6 g/dl (31.0-35.0); Mean Corpuscular Hemoglobin 31.4 pg (27.0-33.0); Mean Platelet Volume 9.4 fL (9.4-12.3); Platelet Count 435 X10*3/uL (160-400); Red Blood Count 3.54 X10*6/uL (4.20-5.50); White Blood Count 8.1 X10*3/uL (4.8-10.8)
[2020-11-25 07:15] LABS: Anion Gap 13 (12-20); Blood Urea Nitrogen 10 mg/dL (9-16); Calcium 8.5 mg/dL (8.4-10.2); Carbon Dioxide 30 mmol/L (22-29); Chloride 104 mmol/L (96-108); Estimated Glomerular Filt Rate > 60; Glucose Random 81 mg/dL (60-115); Potassium 3.5 mmol/L (3.3-5.1); Sodium 143 mmol/L (135-145)
== END 2020-11-25 05:01 | disposition home or self-care (01) ==
LOC: HO.MMNH3L 05:00
PROVIDERS: Visit Provider Family Medicine
DX: I10 Essential (primary) hypertension (principal)
CPT/HCPCS: 36415; 80048; 85027

== ENCOUNTER 2020-12-02 13:10 | Outpatient (REF) | payer MEDICARE, SELFPAY ==
[2020-12-02 08:26] LABS: Hematocrit 38.6 % (37-47); Hemoglobin 12.2 g/dl (12.0-16.0); Mean Corpuscular HGB Conc 31.6 g/dl (31.0-35.0); Mean Corpuscular Hemoglobin 30.6 pg (27.0-33.0); Mean Corpuscular Volume 96.7 fL (80-98); Mean Platelet Volume 9.7 fL (9.4-12.3); Platelet Count 405 X10*3/uL (160-400); Red Blood Count 3.99 X10*6/uL (4.20-5.50); Red Cell Distribution Width 14.5 % (11.0-16.0); White Blood Count 7.9 X10*3/uL (4.8-10.8)
[2020-12-02 09:20] LABS: Anion Gap 15 (12-20); Blood Urea Nitrogen 11 mg/dL (9-16); Calcium 8.6 mg/dL (8.4-10.2); Carbon Dioxide 27 mmol/L (22-29); Chloride 107 mmol/L (96-108); Estimated Glomerular Filt Rate > 60; Glucose Random 74 mg/dL (60-115); Potassium 4.2 mmol/L (3.3-5.1); Sodium 145 mmol/L (135-145)
== END 2020-12-02 13:11 | disposition home or self-care (01) ==
LOC: HO.MMNH3L 13:10
PROVIDERS: Visit Provider Family Medicine
DX: I10 Essential (primary) hypertension (principal)
CPT/HCPCS: 36415; 80048; 85027

== ENCOUNTER 2020-12-09 06:45 | Outpatient (REF) | payer MEDICARE, SELFPAY ==
[2020-12-09 07:01] LABS: Hematocrit 39.4 % (37-47); Hemoglobin 12.6 g/dl (12.0-16.0); Mean Corpuscular Volume 96.8 fL (80-98); Mean Platelet Volume 9.6 fL (9.4-12.3); Platelet Count 403 X10*3/uL (160-400); Red Blood Count 4.07 X10*6/uL (4.20-5.50); Red Cell Distribution Width 14.5 % (11.0-16.0); White Blood Count 8.3 X10*3/uL (4.8-10.8)
[2020-12-09 07:27] LABS: Anion Gap 15 (12-20); Blood Urea Nitrogen 13 mg/dL (9-16); Calcium 8.9 mg/dL (8.4-10.2); Carbon Dioxide 27 mmol/L (22-29); Chloride 104 mmol/L (96-108); Estimated Glomerular Filt Rate > 60; Glucose Random 91 mg/dL (60-115); Potassium 3.9 mmol/L (3.3-5.1); Sodium 142 mmol/L (135-145)
== END 2020-12-09 06:46 | disposition home or self-care (01) ==
LOC: HO.MMNH3L 06:45
PROVIDERS: Visit Provider Family Medicine
DX: I10 Essential (primary) hypertension (principal)
CPT/HCPCS: 36415; 80048; 85027

== ENCOUNTER 2020-12-16 00:34 | Outpatient (REF) | payer MEDICARE, SELFPAY ==
[2020-12-16 07:41] LABS: Hematocrit 37.3 % (37-47); Mean Corpuscular HGB Conc 32.2 g/dl (31.0-35.0); Mean Corpuscular Volume 96.4 fL (80-98); Mean Platelet Volume 9.5 fL (9.4-12.3); Platelet Count 381 X10*3/uL (160-400); Red Blood Count 3.87 X10*6/uL (4.20-5.50); Red Cell Distribution Width 14.3 % (11.0-16.0); White Blood Count 10.1 X10*3/uL (4.8-10.8)
[2020-12-16 08:23] LABS: Anion Gap 14 (12-20); Blood Urea Nitrogen 12 mg/dL (9-16); Calcium 8.6 mg/dL (8.4-10.2); Carbon Dioxide 29 mmol/L (22-29); Chloride 104 mmol/L (96-108); Estimated Glomerular Filt Rate > 60; Glucose Random 81 mg/dL (60-115); Potassium 3.6 mmol/L (3.3-5.1); Sodium 143 mmol/L (135-145)
== END 2020-12-16 00:35 | disposition home or self-care (01) ==
LOC: HO.MMNH3L 00:34
PROVIDERS: Visit Provider Family Medicine
DX: I10 Essential (primary) hypertension (principal)
CPT/HCPCS: 36415; 80048; 85027

== ENCOUNTER 2020-12-19 07:49 | Outpatient (REF) | payer MEDICARE, SELFPAY ==
[2020-12-19 08:33] LABS: Hematocrit 36.8 % (37-47); Hemoglobin 11.7 g/dl (12.0-16.0); Mean Corpuscular HGB Conc 31.8 g/dl (31.0-35.0); Mean Corpuscular Hemoglobin 30.5 pg (27.0-33.0); Mean Corpuscular Volume 96.1 fL (80-98); Mean Platelet Volume 9.8 fL (9.4-12.3); Platelet Count 389 X10*3/uL (160-400); Red Blood Count 3.83 X10*6/uL (4.20-5.50); Red Cell Distribution Width 14.2 % (11.0-16.0); White Blood Count 9.4 X10*3/uL (4.8-10.8)
[2020-12-19 09:14] LABS: Anion Gap 13 (12-20); Blood Urea Nitrogen 16 mg/dL (9-16); Calcium 8.7 mg/dL (8.4-10.2); Carbon Dioxide 29 mmol/L (22-29); Chloride 105 mmol/L (96-108); Cholesterol 161 mg/dL; Estimated Glomerular Filt Rate > 60; Glucose Random 74 mg/dL (60-115); Potassium 3.7 mmol/L (3.3-5.1); Sodium 143 mmol/L (135-145)
== END 2020-12-19 07:50 | disposition home or self-care (01) ==
LOC: HO.MMNH3L 07:49
PROVIDERS: Visit Provider Family Medicine
DX: I69.351 Hemiplegia and hemiparesis following cerebral infarction affecting right dominant side (principal); I65.23 Occlusion and stenosis of bilateral carotid arteries; F03.90 Unspecified dementia, unspecified severity, without behavioral disturbance, psychotic disturbance, mood disturbance, and anxiety
CPT/HCPCS: 36415; 80048; 82465; 85027

== ENCOUNTER 2021-01-07 04:06 | Inpatient (IN) | payer MEDICARE, SELFPAY ==
[2021-01-07] VITALS (17 sets, daily range): BP systolic 116–169; BP diastolic 57–79; PULSE 74–110; RESP 16–20; TEMP 36.4–36.9; O2SAT 87–100; BMI 25.1
--- NOTE | ~2021-01-07 | XR_ITS ---
EXAMINATION: XR CHEST CLINICAL INFORMATION: Cough COMPARISON: 07/23/2020 TECHNIQUE: Frontal view of the chest was obtained. FINDINGS: The lungs are well expanded. Streaky opacity at the left base noted. No pleural effusion or pneumothorax. The cardiomediastinal silhouette is within normal limits. Degenerative changes of the shoulders. XR/XR chest 1V IMPRESSION: Streaky opacity at the left base could represent atelectasis or developing pneumonia.
--- NOTE | ~2021-01-07 | CT_ITS ---
EXAMINATION: CT CHEST WITH CONTRAST CT ABDOMEN AND PELVIS WITH CONTRAST CLINICAL INFORMATION: Shortness of breath. Cough. Diffuse abdominal pain. COMPARISON: CT of the neck from 07/25/2020 TECHNIQUE: Multidetector volumetric imaging was performed through the chest, abdomen and pelvis following the administration of 85 mL of Omnipaque 350 intravenous contrast. Sagittal and coronal reformatted images were obtained on the technologist's workstation. Axial MIP volume rendering provided. This CT examination was performed using dose optimization techniques as appropriate, variously including the following: *Automated exposure control *Adjustment of mA and/or kV according to patient size (this includes techniques or standardized protocols for targeted exams where dose is matched to indication/reason for exam; i.e. extremities or head) *Use of iterative reconstruction technique DLP: 868 mGy-cm. FINDINGS: CHEST: Lungs: The central airways are patent. Multiple pulmonary nodules are noted, new or increased from the prior neck CT. Most prominent is seen in the right upper lobe measuring 0.6 cm on series 7 image 93. This had measured 0.2 cm on prior. Additional nodules are increased. For instance an additional 0.5 cm right upper lobe nodule on series 7 image 112. Anterior left upper lobe nodule measures 0 on series 7 image 61, previously 0.2 cm. Scattered additional nodules are seen throughout both lungs. There is an area of patchy consolidation in the right lower lobe near the costophrenic angle as well as dependently in the right middle lobe. Linear left basilar atelectasis with minimal groundglass opacification. No pleural effusion. No pneumothorax. Mediastinum: The heart is of normal size. Coronary artery calcifications. There is no pericardial effusion. Central vascular structures are unremarkable. No hilar or mediastinal lymphadenopathy. Chest Wall/Axilla: No lymphadenopathy. No chest wall mass. ABDOMEN/PELVIS: Liver, Gallbladder, Biliary Tree: The liver is normal in size, shape, and attenuation. Scattered calcifications are seen in the liver. Area of hypoattenuation noted in segment 3 is irregular measuring 1.7 cm. Mild intrahepatic biliary ductal dilatation. The patient is status post cholecystectomy. There is prominent dilatation of the common bile duct with no intraductal filling defect. Pancreas: Unremarkable. Spleen: Unremarkable. Adrenal Glands: Unremarkable. Kidneys and Ureters: The kidneys are normal in size, shape, and attenuation. No hydronephrosis or hydroureter. There is a 1.4 cm right upper pole simple cyst. Exophytic right midpole 5.1 cm simple cyst. No follow-up imaging recommended. There is a left lower pole 0.7 cm calculus which is 10 cm from the posterior axillary line. This measures 850 Hounsfield units. Bladder: Unremarkable. Gastrointestinal Tract: The stomach is unremarkable. Normal caliber small bowel. No obstruction. No colonic wall thickening or acute inflammatory change. Scattered colonic diverticulosis without diverticulitis. No free air or free fluid. Abdominal Wall: No hernia is demonstrated. Lymphovascular Structures: Lymph nodes: Normal. Vascular: Normal caliber aorta with moderate atherosclerotic calcification. Pelvic Viscera: Abnormal uterus. There is irregular heterogeneous endometrial thickening measuring. Diffuse septations noted. No adnexal mass. OSSEOUS STRUCTURES: No suspicious sclerotic or lytic bone lesions are identified. Advanced severe degenerative changes of the left hip. Moderate to severe degenerative changes of the right hip. Multilevel degenerative changes of the spine. DISH. CT/CT abdomen pelvis w con IMPRESSION: 1. Abnormal appearance of the uterus with heterogeneous irregular thickening of the endometrium. This is suspicious for neoplasm. 2. Multiple pulmonary nodules are identified. These are new/increased from the previous CT angiogram of the neck from 07/25/2020 and suspicious for metastatic disease. 3. The patchy opacity of the right lower lobe near the costophrenic angle could be associated with infectious process. 4. Nonspecific hypoattenuating area in the left lobe of the liver. Cannot exclude metastatic disease.
--- NOTE | 2021-01-07 04:26 | ECG_ITS ---
Test Reason : NAUSEA VOMIT Blood Pressure : / mmHG Vent. Rate : 098 BPM Atrial Rate : 098 BPM P-R Int : 142 ms QRS Dur : 100 ms QT Int : 408 ms P-R-T Axes : 056 056 129 degrees QTc Int : 520 ms Normal sinus rhythm ST & T wave abnormality, consider inferolateral ischemia Prolonged QT Abnormal ECG When compared with ECG of 23-JUL-2020 11:03, T wave inversion now evident in Inferior leads T wave inversion now evident in Lateral leads QT has lengthened Referred By: Jazlyn Freed Electronically Signed By:DASHA GUEVARA
--- NOTE | 2021-01-07 05:07 | ED_ITS ---
HPI - Abdominal Pain General Chief Complaint: Abdominal Pain Stated Complaint: N/V X'S HOURS FROM SNF Time Seen by Provider: 01/07/21 04:26 Source: patient Mode of arrival: EMS History of Present Illness HPI narrative: 85-year-old female with abdominal pain that started last night and she reports that it moves around. This is been associated with nausea and vomiting as well as chills but patient denies any fever. As per staff they repo rt 1 black stool. As per EMS patient was sleeping when they arrived. Patient states that ?the pain moves?. Otherwise, she denies chills, shortness of breath, chest pain. Related Data Previous Rx's Medication Instructions Recorded amlodipine 5 mg tablet 10 mg PO DAILY 30 Days #60 tab 06/20/20 miscellaneous medical supply #1 ea 07/09/20 blood pressure monitor #1 ea 07/19/20 aspirin 81 mg PO DAILY #30 tab 07/26/20 atorvastatin 80 mg PO BEDTIME #30 tab 07/26/20 clopidogrel 75 mg PO DAILY #30 tab 07/26/20 metoprolol succinate 50 mg PO DAILY #30 tab 07/26/20 Allergies Allergy/AdvReac Type Severity Reaction Status Date / Time egg [EGG] Allergy Unknown UNKNOWN Verified 05/29/20 09:45 STREPTOMYCES ANTIBIOTICUS Allergy Unknown UNKNOWN Uncoded 05/22/20 16:39 DRVD Review of Systems Review of Systems Pertinent positives and negatives as stated in HPI 10 point review of systems is otherwise negative. Physical Exam Vital Signs: Vital Signs: Last Vital Signs Temp 98.2 F 01/07/21 07:46 Pulse 105 H 01/07/21 07:46 Resp 20 01/07/21 07:46 BP 116/71 01/07/21 07:46 Pulse Ox 96 01/07/21 07:46 Body Mass Index 25.1 VITAL SIGNS: Reviewed. GENERAL: Well developed, well nourished, in no acute distress. HEAD: Normocephalic/atraumatic, EYES: PERRLA, EOMI EARS: Ext canals without abnormality NOSE: Nares patent bilateral OROPHARYNX: no oral lesions noted, posterior pharynx clear, dry mucosa NECK: Supple, no adenopathy LUNGS: Decreased breath sounds bilaterally with crackles. SpO2<87> which iimproved to 94 to 96% on 2 L of nasal cannula CARDIOVASCULAR: Regular rate and rhythm without noted murmurs, no JVD or lower extremity edema. ABDOMEN: Vomiting, Soft, tenderness in upper abdomen without rebound, non- distended with bowel sounds. NEUROLOGIC: Alert and oriented x 4. Strength and sensation to light touch were grossly intact x 4. Course Course Course Narrative: 0536: 85-year-old female with history and clinical presentation suggestive of possible infectious versus obstructive process and given hypoxia would consider possible pneumonia/aspiration given history of CVA. 0715: Review of all investigations significant for what appears to be a right lower lobe pneumonia and possible intra-abdominal metastatic cancer with hypokalemia. Patient has received antibiotics, potassium repletion, as well as sepsis fluids. MDM - Abdominal Pain Lab Data Result diagrams: 01/07/21 05:14 01/07/21 05:14 Labs: Lab Results 01/07/21 01/07/21 01/07/21 Range/Units 05:14 05:14 05:14 WBC 22.9 H (4.8-10.8) X10*3/uL RBC 4.08 L (4.20-5.50) X10*6/uL Hgb 12.7 (12.0-16.0) g/dl Hct 38.5 (37-47) % MCV 94.4 (80-98) fL MCH 31.1 (27.0-33.0) pg MCHC 33.0 (31.0-35.0) g/dl RDW 13.7 (11.0-16.0) % Plt Count 481 H (160-400) X10*3/uL MPV 9.3 L (9.4-12.3) fL Immature Gran % (Auto) 0.5 H (0.0-0.4) % Neut % (Auto) 91.5 H (45-73) % Lymph % (Auto) 3.6 L (20-40) % Kleberg % (Auto) 4.0 (2-11) % Eos % (Auto) 0.1 (0-4) % Baso % (Auto) 0.3 (0-2) % Lymph # (Auto) 0.8 L (1.2-4.9) X10*3/uL [place] # (Auto) 0.9 (0.1-1.2) X10*3/uL Eos # (Auto) 0.0 (0.0-0.4) X10*3/uL Baso # (Auto) 0.1 (0.0-0.2) X10*3/uL Abs Immat Gran (auto) 0.11 H (0.00-0.03) X10*3/uL Absolute Neuts (auto) 20.9 H (2.0-8.3) X10*3/uL Absolute Nucleated RBC 0.000 (0.0-0.012) X10*3/uL Nucleated RBC % (auto) 0.0 (0.0-0.2) /100WBC Smear Tech's Comments VERIFIED PT 12.1 (10.8-13.0) SEC INR 1.0 (0.9-1.1) Sodium 142 (135-145) mmol/L Potassium 2.8 L D (3.3-5.1) mmol/L Chloride 102 (96-108) mmol/L Carbon Dioxide 25 (22-29) mmol/L Anion Gap 18 (12-20) BUN 16 (9-16) mg/dL Creatinine 0.74 (0.5-1.4) mg/dL Estim Creat Clear Calc 47.1 Estimated GFR > 60 Random Glucose 212 H D (60-115) mg/dL Lactic Acid (0.5-2.0) mmol/L Calcium 9.6 D (8.4-10.2) mg/dL Magnesium (1.6-2.6) mg/dL Total Bilirubin 0.3 (0.0-1.0) mg/dL AST 18 (5-31) U/L ALT 15 (0-31) U/L Alkaline Phosphatase 75 (39-117) U/L Total Protein 7.4 (6.5-8.0) g/dL Albumin 4.0 (3.5-5.0) g/dL Lipase (8-78) U/L COVID-19 (WEN) (Negative) COVID-19 Clin Com 01/07/21 01/07/21 01/07/21 Range/Units 05:14 05:14 05:31 WBC (4.8-10.8) X10*3/uL RBC (4.20-5.50) X10*6/uL Hgb (12.0-16.0) g/dl Hct (37-47) % MCV (80-98) fL MCH (27.0-33.0) pg MCHC (31.0-35.0) g/dl RDW (11.0-16.0) % Plt Count (160-400) X10*3/uL MPV (9.4-12.3) fL Immature Gran % (Auto) (0.0-0.4) % Neut % (Auto) (45-73) % Lymph % (Auto) (20-40) % [place] % (Auto) (2-11) % Eos % (Auto) (0-4) % Baso % (Auto) (0-2) % Lymph # (Auto) (1.2-4.9) X10*3/uL [place] # (Auto) (0.1-1.2) X10*3/uL Eos # (Auto) (0.0-0.4) X10*3/uL Baso # (Auto) (0.0-0.2) X10*3/uL Abs Immat Gran (auto) (0.00-0.03) X10*3/uL Absolute Neuts (auto) (2.0-8.3) X10*3/uL Absolute Nucleated RBC (0.0-0.012) X10*3/uL Nucleated RBC % (auto) (0.0-0.2) /100WBC Smear Tech's Comments PT (10.8-13.0) SEC INR (0.9-1.1) Sodium (135-145) mmol/L Potassium (3.3-5.1) mmol/L Chloride (96-108) mmol/L Carbon Dioxide (22-29) mmol/L Anion Gap (12-20) BUN (9-16) mg/dL Creatinine (0.5-1.4) mg/dL Estim Creat Clear Calc Estimated GFR Random Glucose (60-115) mg/dL Lactic Acid 3.4 H* (0.5-2.0) mmol/L Calcium (8.4-10.2) mg/dL Magnesium 1.6 (1.6-2.6) mg/dL Total Bilirubin (0.0-1.0) mg/dL AST (5-31) U/L ALT (0-31) U/L Alkaline Phosphatase (39-117) U/L Total Protein (6.5-8.0) g/dL Albumin (3.5-5.0) g/dL Lipase 52 (8-78) U/L COVID-19 (WEN) Negative (Negative) COVID-19 Clin Com See Note ECG Data Attestation: I personally reviewed and interpreted this ECG as follows: Prior ECG tracings: available for review (07/23/2020 changes in V3 but otherwise no acute difference) Interpretation: Sinus rhythm, HR -98, no evidence of acute ischemia, MD/QRS are within normal limits. Critical Care Time Critical Care Time Critical Care Time: Yes Total Critical Care Time: 45 Attestation: I personally attest to this time spent taking care of the patient. 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 Mother No problems noted. Social History Social History Household Members: Spouse Housing: House Alcohol intake: unknown Smoking Status: Never smoker Advance Directives: No Advance Directives Information Provided: No service: No Current occupational status: retired
[2021-01-07 05:23] LABS: Basophils Absolute Auto 0.1 X10*3/uL (0.0-0.2); Basophils Percent Auto 0.3 % (0-2); Eosinophils Percent Auto 0.1 % (0-4); Hematocrit 38.5 % (37-47); Hemoglobin 12.7 g/dl (12.0-16.0); Imm Gran Abs Auto 0.11 X10*3/uL (0.00-0.03); Imm Gran Pct Auto 0.5 % (0.0-0.4); Lymphocytes Absolute Auto 0.8 X10*3/uL (1.2-4.9); Lymphocytes Percent Auto 3.6 % (20-40); MANUAL DIFF FLAG SCAN; Mean Corpuscular Hemoglobin 31.1 pg (27.0-33.0); Mean Corpuscular Volume 94.4 fL (80-98); Mean Platelet Volume 9.3 fL (9.4-12.3); Monocytes Absolute Auto 0.9 X10*3/uL (0.1-1.2); Neutrophils Absolute Auto 20.9 X10*3/uL (2.0-8.3); Neutrophils Percent Auto 91.5 % (45-73); Platelet Count 481 X10*3/uL (160-400); Red Blood Count 4.08 X10*6/uL (4.20-5.50); Red Cell Distribution Width 13.7 % (11.0-16.0); SCAN SMEAR FLAG 1; White Blood Count 22.9 X10*3/uL (4.8-10.8)
[2021-01-07 05:29] LABS: Prothrombin Time 12.1 SEC (10.8-13.0)
[2021-01-07 05:49] LABS: Lactic Acid 3.4 mmol/L (0.5-2.0)
[2021-01-07 05:51] LABS: COVID-19 Test Negative (Negative); IDNOW Serial# 9DD0AD1C
[2021-01-07 05:51] LABS: Lipase 52 U/L (8-78); Magnesium 1.6 mg/dL (1.6-2.6)
[2021-01-07 05:54] LABS: Alanine Aminotransferase 15 U/L (0-31); Alkaline Phosphatase 75 U/L (39-117); Anion Gap 18 (12-20); Aspartate Amino Transferase 18 U/L (5-31); Bilirubin Total 0.3 mg/dL (0.0-1.0); Blood Urea Nitrogen 16 mg/dL (9-16); Calcium 9.6 mg/dL (8.4-10.2); Carbon Dioxide 25 mmol/L (22-29); Chloride 102 mmol/L (96-108); Creatinine Clr Calc Pharmacy 47.1; Estimated Glomerular Filt Rate > 60; Glucose Random 212 mg/dL (60-115); Potassium 2.8 mmol/L (3.3-5.1); Sodium 142 mmol/L (135-145); Total Protein 7.4 g/dL (6.5-8.0)
[2021-01-07 06:01] LABS: SLIDE REVIEW VERIFIED
[2021-01-07] MEDS: ondansetron HCL 4 MG/2 ML VIAL IVPUSH ×2 (06:10→11:02)
[2021-01-07] MEDS: iohexoL 350 MG/ML 100 ML INFUS..BTL 85 ML IV (06:31)
[2021-01-07 07:20] LABS: Reflex Lactate? Lactic Acid Added
--- NOTE | 2021-01-07 07:31 | PC.NURSE ---
Late entry: since arrival, patient has had small amounts of thick green/yellow emesis and nausea. Denies abdominal pain, however, pain with RUQ palpation by . Pt is a poor historian with hx of dementia, arrives from [facility]. Pt is otherwise cooperative/calm with staff. Medicated with Zofran 4mg IV, as well as Zofran IM by EMS prior to arrival for nausea. Will continue to monitor.
[2021-01-07] MEDS: Piperacillin Sodium/Tazobactam 3.375 GM in 0.9 % Sodium Chloride 50 ML IV ×3 (07:46→21:33)
--- NOTE | 2021-01-07 07:48 | PC.NURSE ---
linen from prior facility removed from underneath pt, saturated pad and brief removed. pt clean and new linen placed on bed. some skin break down noted on coccyx. pt sat up in bed and abx administered.
[2021-01-07 08:37] LABS: B Type Natriuretic Peptide 26 pg/mL (<100)
[2021-01-07] MEDS: Potassium Chloride/H20 10 MEQ/100 ML PIGGYBACK 100 MEQ IV ×4 (08:38→13:31)
[2021-01-07 09:31] LABS: ~Lactic Acid-LAB USE ONLY 2.1 mmol/L (0.5-2.0)
[2021-01-07 10:59] LABS: Reflex Lactate? 2 Y
--- NOTE | 2021-01-07 11:35 | PC.NURSE ---
call for report, nurse to call back
[2021-01-07 11:58] LABS: ~Lactic Acid-LAB USE ONLY 1.5 mmol/L (0.5-2.0)
--- NOTE | 2021-01-07 11:58 | MHC.SL.SWA ---
Speech Pathologist Impression: Risk of Aspiration Oralpharyngeal Dysphagia Risk of Aspiration Due to: Neurological Condition History of Pneumonia Reduced Cognition Dysphasia Diet Status: Downgrade Liquid Consistency and Strategies for Safe Swallow: Liquid Intake Recommendation: Rarden Thick Liquid Intake Strategies: Small Sips No Straws Solid Food Consistency: Dietary Recommendations: TBD Additional Modifications to Solid Foods: Patient refused solids. Unable to administer solid trials. Per nurse at [facility], patient is reportedly on a regular unmodified diet. Given patient's limited dentition, she may benefit from soft diet (i.e. pureed solids versus ground solids) due to risk of choking. Plan to continue following patient to re-assess tolerance and identify safe solid consistency. Oral Medication Intake: Whole with Puree Compensatory Strategies and Precautions to be Taken for Safe Swallow: Sitting Upright (90 deg) No Straw Small Bites and Sips Alternate Liquids/Solids Rate of Ingestion Change Supervision While Eating and Drinking for Safe Swallow: Total Supervision (1:1) Swallowing Recommended Treatments: Compens. Strategy Educat. Recommendation for Speech: Inpatient Speech Therapy Comment: Coughing after drinking thin liquid. Patient refused solids. Unable to administer solid trials. Per nurse at [facility], patient is reportedly on a regular unmodified diet at baseline. Given patient's limited dentition, she may benefit from soft diet (i.e. pureed solids versus ground solids) due to risk of choking. Plan to continue following patient to re-assess tolerance and identify safe solid consistency. Edge Kitter Clinican/Clinical Fellow: No Supervisory Statement: I have reviewed and agree with the student/clinical fellow's documentation: N/A Speech Language Pathologist: Lilia Aguillon M.A., CCC-PRODUCT SUPPORT MANAGER
--- NOTE | 2021-01-07 14:15 | MHC.CM.PN ---
CM met with Patient at bedside and addressed the IMM with her, providing her with the original and placing a copy on the chart.Patient stated that she did not feel up to answering questions and gave CM permission to speak with her /HCP/Yunior at [phone]. OBI was only able to leave a detailed message for Yunior and awaits a return call from Yunior. OBI has initiated and will follow for dc planning.
[2021-01-07] MEDS: Heparin Sodium,Porcine 5,000 UNIT/ML VIAL 5000 UNIT SUBCUT ×2 (14:19→21:32)
[2021-01-07] MEDS: Metoprolol Succinate ER 50 MG TAB.ER.24H PO (14:19)
--- NOTE | 2021-01-07 15:06 | PM.IMHP ---
History of Present Illness Date of Service: 01/07/21 Chief Complaint: Difficulty breathing, vomiting An 85 years old lady with PMH of HTN, HLD, CVA who presents to the hospital with complaint of abdominal pain, nausea and vomiting for 1 day prior to admission. The patient reported that she started feeling abdominal pain in the epigastric area associated with multiple episodes of nausea and vomiting with feeling chills but no fever. She reported minimal respiratory symptoms or cough and difficulty in swallowing on occasions with coughing mainly clear liquids. She was treated by the end of last year for acute stroke and right-sided weakness. In the emergency a CT scan of the chest was consistent with right lower lobe infiltrate suggestive of aspiration pneumonia. Admitted for further evaluation treatment. 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 Mother No problems noted. Surgical History History of cholecystectomy History of nephrolithotomy with removal of calculi Social History Household Members: Spouse Housing: Alf Do you presently have visiting nurse or other home services: Yes Unable to assess alcohol history related to: Unknown Alcohol intake: never Smoking Status: Never smoker Use of substances other than those prescribed or required for medical reasons: No Have you been hit, kicked, punched, or otherwise hurt by someone within the past year? If so, by whom?: No Do you feel safe in your current relationship?: Yes Is there a partner from a previous relationship who is making you feel unsafe now?: No Are you made to feel afraid or neglected: No Advance Directives: No Advance Directives Information Provided: No Do you have thoughts of harming others: None Do you have a plan to hurt others: No Plan Recently lost weight without trying: Unsure service: No Current occupational status: retired Meds Allergies Allergy/AdvReac Type Severity Reaction Status Date / Time egg [EGG] Allergy Unknown UNKNOWN Verified 05/29/20 09:45 STREPTOMYCES ANTIBIOTICUS Allergy Unknown UNKNOWN Uncoded 05/22/20 16:39 DRVD Active Medications: Current Medications Generic Name Dose Route Start Last Admin Trade Name Freq PRN Reason Stop Dose Admin Acetaminophen 650 mg 01/07/21 13:02 Acetaminophen 325 Mg Tablet PO Q6H PRN Pain, Mild (Pain Scale 1-3) Al Hydroxide/Mg Hydroxide 30 ml 01/07/21 13:02 Magnesium Hydrox/Alum Hydrox 30 Ml Oral.Susp PO Q4H PRN Heartburn/Nausea Amlodipine Besylate 10 mg 01/08/21 09:00 Amlodipine Besylate 10 Mg Tablet PO DAILY [facility] Protocol Atorvastatin Calcium 80 mg 01/07/21 21:00 Atorvastatin Calcium 80 Mg Tablet PO BEDTIME [facility] Clopidogrel Bisulfate 75 mg 01/08/21 09:00 Clopidogrel Bisulfate 75 Mg Tablet PO DAILY [facility] Heparin Sodium (Porcine) 5,000 unit 01/07/21 13:02 01/07/21 14:19 Heparin Sodium,Porcine 5,000 Unit/Ml Vial SUBCUT 5,000 unit Q8H [facility] Administration Piperacillin Sod/Tazobactam 50 mls @ 100 mls/hr 01/07/21 13:02 01/07/21 14:20 Sod 3.375 gm/ Sodium Chloride IV 100 mls/hr Q6H [facility] Administration Metoprolol Succinate 50 mg 01/07/21 13:02 01/07/21 14:19 Metoprolol Succinate Er 50 Mg Tab.Er.24h PO 50 mg DAILY [facility] Administration Protocol Ondansetron HCl 4 mg 01/07/21 13:02 Ondansetron Hcl 4 Mg/2 Ml Vial IVPUSH Q8H PRN Nausea and Vomiting Sodium Chloride 3 ml 01/07/21 16:00 0.9 % Sodium Chloride Flush 3 Ml Syringe IVFLUSH QSHIFT [facility] Home Medications Medication Instructions Recorded Confirmed Last Taken Type amlodipine 10 mg PO DAILY 01/07/21 01/07/21 Unknown History Physical Exam Vital Signs and Narrative: Vital Signs: Last Vital Signs Temp 98.3 F 01/07/21 15:01 Pulse 97 01/07/21 15:01 Resp 18 01/07/21 15:01 BP 128/59 L 01/07/21 15:01 Pulse Ox 100 01/07/21 15:01 Body Mass Index 25.1 Const: Other: Constitutional : Alert, oriented, not in distress Neck : Normal inspection, Supple Cardiovascular : RRR, S1 S2, no lower extremity edema Respiratory : bilateral air entry, right lower lobe crackles, wheezes or rhonchi Gastrointestinal: soft, lax, Normal bowel sounds, Non tender Skin : Warm/Dry, No rash Neurological : Alert & oriented x3, right lower extremity weakness +4 to +5 with normal sensation, right upper extremity weakness +3 power, cranial nerves within normal. Results Labs CBC and Chem 7: 01/07/21 05:14 01/07/21 05:14 Labs: Laboratory Results - last 24 hr 01/07/21 01/07/21 01/07/21 05:14 05:14 05:14 MCV 94.4 MCH 31.1 MCHC 33.0 RDW 13.7 Plt Count 481 H MPV 9.3 L Immature Gran % (Auto) 0.5 H Neut % (Auto) 91.5 H Lymph % (Auto) 3.6 L [place] % (Auto) 4.0 Eos % (Auto) 0.1 Baso % (Auto) 0.3 Lymph # (Auto) 0.8 L [place] # (Auto) 0.9 Eos # (Auto) 0.0 Baso # (Auto) 0.1 Abs Immat Gran (auto) 0.11 H Absolute Neuts (auto) 20.9 H Absolute Nucleated RBC 0.000 Nucleated RBC % (auto) 0.0 Smear Tech's Comments VERIFIED PT 12.1 INR 1.0 Anion Gap 18 Estim Creat Clear Calc 47.1 Estimated GFR > 60 Random Glucose 212 H D Lactic Acid Lactic Acid Fup @ 2Hr Lactic Acid Fup @ 4Hr Calcium 9.6 D Magnesium Total Bilirubin 0.3 AST 18 ALT 15 Alkaline Phosphatase 75 B-Natriuretic Peptide Total Protein 7.4 Albumin 4.0 Lipase COVID-19 ([facility]) COVID-19 Clin Com 01/07/21 01/07/21 01/07/21 05:14 05:14 05:14 MCV MCH MCHC RDW Plt Count MPV Immature Gran % (Auto) Neut % (Auto) Lymph % (Auto) [place] % (Auto) Eos % (Auto) Baso % (Auto) Lymph # (Auto) [place] # (Auto) Eos # (Auto) Baso # (Auto) Abs Immat Gran (auto) Absolute Neuts (auto) Absolute Nucleated RBC Nucleated RBC % (auto) Smear Tech's Comments PT INR Anion Gap Estim Creat Clear Calc Estimated GFR Random Glucose Lactic Acid 3.4 H* Lactic Acid Fup @ 2Hr Lactic Acid Fup @ 4Hr Calcium Magnesium 1.6 Total Bilirubin AST ALT Alkaline Phosphatase B-Natriuretic Peptide 26 Total Protein Albumin Lipase 52 COVID-19 (WEN) COVID-19 Clin Com 01/07/21 01/07/21 01/07/21 05:31 08:56 11:25 MCV MCH MCHC RDW Plt Count MPV Immature Gran % (Auto) Neut % (Auto) Lymph % (Auto) [place] % (Auto) Eos % (Auto) Baso % (Auto) Lymph # (Auto) [place] # (Auto) Eos # (Auto) Baso # (Auto) Abs Immat Gran (auto) Absolute Neuts (auto) Absolute Nucleated RBC Nucleated RBC % (auto) Smear Tech's Comments PT INR Anion Gap Estim Creat Clear Calc Estimated GFR Random Glucose Lactic Acid Lactic Acid Fup @ 2Hr 2.1 H* Lactic Acid Fup @ 4Hr 1.5 Calcium Magnesium Total Bilirubin AST ALT Alkaline Phosphatase B-Natriuretic Peptide Total Protein Albumin Lipase COVID-19 (WEN) Negative COVID-19 Clin Com See Note Imaging Radiologist's Impressions: Impressions Chest X-Ray 01/07/21 04:27 IMPRESSION: Streaky opacity at the left base could represent atelectasis or developing pneumonia. Abdomen/Pelvis CT 01/07/21 05:36 IMPRESSION: 1. Abnormal appearance of the uterus with heterogeneous irregular thickening of the endometrium. This is suspicious for neoplasm. 2. Multiple pulmonary nodules are identified. These are new/increased from the previous CT angiogram of the neck from 07/25/2020 and suspicious for metastatic disease. 3. The patchy opacity of the right lower lobe near the costophrenic angle could be associated with infectious process. 4. Nonspecific hypoattenuating area in the left lobe of the liver. Cannot exclude metastatic disease. Chest CT 01/07/21 05:55 IMPRESSION: 1. Abnormal appearance of the uterus with heterogeneous irregular thickening of the endometrium. This is suspicious for neoplasm. 2. Multiple pulmonary nodules are identified. These are new/increased from the previous CT angiogram of the neck from 07/25/2020 and suspicious for metastatic disease. 3. The patchy opacity of the right lower lobe near the costophrenic angle could be associated with infectious process. 4. Nonspecific hypoattenuating area in the left lobe of the liver. Cannot exclude metastatic disease. Assessment and Plan (1) Aspiration pneumonia: Status: Acute (2) Swallowing difficulty: Status: Acute (3) Sepsis: Status: Acute (4) Acute respiratory failure with hypoxia: Status: Acute right lower extremity weakness +4 to +5 with normal sensation, right upper extremity weakness +3 power, cranial nerves within normal. Acute hypoxic respiratory failure Sepsis lactic acidosis Secondary to aspiration pneumonia CT scan showing right lower lobe infiltrate Blood culture sent Started on IV Zosyn Speech therapy evaluation Started on modified diet and nectar thick fluids Hypokalemia Potassium level of 2.8 Replacement given Suspected Uterine malignancy CT scan showing irregular thickening of endometrium Pulmonary nodules Concern for metastatic disease in comparison with previous CT scan Patient does not want to discuss malignancy treatment or investigation at this point History CVA Continue aspirin and Plavix Continue statin Hypertension Continue amlodipine and metoprolol DVT Heparin
--- NOTE | 2021-01-07 15:21 | MHC.CM.PN ---
Patient is LTC at [facility] and likely dc plan is for Patient to return there, but CM will follow for possible need to adjust the dc plan.
--- NOTE | 2021-01-07 15:32 | MHC.CM.PN ---
CM was able to speak with /HCP/Yunior, who has confirmed the Patient is a LTC Resident at [facility] and the goal indeed is for Patient to return there at time of dc. CM will follow.
--- NOTE | 2021-01-07 15:36 | PM.GYNCN ---
SAP BPC ARCHITECT - CN: HPI Data of Consult Consult date: 01/07/21 Requesting Physician: Deshaun Rios MD Primary Care Provider: Unknown Physician Consult Narrative Narrative: Tatiana Gillespie is a 85 year old female with PMH of HTN, HLD, CVA who presented to the hospital with complaints of abdominal pain, nausea and vomiting for 1 day prior to admission. Chest CT ordered in the emergency room was consistent with right lower lobe aspiration pneumonia. ObGyn was consulted because CTAP showed irregular heterogeneous endometrial thickening measuring. Diffuse septations noted. Additionally, pulmonary nodules and an area of liver hypoattenuation were noted and found to be concerning for possible metastatic disease. Ms. Gillespie denies any history of vaginal bleeding. 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 Mother No problems noted. Surgical History Surgical History History of cholecystectomy History of nephrolithotomy with removal of calculi Social History Social History Household Members: Spouse Housing: Alf Do you presently have visiting nurse or other home services: Yes Unable to assess alcohol history related to: Unknown Alcohol intake: never Smoking Status: Never smoker Use of substances other than those prescribed or required for medical reasons: No Have you been hit, kicked, punched, or otherwise hurt by someone within the past year? If so, by whom?: No Do you feel safe in your current relationship?: Yes Is there a partner from a previous relationship who is making you feel unsafe now?: No Are you made to feel afraid or neglected: No Advance Directives: No Advance Directives Information Provided: No Do you have thoughts of harming others: None Do you have a plan to hurt others: No Plan Recently lost weight without trying: Unsure service: No Current occupational status: retired Meds Allergies Allergy/AdvReac Type Severity Reaction Status Date / Time egg [EGG] Allergy Unknown UNKNOWN Verified 05/29/20 09:45 STREPTOMYCES ANTIBIOTICUS Allergy Unknown UNKNOWN Uncoded 05/22/20 16:39 DRVD Active Medications: Current Medications Generic Name Dose Route Start Last Admin Trade Name Freq PRN Reason Stop Dose Admin Acetaminophen 650 mg 01/07/21 13:02 Acetaminophen 325 Mg Tablet PO Q6H PRN Pain, Mild (Pain Scale 1-3) Al Hydroxide/Mg Hydroxide 30 ml 01/07/21 13:02 Magnesium Hydrox/Alum Hydrox 30 Ml Oral.Susp PO Q4H PRN Heartburn/Nausea Amlodipine Besylate 10 mg 01/08/21 09:00 Amlodipine Besylate 10 Mg Tablet PO DAILY [facility] Protocol Atorvastatin Calcium 80 mg 01/07/21 21:00 Atorvastatin Calcium 80 Mg Tablet PO BEDTIME [facility] Clopidogrel Bisulfate 75 mg 01/08/21 09:00 Clopidogrel Bisulfate 75 Mg Tablet PO DAILY [facility] Heparin Sodium (Porcine) 5,000 unit 01/07/21 13:02 01/07/21 14:19 Heparin Sodium,Porcine 5,000 Unit/Ml Vial SUBCUT 5,000 unit Q8H [facility] Administration Piperacillin Sod/Tazobactam 50 mls @ 100 mls/hr 01/07/21 13:02 01/07/21 15:07 Sod 3.375 gm/ Sodium Chloride IV Infused Q6H [facility] Infusion Metoprolol Succinate 50 mg 01/07/21 13:02 01/07/21 14:19 Metoprolol Succinate Er 50 Mg Tab.Er.24h PO 50 mg DAILY [facility] Administration Protocol Ondansetron HCl 4 mg 01/07/21 13:02 Ondansetron Hcl 4 Mg/2 Ml Vial IVPUSH Q8H PRN Nausea and Vomiting Sodium Chloride 3 ml 01/07/21 16:00 0.9 % Sodium Chloride Flush 3 Ml Syringe IVFLUSH QSHIFT [facility] Home Medications Medication Instructions Recorded Confirmed Last Taken Type amlodipine 10 mg PO DAILY 01/07/21 01/07/21 Unknown History SAP BPC ARCHITECT Physical Exam Vitals Vital signs: Temp Pulse Resp BP Pulse Ox 98.3 F 97 18 128/59 L 100 01/07/21 15:01 01/07/21 15:01 01/07/21 15:01 01/07/21 15:01 01/07/21 15:01 Body Mass Index 25.1 Brass Bobbin Winder: Other (No employee development specialist present; we had a discussion only) Psychiatric Orientation: to time, to place and to person Mood and Affect: normal mood Skin Appearance: No rashes [facility] BPC ARCHITECT - Results Labs CBC & Chem 7: 01/07/21 05:14 01/07/21 05:14 Labs: Short CBC 01/07/21 Range/Units 05:14 WBC 22.9 H (4.8-10.8) X10*3/uL Hgb 12.7 (12.0-16.0) g/dl Hct 38.5 (37-47) % Plt Count 481 H (160-400) X10*3/uL BMP 01/07/21 05:14 Sodium 142 Potassium 2.8 L D Chloride 102 Carbon Dioxide 25 BUN 16 Creatinine 0.74 Calcium 9.6 D Liver Function 01/07/21 Range/Units 05:14 Total Bilirubin 0.3 (0.0-1.0) mg/dL AST 18 (5-31) U/L ALT 15 (0-31) U/L Alkaline Phosphatase 75 (39-117) U/L Albumin 4.0 (3.5-5.0) g/dL Assessment and Plan (1) Abnormal endometrial ultrasound: Status: Acute I reviewed with Ms. Gillespie the findings of her CT scan, including the concern for possible endometrial cancer with metastases. I explained that typically, if a thickened endometrial lining is incidentally discovered on imaging in the absence of vaginal bleeding, no further testing is recommended. However, given the concern for possible metastases and given the abnormal appearance with septations, I would recommend further diagnostic testing to confirm/rule out cancer. I reviewed the options for evaluation including endometrial sampling with endometrial biopsy which can be done in the office (or hospital while she is admitted) or hysteroscopy D&C in the operating room, including the benefits associated with each. She asked me whether these tests were necessary and I explained that the answer depends on her. I reviewed that some patients prioritize living as long as possible and would want to know if they had cancer so that they could have it treated. I explained that treatment of endometrial cancer typically requires major surgery. I explained that sometimes, patients feel that if they had cancer, they would not want treatment for it like major surgery. If she does not want treatment, than diagnostic testing may not be beneficial. She advised me that she is very old and she prefers not to have further diagnostic testing at this time. I advised her that if she changes her mind or would like to discuss this further, she can let her nurse or doctor know at any time and I can come back to talk to her.
[2021-01-07] MEDS: 0.9 % Sodium Chloride Flush 3 ML SYRINGE IVFLUSH (16:31)
[2021-01-07] MEDS: Atorvastatin Calcium 80 MG TABLET PO (21:32)
[2021-01-08] MEDS: 0.9 % Sodium Chloride Flush 3 ML SYRINGE IVFLUSH ×3 (00:49→17:12)
[2021-01-08] MEDS: Piperacillin Sodium/Tazobactam 3.375 GM in 0.9 % Sodium Chloride 50 ML IV ×4 (01:04→19:06)
[2021-01-08 03:55] VITALS: BP 117/57; PULSE 79; RESP 15; TEMP 36.7; O2SAT 95
[2021-01-08] MEDS: Heparin Sodium,Porcine 5,000 UNIT/ML VIAL 5000 UNIT SUBCUT (04:46)
[2021-01-08 07:00] LABS: MANUAL DIFF FLAG NO
[2021-01-08 07:08] LABS: Basophils Absolute Auto 0.1 X10*3/uL (0.0-0.2); Basophils Percent Auto 0.6 % (0-2); Eosinophils Absolute Auto 0.1 X10*3/uL (0.0-0.4); Eosinophils Percent Auto 0.3 % (0-4); Hematocrit 33.1 % (37-47); Hemoglobin 10.6 g/dl (12.0-16.0); Imm Gran Abs Auto 0.08 X10*3/uL (0.00-0.03); Imm Gran Pct Auto 0.5 % (0.0-0.4); Lymphocytes Absolute Auto 2.3 X10*3/uL (1.2-4.9); Lymphocytes Percent Auto 12.8 % (20-40); Mean Corpuscular Hemoglobin 30.5 pg (27.0-33.0); Mean Corpuscular Volume 95.4 fL (80-98); Mean Platelet Volume 9.8 fL (9.4-12.3); Monocytes Percent Auto 5.7 % (2-11); Neutrophils Absolute Auto 14.1 X10*3/uL (2.0-8.3); Neutrophils Percent Auto 80.1 % (45-73); Platelet Count 423 X10*3/uL (160-400); Red Blood Count 3.47 X10*6/uL (4.20-5.50); White Blood Count 17.6 X10*3/uL (4.8-10.8)
[2021-01-08 07:31] LABS: Blood Urea Nitrogen 10 mg/dL (9-16); Creatinine Clr Calc Pharmacy 50.6; Estimated Glomerular Filt Rate > 60; Glucose Random 90 mg/dL (60-115)
[2021-01-08 07:46] VITALS: BP 114/57; PULSE 80; RESP 18; TEMP 36.4; O2SAT 95
[2021-01-08 08:02] LABS: Anion Gap 17 (12-20); Calcium 8.7 mg/dL (8.4-10.2); Carbon Dioxide 24 mmol/L (22-29); Chloride 104 mmol/L (96-108); Potassium 4.3 mmol/L (3.3-5.1); Sodium 141 mmol/L (135-145)
[2021-01-08] MEDS: Metoprolol Succinate ER 50 MG TAB.ER.24H PO (10:17)
[2021-01-08] MEDS: amLODIPine Besylate 10 MG TABLET PO (10:18)
--- NOTE | 2021-01-08 11:01 | HO.PM.IMPN ---
Subjective Subjective Date of Service: 01/08/21 Interval History: the patient was seen and evaluated this morning Laying in bed, feels tired with no energy and does not want to do much about her ongoing medical problems Still complaining of nausea and episodes of vomiting which were mainly yesterday's in this morning Denies any fever, chills or chest pain today No reported other overnight events. Review of Systems No fever, complaining of chills and weakness No chest pain, palpitation Having mild difficulty breathing and reported coughing while swallowing No abdominal pain, nausea or vomiting No urinary symptoms No any rash or wounds Physical Exam Vital Signs: Vital Signs: Last Vital Signs Temp 97.6 F 01/08/21 07:46 Pulse 80 01/08/21 07:46 Resp 18 01/08/21 07:46 BP 114/57 L 01/08/21 07:46 Pulse Ox 95 01/08/21 07:46 Body Mass Index 25.1 Const: Other: Constitutional : Alert, oriented, not in distress Neck : Normal inspection, Supple Cardiovascular : RRR, S1 S2, no lower extremity edema Respiratory : bilateral air entry, right lower lobe crackles, wheezes or rhonchi Gastrointestinal: soft, lax, Normal bowel sounds, Non tender Skin : Warm/Dry, No rash Neurological : Alert & oriented x3, right lower extremity weakness +4 to +5 with normal sensation, right upper extremity weakness +3 power, cranial nerves within normal. Objective Data Current Medications Generic Name Dose Route Start Last Admin Trade Name Freq PRN Reason Stop Dose Admin Acetaminophen 650 mg 01/07/21 13:02 Acetaminophen 325 Mg Tablet PO Q6H PRN Pain, Mild (Pain Scale 1-3) Al Hydroxide/Mg Hydroxide 30 ml 01/07/21 13:02 Magnesium Hydrox/Alum Hydrox 30 Ml Oral.Susp PO Q4H PRN Heartburn/Nausea Amlodipine Besylate 10 mg 01/08/21 09:00 01/08/21 10:18 Amlodipine Besylate 10 Mg Tablet PO 10 mg DAILY MARIANA Administration Protocol Atorvastatin Calcium 80 mg 01/07/21 21:00 01/07/21 21:32 Atorvastatin Calcium 80 Mg Tablet PO 80 mg BEDTIME MARIANA Administration Piperacillin Sod/Tazobactam 50 mls @ 100 mls/hr 01/07/21 13:02 01/08/21 07:03 Sod 3.375 gm/ Sodium Chloride IV Infused Q6H MARIANA Infusion Metoprolol Succinate 50 mg 01/07/21 13:02 01/08/21 10:17 Metoprolol Succinate Er 50 Mg Tab.Er.24h PO 50 mg DAILY MARIANA Administration Protocol Ondansetron HCl 4 mg 01/07/21 13:02 Ondansetron Hcl 4 Mg/2 Ml Vial IVPUSH Q8H PRN Nausea and Vomiting Sodium Chloride 3 ml 01/07/21 16:00 01/08/21 10:18 0.9 % Sodium Chloride Flush 3 Ml Syringe IVFLUSH 3 ml QSHIFT MARIANA Administration Labs CBC & Chem 7: 01/08/21 05:37 01/08/21 05:37 Microbiology Microbiology Results: Microbiology 01/07/21 05:16 Blood - Venous Blood Culture - Preliminary 01/07/21 05:16 Blood - Venous Blood Culture - Preliminary Assessment and Plan (1) Aspiration pneumonia: Status: Acute (2) Swallowing difficulty: Status: Acute (3) Sepsis: Status: Acute (4) Acute respiratory failure with hypoxia: Status: Acute Assessment and Plan: An 85 years old lady with PMH of HTN, HLD, CVA who presents to the hospital with complaint of abdominal pain, nausea and vomiting for 1 day prior to admission. Acute hypoxic respiratory failure Sepsis lactic acidosis, resolved Secondary to aspiration pneumonia CT scan showing right lower lobe infiltrate Blood culture pending Continue on IV Zosyn Speech therapy evaluation Started on modified diet and nectar thick fluids Acute on chronic anemia Hemoglobin dropped to 10 from baseline of 12 pending occult blood Hold Plavix and heparin Monitor H&H Hypokalemia Improved Replacement given Uterine lesion CT scan showing irregular thickening of endometrium Gynecology discussed with the patient who opted not to investigate current findings Pulmonary nodules Concern for metastatic disease in comparison with previous CT scan Patient does not want to discuss malignancy treatment or investigation at this point History CVA Continue aspirin and Plavix Continue statin Hypertension Continue amlodipine and metoprolol DVT SCD
[2021-01-08 11:03] VITALS: BP 139/63; PULSE 84; RESP 18; TEMP 36.2; O2SAT 98
[2021-01-08 11:50] VITALS: BMI 25.1
--- NOTE | 2021-01-08 11:54 | MHC.CLN ---
RE: CONSULT PT RECEIVING 2GM NA DIET PUREED WITH NT LIQ-RECOMMEND LIBERALIZED DIET R/T ADVANCED AGE AND DX SPORT INTERNSHIP FOLLOWING FOR APPROPRIATE DIET CONSISTENCY RECOMMEND ADDING ENSURE BID TO INCREASE KCALS SUPPLEMENT TO PROVIDE 700KCALS, 40G PROTEIN MONITOR PO INTAKE CLOSELY SEE ALSO CLINICAL NUTRITION ASSESSMENT
--- NOTE | 2021-01-08 13:22 | MHC.CM.PN ---
Per ROUNDS discussion, Patient is not yet medically cleared for dc (C/O N/V,IV Zosyn). Plan for dc is to return to LTC at [facility] and CM will continue to follow for dc planning.
--- NOTE | 2021-01-08 13:50 | MHC.SL.SWA ---
Speech Pathologist Impression: Risk of Aspiration Oralpharyngeal Dysphagia Risk of Aspiration Due to: Neurological Condition History of Pneumonia Reduced Cognition Dysphasia Diet Status: Upgrade Liquid Consistency and Strategies for Safe Swallow: Liquid Intake Recommendation: Bouse Thick Liquid Intake Strategies: Small Sips No Straws Solid Food Consistency: Dietary Recommendations: Grnd/Mech Altered (NDD2) Additional Modifications to Solid Foods: avoid tough/sticky/dry foods avoid mixed consistencies (i.e. cereal with milk; soup with thin broth) Oral Medication Intake: Whole with Puree Compensatory Strategies and Precautions to be Taken for Safe Swallow: Sitting Upright (90 deg) No Straw Liquids from Cup Liquids from Spoon Small Bites and Sips Alternate Liquids/Solids Rate of Ingestion Change Avoid Specific Foods Supervision While Eating and Drinking for Safe Swallow: Intermittent Supervision Foods to Avoid: tough/dry/sticky foods avoid mixed consistencies (i.e. cereal with milk; soup with thin broth) Swallowing Recommended Treatments: Compens. Strategy Educat. Recommendation for Speech: Inpatient Speech Therapy Comment: Coughing after drinking thin liquid. Patient has two teeth, one on each side. Mastication was prolonged, but patient was able to mash recommended consistency. Per nurse at SNF, patient is reportedly on a regular unmodified diet at baseline. Plan to continue following patient to re-assess tolerance and potential for upgrade. Patient is mostly aphonic. Voice sounds strangled/strained and breathy. ? vocal fold paralysis. Recommend referral to dental hygienist. Collection Analyst Clinican/Clinical Fellow: No Supervisory Statement: I have reviewed and agree with the student/clinical fellow's documentation: N/A Speech Language Pathologist: Lilia Aguillon M.A., CCC-CHANNEL DEVELOPMENT DIRECTOR
[2021-01-08 15:35] VITALS: BP 123/58; PULSE 82; RESP 19; TEMP 36.4; O2SAT 98
[2021-01-08 19:14] VITALS: BP 120/62; PULSE 85; RESP 18; TEMP 36.8; O2SAT 97
[2021-01-08] MEDS: Atorvastatin Calcium 80 MG TABLET PO (20:06)
[2021-01-08 23:28] VITALS: BP 114/59; PULSE 80; RESP 18; TEMP 36.4; O2SAT 99
[2021-01-09] VITALS (7 sets, daily range): BP systolic 115–132; BP diastolic 57–80; PULSE 77–95; RESP 16–18; TEMP 35.7–36.9; O2SAT 96–100
[2021-01-09] MEDS: 0.9 % Sodium Chloride Flush 3 ML SYRINGE IVFLUSH ×3 (00:57→16:42)
[2021-01-09] MEDS: Piperacillin Sodium/Tazobactam 3.375 GM in 0.9 % Sodium Chloride 50 ML IV ×4 (00:57→18:11)
[2021-01-09] MEDS: Metoprolol Succinate ER 50 MG TAB.ER.24H PO (09:07)
[2021-01-09] MEDS: amLODIPine Besylate 10 MG TABLET PO (09:08)
--- NOTE | 2021-01-09 10:38 | MHC.SL.SWA ---
Speech Pathologist Impression: Risk of Aspiration Oralpharyngeal Dysphagia Risk of Aspiration Due to: Neurological Condition History of Pneumonia Reduced Cognition Dysphasia Diet Status: Upgrade Liquid Consistency and Strategies for Safe Swallow: Liquid Intake Recommendation: Thin Liquid Intake Strategies: Small Sips No Straws Solid Food Consistency: Dietary Recommendations: Grnd/Mech Altered (NDD2) Additional Modifications to Solid Foods: avoid tough/sticky/dry foods avoid mixed consistencies (i.e. cereal with milk; soup with thin broth) Oral Medication Intake: Whole with Puree Compensatory Strategies and Precautions to be Taken for Safe Swallow: Sitting Upright (90 deg) No Straw Liquids from Cup Liquids from Spoon Small Bites and Sips Alternate Liquids/Solids Rate of Ingestion Change Avoid Specific Foods Supervision While Eating and Drinking for Safe Swallow: Intermittent Supervision Foods to Avoid: tough/dry/sticky foods avoid mixed consistencies (i.e. cereal with milk; soup with thin broth) Swallowing Recommended Treatments: Compens. Strategy Educat. Recommendation for Speech: Inpatient Speech Therapy Comment: Patient has two teeth, one on each side. Mastication was prolonged, but patient was able to mash recommended consistency. No overt s/s of aspiration with PO trials. Per nurse at SNF, patient is reportedly on a regular unmodified diet at baseline. If no improvement in overall condition, patient may benefit from MBSS to rule in/out silent aspiration. Nitrator Operator Clinican/Clinical Fellow: No Supervisory Statement: I have reviewed and agree with the student/clinical fellow's documentation: N/A Speech Language Pathologist: Lilia Aguillon M.A., CCC-METER ATTENDANT
[2021-01-09 11:16] LABS: Hematocrit 34.6 % (37-47); Hemoglobin 11.4 g/dl (12.0-16.0); Mean Corpuscular HGB Conc 32.9 g/dl (31.0-35.0); Mean Corpuscular Hemoglobin 31.1 pg (27.0-33.0); Mean Corpuscular Volume 94.5 fL (80-98); Mean Platelet Volume 9.1 fL (9.4-12.3); Platelet Count 421 X10*3/uL (160-400); Red Blood Count 3.66 X10*6/uL (4.20-5.50); Red Cell Distribution Width 13.7 % (11.0-16.0); White Blood Count 11.4 X10*3/uL (4.8-10.8)
--- NOTE | 2021-01-09 12:56 | MHC.CM.PN ---
Per discussion with Medical, Patient will be medically cleared for dc to SNF today.Patient is LTC @ at [facility] and she will return there today at 2PM, via [facility]. Patient//Yunior @ [phone] has been made aware of and is in agreement with the dc plan. Last IMM addressed on 01/07/21.
--- NOTE | 2021-01-09 13:19 | MHC.CM.PN ---
Scheduled dc for today has been cancelled (Positive blood cultures/must wait for sensitivities). CM will follow.
--- NOTE | 2021-01-09 13:22 | HO.PM.IMPN ---
Subjective Subjective Date of Service: 01/09/21 Interval History: seen and examined this morning ongoing cough, but denies shortness of breath or fever no overnight events Review of Systems Review of Systems: Yes all other systems are reviewed and are negative Constitutional Constitutional: Denies chills and Denies fever(s) Cardiovascular Cardiovascular: Denies chest pain Gastrointestinal Gastrointestinal: Denies abdominal pain Physical Exam Vital Signs: Vital Signs: Last Vital Signs Temp 96.2 F L 01/09/21 11:06 Pulse 77 01/09/21 11:06 Resp 16 01/09/21 11:06 BP 132/61 01/09/21 11:06 Pulse Ox 96 01/09/21 11:06 Body Mass Index 25.1 Const: General: no acute distress, alert and awake Nutritional Appearance: well nourished and thin HENMT: Head: Yes normocephalic and Yes atraumatic Eyes: Sclerae: sclerae normal Resp: Effort & Inspection: normal respiratory effort and no respiratory distress Cardio: Rate: regular rate Rhythm: regular rhythm GI: Palpation (GI): Soft to palpation and nontender Neuro: Cranial nerves: Yes CN's II-XII intact bilaterally and Yes Bilaterally intact EOM present Objective Data Current Medications Generic Name Dose Route Start Last Admin Trade Name Freq PRN Reason Stop Dose Admin Acetaminophen 650 mg 01/07/21 13:02 Acetaminophen 325 Mg Tablet PO Q6H PRN Pain, Mild (Pain Scale 1-3) Al Hydroxide/Mg Hydroxide 30 ml 01/07/21 13:02 Magnesium Hydrox/Alum Hydrox 30 Ml Oral.Susp PO Q4H PRN Heartburn/Nausea Amlodipine Besylate 10 mg 01/08/21 09:00 01/09/21 09:08 Amlodipine Besylate 10 Mg Tablet PO 10 mg DAILY MARIANA Administration Protocol Atorvastatin Calcium 80 mg 01/07/21 21:00 01/08/21 20:06 Atorvastatin Calcium 80 Mg Tablet PO 80 mg BEDTIME MARIANA Administration Piperacillin Sod/Tazobactam 50 mls @ 100 mls/hr 01/07/21 13:02 01/09/21 09:38 Sod 3.375 gm/ Sodium Chloride IV Infused Q6H MARIANA Infusion Metoprolol Succinate 50 mg 01/07/21 13:02 01/09/21 09:07 Metoprolol Succinate Er 50 Mg Tab.Er.24h PO 50 mg DAILY MARIANA Administration Protocol Ondansetron HCl 4 mg 01/07/21 13:02 Ondansetron Hcl 4 Mg/2 Ml Vial IVPUSH Q8H PRN Nausea and Vomiting Pharmacy Consult 1 each 01/09/21 13:13 Consult Rx Vancomycin Dosing MISCELLANE DAILY PRN Consult order Sodium Chloride 3 ml 01/07/21 16:00 01/09/21 09:04 0.9 % Sodium Chloride Flush 3 Ml Syringe IVFLUSH 3 ml QSHIFT [facility] Administration Labs CBC & Chem 7: 01/09/21 11:00 01/08/21 05:37 Microbiology Microbiology Results: Microbiology 01/07/21 05:16 Blood - Venous Blood Culture - Preliminary Gram positive cocci 01/07/21 05:16 Blood - Venous Blood Culture - Preliminary Gram positive cocci Assessment and Plan (1) Aspiration pneumonia: Status: Acute (2) Swallowing difficulty: Status: Acute (3) Sepsis: Status: Acute (4) Acute respiratory failure with hypoxia: Status: Acute Assessment and Plan: An 85 years old lady with PMH of HTN, HLD, CVA who presents to the hospital with complaint of abdominal pain, nausea and vomiting for 1 day prior to admission. Acute hypoxic respiratory failure Sepsis lactic acidosis, resolved Secondary to aspiration pneumonia CT scan showing right lower lobe infiltrate Blood culture pending Continue on IV Zosyn Speech therapy evaluation Started on modified diet and nectar thick fluids Acute on chronic anemia Hemoglobin dropped to 10 from baseline of 12 pending occult blood Hold Plavix and heparin Monitor H&H Hypokalemia Improved Replacement given Uterine lesion CT scan showing irregular thickening of endometrium Gynecology discussed with the patient who opted not to investigate current findings Pulmonary nodules Concern for metastatic disease in comparison with previous CT scan Patient does not want to discuss malignancy treatment or investigation at this point History CVA Continue aspirin and Plavix Continue statin Hypertension Continue amlodipine and metoprolol DVT SCD (5) Bacteremia: Status: Acute Assessment and Plan: this is an 85 year old lady with PMH of HTN, HLD, CVA who presents to the hospital with complaint of abdominal pain, nausea and vomiting for 1 day prior to admission found to have hypoxia secondary to aspiration pneumonia as well as uterine lesion.. Acute hypoxic respiratory failure Sepsis lactic acidosis, resolved Secondary to aspiration pneumonia CT scan showing right lower lobe infiltrate Blood cultures + seen by speech, Started on modified diet and thin liqs Gram + bacteremia Blood cultures growing 2/2 gram-positive cocci in clusters -start vancomycin -repeat blood cultures -echocardiogram -ID consultation Acute on chronic anemia H/H stable pending occult blood Hold Plavix/asa Hypokalemia Improved Replacement given Uterine lesion CT scan showing irregular thickening of endometrium Gynecology discussed with the patient. Initially declined investigation, now agrees. Plan for outpatient follow-up Pulmonary nodules Concern for metastatic disease in comparison with previous CT scan Plan for outpatient follow-up History CVA -continue Plavix Continue statin Hypertension Continue amlodipine and metoprolol DVT -SCD boots code status - full Attending-Dr. Reed
--- NOTE | 2021-01-09 13:26 | MHC.CLN ---
RE: CONSULT PO INTAKE REMAINS POOR DIET RX: GRD M/S -APPROPRIATE GARNISHMENT SPECIALIST FOLLOWING FOR APPROPRIATE DIET CONSISTENCY-D/C NT LIQ AND UPGRADED CONSISTENCY 01/09 PT RECEIVING ENSURE BID TO INCREASE KCALS SUPPLEMENT TO PROVIDE 700KCALS, 40G PROTEIN MONITOR PO INTAKE CLOSELY WILL ADD FATUMA BID TO PROMOTE WOUND HEALING UPDATED CLINICAL NUTRITION ASSESSMENT
--- NOTE | 2021-01-09 13:40 | P.CONWO_ITS ---
History of Present Illness Data of Consult Service Date: 01/09/21 Requesting physician: Deshaun Rios Primary Care Provider: Lionel Garcia MD HPI Reason for consult: coccyx wound this is an 85-year-old female with history of recent CVA who presented to the ED with complaints of abdominal pain nausea and vomiting. Workup revealed a right lower lobe pneumonia. She was admitted for treatment. On admission, she was noted to have a small wound in the coccyx region. She is not sure about the etiology. She reports no pain associated with it. 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 Mother No problems noted. Surgical History History of cholecystectomy History of nephrolithotomy with removal of calculi Social History Household Members: Spouse Housing: Detention Do you presently have visiting nurse or other home services: Yes Unable to assess alcohol history related to: Unknown Alcohol intake: never service: No Current occupational status: retired Meds Allergies Allergy/AdvReac Type Severity Reaction Status Date / Time egg [EGG] Allergy Unknown UNKNOWN Verified 05/29/20 09:45 STREPTOMYCES ANTIBIOTICUS Allergy Unknown UNKNOWN Uncoded 05/22/20 16:39 DRVD Active Medications: Current Medications Generic Name Dose Route Start Last Admin Trade Name Freq PRN Reason Stop Dose Admin Acetaminophen 650 mg 01/07/21 13:02 Acetaminophen 325 Mg Tablet PO Q6H PRN Pain, Mild (Pain Scale 1-3) Al Hydroxide/Mg Hydroxide 30 ml 01/07/21 13:02 Magnesium Hydrox/Alum Hydrox 30 Ml Oral.Susp PO Q4H PRN Heartburn/Nausea Amlodipine Besylate 10 mg 01/08/21 09:00 01/09/21 09:08 Amlodipine Besylate 10 Mg Tablet PO 10 mg DAILY MARIANA Administration Protocol Atorvastatin Calcium 80 mg 01/07/21 21:00 01/08/21 20:06 Atorvastatin Calcium 80 Mg Tablet PO 80 mg BEDTIME MARIANA Administration Piperacillin Sod/Tazobactam 50 mls @ 100 mls/hr 01/07/21 13:02 01/09/21 09:38 Sod 3.375 gm/ Sodium Chloride IV Infused Q6H MARIANA Infusion Vancomycin HCl 1,500 mg/ 500 mls @ 333.333 mls/hr 01/09/21 14:00 Sodium Chloride IV 01/09/21 15:29 ONCE ONE Vancomycin HCl 1,250 mg/ 250 mls @ 166.667 mls/hr 01/10/21 14:00 Sodium Chloride IV Q24H MARIANA Metoprolol Succinate 50 mg 01/07/21 13:02 01/09/21 09:07 Metoprolol Succinate Er 50 Mg Tab.Er.24h PO 50 mg DAILY MARIANA Administration Protocol Ondansetron HCl 4 mg 01/07/21 13:02 Ondansetron Hcl 4 Mg/2 Ml Vial IVPUSH Q8H PRN Nausea and Vomiting Pharmacy Consult 1 each 01/09/21 13:13 Consult Rx Vancomycin Dosing MISCELLANE DAILY PRN Consult order Sodium Chloride 3 ml 01/07/21 16:00 01/09/21 09:04 0.9 % Sodium Chloride Flush 3 Ml Syringe IVFLUSH 3 ml QSHIFT [facility] Administration Home Medications Medication Instructions Recorded Confirmed Last Taken Type amlodipine 10 mg PO DAILY 01/07/21 01/07/21 Unknown History Physical Exam Vital Signs and Narrative: Vital Signs: Last Vital Signs Temp 96.2 F L 01/09/21 11:06 Pulse 77 01/09/21 11:06 Resp 16 01/09/21 11:06 BP 132/61 01/09/21 11:06 Pulse Ox 96 01/09/21 11:06 Body Mass Index 25.1 Const: General: no acute distress, alert and ill appearing Skin: Other: oval 0.6 by 0.4 by 0.15 cm stage 2 wound overlying tip of coccyx, no surrounding erythema Results Labs CBC and Chem 7: 01/09/21 11:00 01/08/21 05:37 Labs: Laboratory Results - last 24 hr 01/09/21 11:00 MCV 94.5 MCH 31.1 MCHC 32.9 RDW 13.7 Plt Count 421 H MPV 9.1 L Absolute Nucleated RBC 0.000 Nucleated RBC % (auto) 0.0 Assessment and Plan (1) Pressure ulcer of coccygeal region, stage 2: Status: Acute 85-year-old female with stage II pressure ulcer of coccyx region, present on admission. Nutrition appears adequate. Albumin 4.0. Continue to provide pressure relief, recommend daily cleansing with saline solution, barrier cream to intact skin edges and Alevyn foam dressing.
--- NOTE | 2021-01-09 14:00 | CA_ITS ---
Transthoracic Echocardiogram Patient (Last, First, Middle): Tatiana Gillespie E Gender: Female Date of : 1935 Age: 85 Procedure Date: 01/09/2021 Procedure Type: Transthoracic Echocardiogram [place] [facility] [place] Height: 154.94 cm Weight: 59.88 kg BSA: 1.58 m2 Heart Rate: bpm BP: 132 / 61 mmHg Senior Controls Technician: TERRANCE Negro MD: Carla PUENTES Symptoms: gram + bacteremia Study Quality: Technically Difficult ECG Rhythm: Sinus Conclusions: - The left ventricular systolic function is normal. The visually estimated ejection fraction is between 65-70%. - There is moderate mitral annular calcification. - Study quality not adequate to assess for vegetations. Findings Left Ventricle Normal left ventricular cavity size. There is mildly increased left ventricular wall thickness. The left ventricular systolic function is normal. The visually estimated ejection fraction is between 65-70%. There is no evidence of regional wall motion abnormalities. E/E prime ratio is >15, consistent with elevated filling pressures. Evidence suggests grade I (mild) diastolic dysfunction. Right Ventricle Normal right ventricular cavity size and systolic function. Atria Both atria are normal in size. Aortic Valve The aortic valve was not well visualized. There is no aortic valve regurgitation. No significant aortic stenosis. Mitral Valve There is mild anterior mitral leaflet thickening. There is moderate mitral annular calcification. There is trace mitral valve regurgitation. There is no mitral valve stenosis. Pulmonic Valve The pulmonic valve was not well visualized. Tricuspid Valve There is trace tricuspid valve regurgitation. The pulmonary artery systolic pressure is normal. Great Vessels The asc aorta is normal in size. Venous The inferior vena cava is normal in size and collapses greater than 50% with inspiration. Pericardium/Pleural There is no evidence of pericardial effusion. Prior Study Comparison No significant change compared to prior study dated: 07/24/2020. Measurements 2D Linear Measurements IVSd: 1.01 0.6-0.9/0.6-1.0 cm LVIDd: 2.93 3.9-5.3/4.2-5.9 cm LVIDd Index: 1.85 2.4-3.2/2.2-3.1 cm/m2 LVIDs: 1.99 2.0-3.6 cm LVPWd: 1.01 0.7-1.1 cm Ao Root: 2.50 2.1-3.5 cm LA Diam: 2.70 2.7-3.8/3.0-4.0 cm LAIDs Index: 1.71 1.5-2.3 cm/m2 LV Mass: 99.98 67-162/88-224 g LV Mass Index: 63.28 43-95/49-115 g/m2 LVOT Diam: 1.90 3.0+(-)1.3 cm Mitral Valve MV Pk E: 0.88 MV PK A: 1.54 MV Decel Time: 265.00 E/A: 0.60 E'Lateral: 5.22 E'Medial: 5.00 E/E' Med: 17.60 E/E' Lat: 16.90 PHT: 78.00 MVA PHT: 2.82 Decel Mcleod: 3.32 Aortic Valve AoV Pk Jordan: 1.75 AoV Mn Jordan: 1.02 AoV VTI: 0.31 AoV Pk Grad: 12.00 Aov Mn Grad: 5.00 SUNIL Cont.VTI: 1.84 LVOT LVOT Pk Jordan: 0.83 LVOT Mn Jordan: 0.61 LVOT VTI: 0.20 LVOT Pk Grad: 3.00 LVOT Mn Grad: 2.00 LVOT Diam: 1.90 LVOT Area: 2.84 Diastolic Function MV Pk E: 0.88 MV Pk A: 1.54 E/A: 0.60 E'Medial: 5.00 E/E' Med: 17.60 E' Laterial: 5.22 E/E' Lat: 16.90 Tricuspid Valve TR Pk Jordan: 2.51 TR Pk Grad: 25.00 RA Press: 3.00 RVSP: 28.00 Great Vessels Aorta Ao Root-2D: 2.50 2.0-3.7 cm Ao Asc: 2.60 2.1-3.4 cm Updated in Other Vendor System with Status of Final Nicho Lopez MD electronically signed on 01/09/2021 4:43:17 PM with status of Final
[2021-01-09] MEDS: vancomycin HCL 1,500 MG in 0.9 % Sodium Chloride 500 ML 333.33 MG IV (14:49)
[2021-01-09] MEDS: Acetaminophen 325 MG TABLET 650 MG PO (15:08)
[2021-01-09] MEDS: Atorvastatin Calcium 80 MG TABLET PO (20:30)
[2021-01-09] MEDS: Benzonatate 100 MG CAPSULE PO (21:49)
[2021-01-10] VITALS (8 sets, daily range): BP systolic 107–154; BP diastolic 53–72; PULSE 69–98; RESP 16–20; TEMP 36.1–36.9; O2SAT 93–98
[2021-01-10] MEDS: Piperacillin Sodium/Tazobactam 3.375 GM in 0.9 % Sodium Chloride 50 ML IV ×3 (00:14→12:33)
[2021-01-10] MEDS: 0.9 % Sodium Chloride Flush 3 ML SYRINGE IVFLUSH ×4 (00:15→20:43)
[2021-01-10 06:02] LABS: Hematocrit 32.9 % (37-47); Mean Corpuscular HGB Conc 33.4 g/dl (31.0-35.0); Mean Corpuscular Hemoglobin 31.3 pg (27.0-33.0); Mean Corpuscular Volume 93.7 fL (80-98); Mean Platelet Volume 9.1 fL (9.4-12.3); Platelet Count 398 X10*3/uL (160-400); Red Blood Count 3.51 X10*6/uL (4.20-5.50); Red Cell Distribution Width 13.7 % (11.0-16.0); White Blood Count 11.3 X10*3/uL (4.8-10.8)
[2021-01-10 06:19] LABS: Anion Gap 14 (12-20); Blood Urea Nitrogen 7 mg/dL (9-16); Calcium 8.3 mg/dL (8.4-10.2); Carbon Dioxide 26 mmol/L (22-29); Chloride 104 mmol/L (96-108); Creatinine Clr Calc Pharmacy 54.5; Estimated Glomerular Filt Rate > 60; Glucose Random 84 mg/dL (60-115); Sodium 141 mmol/L (135-145)
[2021-01-10] MEDS: amLODIPine Besylate 10 MG TABLET PO (08:10)
[2021-01-10] MEDS: Clopidogrel Bisulfate 75 MG TABLET PO (08:10)
[2021-01-10] MEDS: Metoprolol Succinate ER 50 MG TAB.ER.24H PO (08:10)
[2021-01-10] MEDS: Aspirin Enteric Coated 81 MG TABLET.DR PO (08:10)
--- NOTE | 2021-01-10 10:12 | MHC.SL.SWA ---
Speech Pathologist Impression: Risk of Aspiration Oralpharyngeal Dysphagia Risk of Aspiration Due to: Neurological Condition History of Pneumonia Reduced Cognition Dysphasia Diet Status: No Change Liquid Consistency and Strategies for Safe Swallow: Liquid Intake Recommendation: Thin Liquid Intake Strategies: Small Sips No Straws Solid Food Consistency: Dietary Recommendations: Grnd/Mech Altered (NDD2) Additional Modifications to Solid Foods: avoid tough/sticky/dry foods Oral Medication Intake: Whole with Puree Compensatory Strategies and Precautions to be Taken for Safe Swallow: Sitting Upright (90 deg) No Straw Liquids from Cup Liquids from Spoon Small Bites and Sips Alternate Liquids/Solids Rate of Ingestion Change Avoid Specific Foods Supervision While Eating and Drinking for Safe Swallow: Intermittent Supervision Foods to Avoid: tough/dry/sticky foods Swallowing Recommended Treatments: Compens. Strategy Educat. Recommendation for Speech: Patient appears to be on appropriate diet textures. Further ST intervention is no longer warranted. Please re-refer if there are any changes or if HIGHWAY TECHNICIAN can be of further assistance. Comment: Patient has two teeth, one on each side. Mastication was prolonged, but patient was able to mash recommended consistency. No overt s/s of aspiration with PO trials. Per nurse at SNF, patient is reportedly on a regular unmodified diet at baseline. If no improvement in overall condition, patient may benefit from MBSS to rule in/out silent aspiration. Audit Clerk Clinican/Clinical Fellow: No Supervisory Statement: I have reviewed and agree with the student/clinical fellow's documentation: N/A Speech Language Pathologist: Lilia Aguillon M.A., CCC-HIGHWAY TECHNICIAN
--- NOTE | 2021-01-10 12:58 | HO.PM.IMPN ---
Subjective Subjective Date of Service: 01/10/21 Interval History: seen and examined this morning resting in bed, appears comfortable dry cough, no fever, chills or sob Review of Systems Review of Systems: Yes all other systems are reviewed and are negative Constitutional Constitutional: Denies chills and Denies fever(s) Cardiovascular Cardiovascular: Denies chest pain Respiratory Respiratory: Reports cough Gastrointestinal Gastrointestinal: Denies abdominal pain Physical Exam Vital Signs: Vital Signs: Last Vital Signs Temp 97.1 F 01/10/21 11:30 Pulse 81 01/10/21 11:30 Resp 18 01/10/21 11:30 BP 142/66 H 01/10/21 11:30 Pulse Ox 96 01/10/21 11:30 Body Mass Index 25.1 Const: General: no acute distress, alert and awake Nutritional Appearance: well nourished and thin HENMT: Head: Yes normocephalic and Yes atraumatic Eyes: Sclerae: sclerae normal Resp: Effort & Inspection: normal respiratory effort and no respiratory distress Cardio: Rate: regular rate Rhythm: regular rhythm GI: Palpation (GI): Soft to palpation and nontender Neuro: Cranial nerves: Yes CN's II-XII intact bilaterally and Yes Bilaterally intact EOM present Extrem: Other: no edema Objective Data Current Medications Generic Name Dose Route Start Last Admin Trade Name Freq PRN Reason Stop Dose Admin Acetaminophen 650 mg 01/07/21 13:02 01/09/21 15:08 Acetaminophen 325 Mg Tablet PO 650 mg Q6H PRN Administration Pain, Mild (Pain Scale 1-3) Al Hydroxide/Mg Hydroxide 30 ml 01/07/21 13:02 Magnesium Hydrox/Alum Hydrox 30 Ml Oral.Susp PO Q4H PRN Heartburn/Nausea Amlodipine Besylate 10 mg 01/08/21 09:00 01/10/21 08:10 Amlodipine Besylate 10 Mg Tablet PO 10 mg DAILY MARIANA Administration Protocol Aspirin 81 mg 01/10/21 09:00 01/10/21 08:10 Aspirin Enteric Coated 81 Mg Tablet.Dr PO 81 mg DAILY MARIANA Administration Atorvastatin Calcium 80 mg 01/07/21 21:00 01/09/21 20:30 Atorvastatin Calcium 80 Mg Tablet PO 80 mg BEDTIME MARIANA Administration Benzonatate 100 mg 01/09/21 20:43 01/09/21 21:49 Benzonatate 100 Mg Capsule PO 100 mg TID PRN Administration Cough Clopidogrel Bisulfate 75 mg 01/10/21 09:00 01/10/21 08:10 Clopidogrel Bisulfate 75 Mg Tablet PO 75 mg DAILY MARIANA Administration Guaifenesin 10 ml 01/10/21 08:42 Guaifenesin 200 Mg/10 Ml 10 Ml Liquid PO Q6H PRN Cough Metoprolol Succinate 50 mg 01/07/21 13:02 01/10/21 08:10 Metoprolol Succinate Er 50 Mg Tab.Er.24h PO 50 mg DAILY MARIANA Administration Protocol Ondansetron HCl 4 mg 01/07/21 13:02 Ondansetron Hcl 4 Mg/2 Ml Vial IVPUSH Q8H PRN Nausea and Vomiting Pharmacy Consult 1 each 01/09/21 13:13 Consult Rx Vancomycin Dosing MISCELLANE DAILY PRN Consult order Sodium Chloride 3 ml 01/07/21 16:00 01/10/21 08:10 0.9 % Sodium Chloride Flush 3 Ml Syringe IVFLUSH 3 ml QSHIFT MARIANA Administration Labs CBC & Chem 7: 01/10/21 05:42 01/10/21 05:42 Microbiology Microbiology Results: Microbiology 01/07/21 05:16 Blood - Venous Blood Culture - Preliminary Coag negative Staphylococcus 01/07/21 05:16 Blood - Venous Blood Culture - Preliminary Coag negative Staphylococcus Assessment and Plan (1) Aspiration pneumonia: Status: Acute (2) Swallowing difficulty: Status: Acute (3) Sepsis: Status: Acute (4) Bacteremia: Status: Acute Assessment and Plan: this is an 85 year old lady with PMH of HTN, HLD, CVA who presents to the hospital with complaint of abdominal pain, nausea and vomiting for 1 day prior to admission found to have hypoxia secondary to aspiration pneumonia as well as uterine lesion.. Acute hypoxic respiratory failure Sepsis lactic acidosis (resolved) Secondary to aspiration pneumonia CT scan showing right lower lobe infiltrate Blood cultures as below seen by speech, Started on modified diet and thin liqs Gram + bacteremia Blood cultures from 01/07 growing 2/2 gram-positive cocci in clusters, final sensitivites coag negative staph -d/w ID, no need for abx, d/c vancomycin -repeat blood cultures from 01/09 pending -echocardiogram unable to eval for vegetation, but given coag negative staph no indication for DANNIE -seen by ID Acute on chronic anemia no evidence of active bleeding H/H stable Hypokalemia potassium 3.0 this am pt declining replacement at this time Uterine lesion CT scan showing irregular thickening of endometrium Gynecology discussed with the patient. Initially declined investigation, now agrees. Plan for outpatient follow-up Pulmonary nodules Concern for metastatic disease in comparison with previous CT scan Plan for outpatient follow-up as above History CVA -continue Plavix, asa -Continue statin Hypertension Continue amlodipine and metoprolol DVT -SCD boots code status - full Attending-Dr. Reed
[2021-01-10] MEDS: Amoxicillin/Potassium Clav 875 MG TABLET PO (13:37)
--- NOTE | 2021-01-10 13:38 | MHC.CLN ---
F/U PO INTAKE 50% DIET RX: GRD M/S -APPROPRIATE PT RECEIVING ENSURE BID AND FATUMA TO INCREASE KCALS AND PROMOTE WOUND HEALING SUPPLEMENT PROVIDES 860KCALS, 45G PROTEIN MONITOR PO INTAKE CLOSELY
--- NOTE | 2021-01-10 18:35 | PC.NURSE ---
Patient very demanding and tearful today. Took much encouragement for her to drink all of potassium powder. Purewick in place. No further issues.
[2021-01-10] MEDS: Atorvastatin Calcium 80 MG TABLET PO (20:42)
[2021-01-10] MEDS: guaiFENesin 200 MG/10 ML 10 ML LIQUID PO (20:43)
--- NOTE | 2021-01-10 22:38 | P.CNID_ITS ---
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 Mother No problems noted. Family history: reviewed and not pertinent Surgical History Surgical History History of cholecystectomy History of nephrolithotomy with removal of calculi Social History Social History Household Members: Spouse Housing: Skilled Nursing Do you presently have visiting nurse or other home services: Yes Unable to assess alcohol history related to: Unknown Alcohol intake: never service: No Current occupational status: retired Meds Allergies Allergy/AdvReac Type Severity Reaction Status Date / Time egg [EGG] Allergy Unknown UNKNOWN Verified 05/29/20 09:45 STREPTOMYCES ANTIBIOTICUS Allergy Unknown UNKNOWN Uncoded 05/22/20 16:39 DRVD Active Medications: Current Medications Generic Name Dose Route Start Last Admin Trade Name Freq PRN Reason Stop Dose Admin Acetaminophen 650 mg 01/07/21 13:02 01/09/21 15:08 Acetaminophen 325 Mg Tablet PO 650 mg Q6H PRN Administration Pain, Mild (Pain Scale 1-3) Al Hydroxide/Mg Hydroxide 30 ml 01/07/21 13:02 Magnesium Hydrox/Alum Hydrox 30 Ml Oral.Susp PO Q4H PRN Heartburn/Nausea Amlodipine Besylate 10 mg 01/08/21 09:00 01/10/21 08:10 Amlodipine Besylate 10 Mg Tablet PO 10 mg DAILY MARIANA Administration Protocol Amoxicillin/Clavulanate Potassium 875 mg 01/10/21 13:00 01/10/21 13:37 Amoxicillin/Potassium Clav 875 Mg Tablet PO 875 mg Q12H MARIANA Administration Aspirin 81 mg 01/10/21 09:00 01/10/21 08:10 Aspirin Enteric Coated 81 Mg Tablet.Dr PO 81 mg DAILY MARIANA Administration Atorvastatin Calcium 80 mg 01/07/21 21:00 01/10/21 20:42 Atorvastatin Calcium 80 Mg Tablet PO 80 mg BEDTIME MARIANA Administration Benzonatate 100 mg 01/09/21 20:43 01/09/21 21:49 Benzonatate 100 Mg Capsule PO 100 mg TID PRN Administration Cough Clopidogrel Bisulfate 75 mg 01/10/21 09:00 01/10/21 08:10 Clopidogrel Bisulfate 75 Mg Tablet PO 75 mg DAILY MARIANA Administration Guaifenesin 10 ml 01/10/21 08:42 01/10/21 20:43 Guaifenesin 200 Mg/10 Ml 10 Ml Liquid PO 10 ml Q6H PRN Administration Cough Metoprolol Succinate 50 mg 01/07/21 13:02 01/10/21 08:10 Metoprolol Succinate Er 50 Mg Tab.Er.24h PO 50 mg DAILY MARIANA Administration Protocol Ondansetron HCl 4 mg 01/07/21 13:02 Ondansetron Hcl 4 Mg/2 Ml Vial IVPUSH Q8H PRN Nausea and Vomiting Pharmacy Consult 1 each 01/09/21 13:13 Consult Rx Vancomycin Dosing MISCELLANE DAILY PRN Consult order Sodium Chloride 3 ml 01/07/21 16:00 01/10/21 20:43 0.9 % Sodium Chloride Flush 3 Ml Syringe IVFLUSH 3 ml QSHIFT MARIANA Administration Home Medications Medication Instructions Recorded Confirmed Last Taken Type amlodipine 10 mg PO DAILY 01/07/21 01/07/21 Unknown History Physical Exam Vital Signs: Vital Signs: Last Vital Signs Temp 98.4 F 01/10/21 19:07 Pulse 77 01/10/21 19:07 Resp 16 01/10/21 19:07 BP 107/53 L 01/10/21 19:07 Pulse Ox 97 01/10/21 19:07 Body Mass Index 25.1 Const: General: cooperative HENMT: Head: Yes normal to inspection Resp: Effort & Inspection: able to speak in complete sentences and abnormal respiratory pattern Cardio: Rate: regular rate Rhythm: regular rhythm GI: Palpation (GI): Soft to palpation and nontender Skin: General skin exam: no rashes or lesions noted Results Labs CBC & Chem 7: 01/10/21 05:42 01/11/21 05:53 Labs: Short CBC 01/10/21 Range/Units 05:42 WBC 11.3 H (4.8-10.8) X10*3/uL Hgb 11.0 L (12.0-16.0) g/dl Hct 32.9 L (37-47) % Plt Count 398 (160-400) X10*3/uL BMP 01/10/21 05:42 Sodium 141 Potassium 3.0 L D Chloride 104 Carbon Dioxide 26 BUN 7 L Creatinine 0.64 Calcium 8.3 L Microbiology Microbiology Results: Microbiology 01/09/21 13:45 Blood - Venous Blood Culture - Preliminary No growth after 24 hours. 01/09/21 13:51 Blood - Venous Blood Culture - Preliminary No growth after 24 hours. 01/07/21 05:16 Blood - Venous Blood Culture - Preliminary Coag negative Staphylococcus 01/07/21 05:16 Blood - Venous Blood Culture - Preliminary Coag negative Staphylococcus Assessment and Plan (1) Abnormal endometrial ultrasound: Status: Acute (2) Acute respiratory failure with hypoxia: Status: Acute She has hypoxia and RLL infiltrate last two days May be hypxia from aspiration,no COVID seen Augmentin for a week
[2021-01-11] VITALS (7 sets, daily range): BP systolic 110–155; BP diastolic 56–70; PULSE 70–91; RESP 18; TEMP 35.9–36.9; O2SAT 94–98
[2021-01-11] MEDS: Amoxicillin/Potassium Clav 875 MG TABLET PO ×2 (00:15→14:35)
[2021-01-11 06:55] LABS: Anion Gap 16 (12-20); Blood Urea Nitrogen 7 mg/dL (9-16); Calcium 8.8 mg/dL (8.4-10.2); Carbon Dioxide 25 mmol/L (22-29); Chloride 104 mmol/L (96-108); Creatinine Clr Calc Pharmacy 52.9; Estimated Glomerular Filt Rate > 60; Glucose Random 86 mg/dL (60-115); Potassium 3.9 mmol/L (3.3-5.1); Sodium 141 mmol/L (135-145)
[2021-01-11] MEDS: Clopidogrel Bisulfate 75 MG TABLET PO (09:15)
[2021-01-11] MEDS: amLODIPine Besylate 10 MG TABLET PO (09:15)
[2021-01-11] MEDS: Aspirin Enteric Coated 81 MG TABLET.DR PO (09:15)
[2021-01-11] MEDS: 0.9 % Sodium Chloride Flush 3 ML SYRINGE IVFLUSH ×3 (09:18→20:22)
[2021-01-11] MEDS: Metoprolol Succinate ER 50 MG TAB.ER.24H PO (09:21)
--- NOTE | 2021-01-11 11:52 | HO.PM.IMPN ---
Subjective Subjective Date of Service: 01/11/21 <Sharla Parsons NP - Last Filed: 01/11/21 12:47> 01/11/21 <Beulah Traore MD - Last Filed: 01/11/21 17:38> Interval History: Follow up aspiration pna No pain Wanting to sleep and not be examined <Sharla Parsons NP - Last Filed: 01/11/21 12:47> Physical Exam Vital Signs: Vital Signs: Last Vital Signs Temp 97.9 F 01/11/21 07:31 Pulse 91 01/11/21 09:21 Resp 18 01/11/21 07:31 BP 140/63 H 01/11/21 09:21 Pulse Ox 98 01/11/21 07:31 Body Mass Index 25.1 <Sharla Parsons NP - Last Filed: 01/11/21 12:47> Appearing in no acute distress lung sounds are clear to auscultation heart regular rate rhythm, clear S1, S2 positive bowel sounds, abdomen is soft, nontender neuro patient is alert x3, no focal deficits Coccyx stage I <Sharla Parsons NP - Last Filed: 01/11/21 12:47> Objective Data Current Medications Generic Name Dose Route Start Last Admin Trade Name Freq PRN Reason Stop Dose Admin Acetaminophen 650 mg 01/07/21 13:02 01/09/21 15:08 Acetaminophen 325 Mg Tablet PO 650 mg Q6H PRN Administration Pain, Mild (Pain Scale 1-3) Al Hydroxide/Mg Hydroxide 30 ml 01/07/21 13:02 Magnesium Hydrox/Alum Hydrox 30 Ml Oral.Susp PO Q4H PRN Heartburn/Nausea Amlodipine Besylate 10 mg 01/08/21 09:00 01/11/21 09:15 Amlodipine Besylate 10 Mg Tablet PO 10 mg DAILY MARIANA Administration Protocol Amoxicillin/Clavulanate Potassium 875 mg 01/10/21 13:00 01/11/21 00:15 Amoxicillin/Potassium Clav 875 Mg Tablet PO 875 mg Q12H MARIANA Administration Aspirin 81 mg 01/10/21 09:00 01/11/21 09:15 Aspirin Enteric Coated 81 Mg Tablet.Dr PO 81 mg DAILY MARIANA Administration Atorvastatin Calcium 80 mg 01/07/21 21:00 01/10/21 20:42 Atorvastatin Calcium 80 Mg Tablet PO 80 mg BEDTIME MARIANA Administration Benzonatate 100 mg 01/09/21 20:43 01/09/21 21:49 Benzonatate 100 Mg Capsule PO 100 mg TID PRN Administration Cough Clopidogrel Bisulfate 75 mg 01/10/21 09:00 01/11/21 09:15 Clopidogrel Bisulfate 75 Mg Tablet PO 75 mg DAILY MARIANA Administration Guaifenesin 10 ml 01/10/21 08:42 01/10/21 20:43 Guaifenesin 200 Mg/10 Ml 10 Ml Liquid PO 10 ml Q6H PRN Administration Cough Metoprolol Succinate 50 mg 01/07/21 13:02 01/11/21 09:21 Metoprolol Succinate Er 50 Mg Tab.Er.24h PO 50 mg DAILY MARIANA Administration Protocol Ondansetron HCl 4 mg 01/07/21 13:02 Ondansetron Hcl 4 Mg/2 Ml Vial IVPUSH Q8H PRN Nausea and Vomiting Pharmacy Consult 1 each 01/09/21 13:13 Consult Rx Vancomycin Dosing MISCELLANE DAILY PRN Consult order Sodium Chloride 3 ml 01/07/21 16:00 01/11/21 09:18 0.9 % Sodium Chloride Flush 3 Ml Syringe IVFLUSH 3 ml QSHIFT MARIANA Administration <Sharla Parsons NP - Last Filed: 01/11/21 12:47> Labs CBC & Chem 7: : 01/10/21 05:42 01/11/21 05:53 <Sharla Parsons NP - Last Filed: 01/11/21 12:47> Microbiology Microbiology Results: Microbiology 01/07/21 05:16 Blood - Venous Blood Culture - Final Staphylococcus epidermidis Staphylococcus warneri 01/07/21 05:16 Blood - Venous Blood Culture - Final Staphylococcus epidermidis 01/09/21 13:45 Blood - Venous Blood Culture - Preliminary No growth after 24 hours. 01/09/21 13:51 Blood - Venous Blood Culture - Preliminary No growth after 24 hours. <Sharla Parsons NP - Last Filed: 01/11/21 12:47> Assessment and Plan (1) Aspiration pneumonia: Status: Acute <Sharla Parsons NP - Last Filed: 01/11/21 12:47> Assessment and Plan: 85 year old women with PMH of HTN, HLD, CVA who presents to the hospital with complaint of abdominal pain, nausea and vomiting for 1 day prior to admission found to have hypoxia secondary to aspiration pneumonia as well as uterine lesion. Acute hypoxic respiratory failure secondary to aspiration pneumonia CT scan showing right lower lobe infiltrate Gram + bacteremia Blood cultures from 01/07 growing 2/2 gram-positive cocci in clusters, final sensitivites coag negative staph -d/w ID, no need for abx, d/c vancomycin -repeat blood cultures from 01/09 pending, neg after 24hrs -echocardiogram unable to eval for vegetation, but given coag negative staph no indication for DANNIE -seen by ID -Continue augmentin for aspiration Stage I pressure ulcer. On admission -position change -monitor daily Severe sepsis. On admission. Resolved Acute on chronic anemia no evidence of active bleeding H/H stable Hypokalemia. Resolved -Follow BMP Uterine lesion CT scan showing irregular thickening of endometrium Gynecology discussed with the patient. Initially declined investigation, now agrees. -plan for outpatient follow-up Pulmonary nodules Concern for metastatic disease in comparison with previous CT scan -plan for outpatient follow-up as above History CVA -continue Plavix, asa -continue statin Hypertension -continue amlodipine and metoprolol DISPO: Back to [facility] when medically stable DVT prophylaxis with mechanical compression boots full code Attending:Dr. Traore <Sharla Parsons NP - Last Filed: 01/11/21 12:47>
[2021-01-11] MEDS: Atorvastatin Calcium 80 MG TABLET PO (20:21)
[2021-01-12] VITALS: BP 134/78; PULSE 78; RESP 18; TEMP 36.3; O2SAT 98
[2021-01-12] MEDS: Amoxicillin/Potassium Clav 875 MG TABLET PO ×2 (00:29→12:31)
[2021-01-12 03:46] VITALS: BP 196/81; PULSE 78; RESP 18; TEMP 37.2; O2SAT 98
[2021-01-12 07:40] VITALS: BP 136/65; PULSE 72; RESP 16; TEMP 36.4; O2SAT 99
--- NOTE | 2021-01-12 08:01 | PM.DS ---
DS: Providers Provider Date of Service: 01/12/21 <Sharla Parsons NP - Last Filed: 01/12/21 12:23> Date of admission: 01/07/21 10:31 <Sharla Parsons NP - Last Filed: 01/12/21 12:23> Date of discharge: 01/12/21 <Sharla Parsons NP - Last Filed: 01/12/21 12:23> Primary care physician: Lionel Garcia MD <Sharla Parsons NP - Last Filed: 01/12/21 12:23> Admitting clinician: Deshaun Rios <Sharla Parsons NP - Last Filed: 01/12/21 12:23> Attending physician on admission: Deshaun Rios <Sharla Parsons NP - Last Filed: 01/12/21 12:23> Consults: 01/07/21 10:27 Consult to Obstetrics / Gynecology Routine Consulting Provider: Joy Galindo Reason for consultation: 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 01/08/21 15:32 Consult to Wound Care Routine Consulting Provider: Liset Davis Reason for consultation: pressure injury stage 2 01/09/21 13:13 Consult to Infectious Diseases Routine Consulting Provider: Lakia Maher Reason for consultation: gram + bacteremia Has provider been notified: No <Sharla Parsons NP - Last Filed: 01/12/21 12:23> Attending physician on discharge: Robert Lei <Sharla Parsons NP - Last Filed: 01/12/21 12:23> Discharging clinician: Sharla Parsons <Sharla Parsons NP - Last Filed: 01/12/21 12:23> DS: Diagnosis Discharge Diagnosis (1) Aspiration pneumonia: Status: Acute <Sharla Parsons NP - Last Filed: 01/12/21 12:23> (2) Bacteremia: Status: Acute <Sharla Parsons NP - Last Filed: 01/12/21 12:23> DS: Medications Discharge Medications Home Medications: Home Medications Medication Instructions Recorded Confirmed amlodipine 10 mg PO DAILY 01/07/21 01/07/21 Previous Rx's Medication Instructions Recorded miscellaneous medical supply #1 ea 07/09/20 blood pressure monitor #1 ea 07/19/20 aspirin 81 mg PO DAILY #30 tab 07/26/20 atorvastatin 80 mg PO BEDTIME #30 tab 07/26/20 clopidogrel 75 mg PO DAILY #30 tab 07/26/20 metoprolol succinate 50 mg PO DAILY #30 tab 07/26/20 <Sharla Parsons NP - Last Filed: 01/12/21 12:23> DS: Summary Hospital Course Hospital Course: HP as per admitting provider An 85 years old lady with PMH of HTN, HLD, CVA who presents to the hospital with complaint of abdominal pain, nausea and vomiting for 1 day prior to admission. The patient reported that she started feeling abdominal pain in the epigastric area associated with multiple episodes of nausea and vomiting with feeling chills but no fever. She reported minimal respiratory symptoms or cough and difficulty in swallowing on occasions with coughing mainly clear liquids. She was treated by the end of last year for acute stroke and right-sided weakness. In the emergency a CT scan of the chest was consistent with right lower lobe infiltrate suggestive of aspiration pneumonia. Admitted for further evaluation treatment . Acute hypoxic respiratory failure secondary to aspiration pneumonia. Resolved. Blood cultures from 01/07 grew 2/2 gram-positive cocci in clusters, final sensitivites coag negative staph. Echocardiogram no vegetation. Seen and evaluated by Infectious disease. Initially treated with Vancomycin however after cx, patient was transitioned to Augmentin for total 7 days. Stage I pressure ulcer on admission. No change, Frequent repositioning. Uterine lesion. Seen on CT scan showing irregular thickening of endometrium. Plan for outpatient [employer]SULTANT follow up. Referral included in Discharge paperwork Pulmonary nodules. Concern for metastatic disease in comparison with previous CT scan. Plan for outpatient pulmonary follow up. Referral included in Discharge paperwork I have seen and evaluated this patient. I have discussed the case and its management with the LEAD QUALITY CONTROL TECHNICIAN and I agree with the findings and plan as documented in the LEAD QUALITY CONTROL TECHNICIAN?s note. <Sharla Parsons NP - Last Filed: 01/12/21 12:23> Time Spent with Patient Time attestation: Total time spent providing and/or coordinating discharge services: <Sharla Parsons NP - Last Filed: 01/12/21 12:23> Discharge coordination time: Greater than 30 minutes <Sharla Parsons NP - Last Filed: 01/12/21 12:23> Quality: Stroke Does the patient have a stroke diagnosis?: No <Sharla Parsons NP - Last Filed: 01/12/21 12:23> Physical Exam Vital Signs: Vital Signs: Last Vital Signs Temp 97.5 F 01/12/21 07:40 Pulse 72 01/12/21 07:40 Resp 16 01/12/21 07:40 BP 136/65 01/12/21 07:40 Pulse Ox 99 01/12/21 07:40 Body Mass Index 25.1 <Sharla Parsons NP - Last Filed: 01/12/21 12:23> Appearing in no acute distress head is normocephalic atraumatic eyes pupils are PERRLA sclera is anicteric mouth throat mucous membranes are intact and moist neck is supple no lymphadenopathy, no JVD noted lung sounds are clear to auscultation heart regular rate rhythm, clear S1, S2 positive bowel sounds, abdomen is soft, nontender neuro patient is alert, confused no focal deficits <Sharla Parsons NP - Last Filed: 01/12/21 12:23> DS: Data Data Completed and Pending Labs on day of discharge: Preliminary micro results at discharge 01/09/21 13:45 Blood Culture - Preliminary Blood - Venous No growth after 48 hours. 01/09/21 13:51 Blood Culture - Preliminary Blood - Venous No growth after 48 hours. <Sharla Parsons NP - Last Filed: 01/12/21 12:23> Discharge Plan Discharge Anticipated Discharge Date/Time: 01/12/21 08:00 <Sharla Parsons NP - Last Filed: 01/12/21 12:23> Patient Disposition: [facility] <Sharla Parsons NP - Last Filed: 01/12/21 12:23> Discharge Diagnosis: Pneumonia Uterine lesion/pulmonary nodules Hypokalemia Lactic acidosis <Sharla Parsons NP - Last Filed: 01/12/21 12:23> Pneumonia Uterine lesion/pulmonary nodules Hypokalemia Lactic acidosis <Robert Lei MD - Last Filed: 01/14/21 17:46> Referrals: [facility] [Outside] - 1 Week Lionel Garcia MD [Primary Care Provider] - 1 Week Joy Galindo MD [Physician] - 1 Week Miguel Parsons MD [Physician] - None (pulmonary nodules ) Physician,Unknown [Physician] - 1 Week <Sharla Parsons NP - Last Filed: 01/12/21 12:23> Discharge Medications: New amoxicillin-pot clavulanate 875-125 mg Tablet 1 tab PO Q12H Qty: 8 RF: 0 Continued (DME) miscellaneous medical supply Misc See Rx Instructions .ROUTE .MEDSUPPLY Qty: 1 RF: 0 (DME) blood pressure monitor Kit See Rx Instructions .ROUTE .MEDSUPPLY Qty: 1 RF: 0 clopidogrel 75 mg Tablet 75 mg PO DAILY Qty: 30 RF: 0 atorvastatin 80 mg Tablet 80 mg PO BEDTIME Qty: 30 RF: 0 aspirin 81 mg Tablet,Delayed Release (Dr/Ec) 81 mg PO DAILY Qty: 30 RF: 0 metoprolol succinate 50 mg Tablet Extended Release 24 Hr 50 mg PO DAILY Qty: 30 RF: 0 amlodipine 10 mg tablet 10 mg PO DAILY RF: 0 <Sharla Parsons NP - Last Filed: 01/12/21 12:23> Discharge Orders: Discharge Order (Routine); Ordered 01/12/21 Ordered By: Sharla Parsons <Sharla Parsons NP - Last Filed: 01/12/21 12:23> Diet: advance to usual diet <Sharla Parsons NP - Last Filed: 01/12/21 12:23> advance to usual diet <Robert Lei MD - Last Filed: 01/14/21 17:46> Activity on Discharge: As tolerated <Sharla Parsons NP - Last Filed: 01/12/21 12:23> As tolerated <Robert Lei MD - Last Filed: 01/14/21 17:46> Stand Alone Forms: Patient Portal Discharge page <Sharla Parsons NP - Last Filed: 01/12/21 12:23> Care Plan Goals: See below <Sharla Parsons NP - Last Filed: 01/12/21 12:23> Health Concerns: Acute hypoxic respiratory failure Sepsis Elevated lactic acid Presumed aspiration <Sharla Parsons NP - Last Filed: 01/12/21 12:23> Plan of Treatment: Pneumonia likely secondary to aspiration-complete course of antibiotics Speech has recommended mechanically altered diet with thin liquids, aspiration precautions Uterine mass/pulmonary nodule - schedule follow up appointment with Dr. Galindo, Referral for Dr. Parsons, pulmonary, as well-schedule follow up appointment <Sharla Parsons NP - Last Filed: 01/12/21 12:23> Assessment: See discharge summary <Sharla Parsons NP - Last Filed: 01/12/21 12:23> Discharge Date/Time: 01/12/21 13:36 <Sharla Parsons NP - Last Filed: 01/12/21 12:23>
[2021-01-12 09:28] VITALS: BP 136/65; PULSE 72
[2021-01-12] MEDS: Aspirin Enteric Coated 81 MG TABLET.DR PO (09:28)
[2021-01-12] MEDS: Clopidogrel Bisulfate 75 MG TABLET PO (09:28)
[2021-01-12] MEDS: amLODIPine Besylate 10 MG TABLET PO (09:28)
[2021-01-12] MEDS: Metoprolol Succinate ER 50 MG TAB.ER.24H PO (09:28)
[2021-01-12] MEDS: 0.9 % Sodium Chloride Flush 3 ML SYRINGE IVFLUSH (09:31)
[2021-01-12 11:41] VITALS: BP 158/63; PULSE 72; RESP 18; TEMP 36.2; O2SAT 97
--- NOTE | 2021-01-12 12:09 | MHC.CM.PN ---
PT CLEARED FOR DC BACK TO [facility] TODAY. CM MET [facility] PT AND HER CLAUDIA WHO WAS AT BEDSIDE. DC PLAN AND SECOND IMM REVIEWED. BOTH ARE AGREEABLE TO DC PLAN AND A TIME OF 1300 HOURS WAS SET. PT WILL DC BACK TO [facility] TODAY AT 1300 HOURS [facility]IA [facility]
== END 2021-01-12 13:36 | disposition skilled nursing facility (03) | DRG 871 ==
LOC: HO.ED 08:12 → HO.EDOVER 10:56 → HO.IMC 11:31
PROVIDERS: Family Medicine; Physician Assistant Medical; Admitting Provider Student in an Organized Health Care Education/Training Program; Emergency Provider Student in an Organized Health Care Education/Training Program; PCP Internal Medicine; Visit Provider Internal Medicine
DX: A41.9 Sepsis, unspecified organism (principal); J69.0 Pneumonitis due to inhalation of food and vomit; E87.2 Acidosis; L89.152 Pressure ulcer of sacral region, stage 2; I10 Essential (primary) hypertension; R91.8 Other nonspecific abnormal finding of lung field; N85.9 Noninflammatory disorder of uterus, unspecified; F03.90 Unspecified dementia, unspecified severity, without behavioral disturbance, psychotic disturbance, mood disturbance, and anxiety; E87.6 Hypokalemia; Z86.73 Personal history of transient ischemic attack (TIA), and cerebral infarction without residual deficits; Z79.02 Long term (current) use of antithrombotics/antiplatelets; Z79.82 Long term (current) use of aspirin; Z79.899 Other long term (current) drug therapy
CPT/HCPCS: 36415; 71045; 71260; 74177; 80048; 80053; 83605; 83690; 83735; 83880; 85025; 85027; 85610; 87040; 87077; 87186; 87205; 87635; 92610; 93005; 93306; 97162; 99285; J2405; J2543; J3370; Q9967

== ENCOUNTER 2021-01-14 06:34 | Outpatient (REF) | payer MEDICARE, SELFPAY ==
[2021-01-14 07:13] LABS: Hematocrit 37.8 % (37-47); Hemoglobin 12.1 g/dl (12.0-16.0); Mean Corpuscular Hemoglobin 30.2 pg (27.0-33.0); Mean Corpuscular Volume 94.3 fL (80-98); Mean Platelet Volume 9.5 fL (9.4-12.3); Platelet Count 485 X10*3/uL (160-400); Red Blood Count 4.01 X10*6/uL (4.20-5.50); Red Cell Distribution Width 13.8 % (11.0-16.0); White Blood Count 11.8 X10*3/uL (4.8-10.8)
[2021-01-14 07:26] LABS: Alanine Aminotransferase 11 U/L (0-31); Albumin Level 3.4 g/dL (3.5-5.0); Alkaline Phosphatase 58 U/L (39-117); Anion Gap 14 (12-20); Aspartate Amino Transferase 18 U/L (5-31); Bilirubin Total 0.2 mg/dL (0.0-1.0); Blood Urea Nitrogen 11 mg/dL (9-16); Calcium 8.9 mg/dL (8.4-10.2); Carbon Dioxide 29 mmol/L (22-29); Chloride 103 mmol/L (96-108); Estimated Glomerular Filt Rate > 60; Glucose Random 90 mg/dL (60-115); Potassium 3.9 mmol/L (3.3-5.1); Sodium 142 mmol/L (135-145); Total Protein 6.3 g/dL (6.5-8.0)
== END 2021-01-14 06:35 | disposition home or self-care (01) ==
LOC: HO.MMNH3L 06:34
PROVIDERS: Visit Provider Family Medicine
DX: I65.23 Occlusion and stenosis of bilateral carotid arteries (principal); J18.9 Pneumonia, unspecified organism; Z86.73 Personal history of transient ischemic attack (TIA), and cerebral infarction without residual deficits
CPT/HCPCS: 36415; 80053; 85027

== ENCOUNTER 2021-01-19 05:00 | Outpatient (REF) | payer MEDICARE, SELFPAY ==
[2021-01-19 07:42] LABS: Hemoglobin 11.7 g/dl (12.0-16.0); Mean Corpuscular HGB Conc 32.5 g/dl (31.0-35.0); Mean Corpuscular Hemoglobin 30.5 pg (27.0-33.0); Mean Platelet Volume 9.3 fL (9.4-12.3); Platelet Count 475 X10*3/uL (160-400); Red Blood Count 3.83 X10*6/uL (4.20-5.50); Red Cell Distribution Width 14.1 % (11.0-16.0); White Blood Count 10.6 X10*3/uL (4.8-10.8)
[2021-01-19 08:15] LABS: Anion Gap 14 (12-20); Blood Urea Nitrogen 5 mg/dL (9-16); Calcium 8.9 mg/dL (8.4-10.2); Carbon Dioxide 29 mmol/L (22-29); Chloride 104 mmol/L (96-108); Estimated Glomerular Filt Rate > 60; Glucose Random 79 mg/dL (60-115); Potassium 4.8 mmol/L (3.3-5.1); Sodium 142 mmol/L (135-145)
== END 2021-01-19 05:01 | disposition home or self-care (01) ==
LOC: HO.MMNH3L 05:00
PROVIDERS: Visit Provider Family Medicine
DX: I69.351 Hemiplegia and hemiparesis following cerebral infarction affecting right dominant side (principal); I65.23 Occlusion and stenosis of bilateral carotid arteries; F03.90 Unspecified dementia, unspecified severity, without behavioral disturbance, psychotic disturbance, mood disturbance, and anxiety
CPT/HCPCS: 36415; 80048; 85027

== ENCOUNTER → 2021-01-22 15:26 | Outpatient (BNVA) | payer MEDICARE, SELFPAY | PROVIDERS: PCP Internal Medicine; Visit Provider Obstetrics & Gynecology ==

== ENCOUNTER → 2021-01-28 14:33 | Outpatient (BNVA) | payer MEDICARE, SELFPAY | PROVIDERS: PCP Internal Medicine; Visit Provider Internal Medicine | DX: R13.10 Dysphagia, unspecified (principal); J69.0 Pneumonitis due to inhalation of food and vomit; R91.8 Other nonspecific abnormal finding of lung field; T17.908A Unspecified foreign body in respiratory tract, part unspecified causing other injury, initial encounter | CPT/HCPCS: 99202 ==

== ENCOUNTER 2021-02-18 07:20 | Outpatient (REF) | payer MEDICARE, SELFPAY ==
[2021-02-18 07:39] LABS: Hematocrit 37.4 % (37-47); Hemoglobin 12.1 g/dl (12.0-16.0); Mean Corpuscular HGB Conc 32.4 g/dl (31.0-35.0); Mean Corpuscular Hemoglobin 30.2 pg (27.0-33.0); Mean Corpuscular Volume 93.3 fL (80-98); Platelet Count 396 X10*3/uL (160-400); Red Blood Count 4.01 X10*6/uL (4.20-5.50); Red Cell Distribution Width 14.3 % (11.0-16.0); White Blood Count 10.1 X10*3/uL (4.8-10.8)
[2021-02-18 08:02] LABS: Anion Gap 15 (12-20); Blood Urea Nitrogen 10 mg/dL (9-16); Carbon Dioxide 25 mmol/L (22-29); Chloride 105 mmol/L (96-108); Estimated Glomerular Filt Rate > 60; Glucose Random 81 mg/dL (60-115); Sodium 141 mmol/L (135-145)
== END 2021-02-18 07:21 | disposition home or self-care (01) ==
LOC: HO.MMNH3L 07:20
PROVIDERS: Visit Provider Family Medicine
DX: I69.351 Hemiplegia and hemiparesis following cerebral infarction affecting right dominant side (principal); I65.23 Occlusion and stenosis of bilateral carotid arteries; F03.90 Unspecified dementia, unspecified severity, without behavioral disturbance, psychotic disturbance, mood disturbance, and anxiety
CPT/HCPCS: 36415; 80048; 85027

== ENCOUNTER → 2021-02-19 07:53 | Outpatient (BNVA) | payer MEDICARE, SELFPAY | PROVIDERS: Visit Provider Obstetrics & Gynecology | DX: R93.89 Abnormal findings on diagnostic imaging of other specified body structures (principal) | CPT/HCPCS: 58100; 99212 ==

== ENCOUNTER 2021-03-21 12:09 | Outpatient (REF) | payer MEDICARE, SELFPAY ==
[2021-03-21 07:06] LABS: Hematocrit 32.3 % (37-47); Hemoglobin 10.4 g/dl (12.0-16.0); Mean Corpuscular HGB Conc 32.2 g/dl (31.0-35.0); Mean Corpuscular Hemoglobin 30.3 pg (27.0-33.0); Mean Corpuscular Volume 94.2 fL (80-98); Mean Platelet Volume 9.9 fL (9.4-12.3); Platelet Count 370 X10*3/uL (160-400); Red Blood Count 3.43 X10*6/uL (4.20-5.50); Red Cell Distribution Width 14.1 % (11.0-16.0)
[2021-03-21 07:53] LABS: Anion Gap 15 (12-20); Blood Urea Nitrogen 12 mg/dL (9-16); Calcium 8.4 mg/dL (8.4-10.2); Carbon Dioxide 26 mmol/L (22-29); Chloride 104 mmol/L (96-108); Estimated Glomerular Filt Rate > 60; Glucose Random 69 mg/dL (60-115); Sodium 141 mmol/L (135-145)
== END 2021-03-21 12:10 | disposition home or self-care (01) ==
LOC: HO.MMNH3L 12:09
PROVIDERS: Visit Provider Family Medicine
DX: I69.351 Hemiplegia and hemiparesis following cerebral infarction affecting right dominant side (principal); I65.23 Occlusion and stenosis of bilateral carotid arteries; F03.90 Unspecified dementia, unspecified severity, without behavioral disturbance, psychotic disturbance, mood disturbance, and anxiety
CPT/HCPCS: 36415; 80048; 85027

== ENCOUNTER 2021-04-22 05:00 | Outpatient (REF) | payer MEDICARE, SELFPAY ==
[2021-04-22 07:21] LABS: Hemoglobin 10.6 g/dl (12.0-16.0); Mean Corpuscular HGB Conc 32.1 g/dl (31.0-35.0); Mean Corpuscular Hemoglobin 29.4 pg (27.0-33.0); Mean Corpuscular Volume 91.7 fL (80-98); Mean Platelet Volume 9.5 fL (9.4-12.3); Platelet Count 408 X10*3/uL (160-400); Red Cell Distribution Width 13.6 % (11.0-16.0); White Blood Count 9.3 X10*3/uL (4.8-10.8)
[2021-04-22 08:18] LABS: Anion Gap 13 (12-20); Blood Urea Nitrogen 12 mg/dL (9-16); Calcium 8.5 mg/dL (8.4-10.2); Carbon Dioxide 27 mmol/L (22-29); Chloride 106 mmol/L (96-108); Estimated Glomerular Filt Rate > 60; Glucose Random 73 mg/dL (60-115); Potassium 4.6 mmol/L (3.3-5.1); Sodium 141 mmol/L (135-145)
== END 2021-04-22 05:01 ==
LOC: HO.MMNH3L 05:00
PROVIDERS: Visit Provider Family Medicine
DX: I69.351 Hemiplegia and hemiparesis following cerebral infarction affecting right dominant side (principal); I65.23 Occlusion and stenosis of bilateral carotid arteries; F03.90 Unspecified dementia, unspecified severity, without behavioral disturbance, psychotic disturbance, mood disturbance, and anxiety
CPT/HCPCS: 36415; 80048; 85027

== ENCOUNTER 2021-05-21 07:28 | Outpatient (REF) | payer MEDICARE, SELFPAY ==
[2021-05-21 07:51] LABS: Hematocrit 33.1 % (37-47); Hemoglobin 10.6 g/dl (12.0-16.0); Mean Corpuscular Hemoglobin 29.1 pg (27.0-33.0); Mean Corpuscular Volume 90.9 fL (80-98); Mean Platelet Volume 9.7 fL (9.4-12.3); Platelet Count 406 X10*3/uL (160-400); Red Blood Count 3.64 X10*6/uL (4.20-5.50); Red Cell Distribution Width 13.9 % (11.0-16.0); White Blood Count 10.1 X10*3/uL (4.8-10.8)
[2021-05-21 08:20] LABS: Anion Gap 14 (12-20); Blood Urea Nitrogen 10 mg/dL (9-16); Calcium 8.7 mg/dL (8.4-10.2); Carbon Dioxide 25 mmol/L (22-29); Chloride 103 mmol/L (96-108); Estimated Glomerular Filt Rate > 60; Glucose Random 76 mg/dL (60-115); Potassium 4.3 mmol/L (3.3-5.1); Sodium 138 mmol/L (135-145)
== END 2021-05-21 07:29 | disposition home or self-care (01) ==
LOC: HO.MMNH3L 07:28
PROVIDERS: Visit Provider Family Medicine
DX: I69.351 Hemiplegia and hemiparesis following cerebral infarction affecting right dominant side (principal); I65.23 Occlusion and stenosis of bilateral carotid arteries; F03.90 Unspecified dementia, unspecified severity, without behavioral disturbance, psychotic disturbance, mood disturbance, and anxiety
CPT/HCPCS: 36415; 80048; 85027

== ENCOUNTER 2021-06-20 | Outpatient (REF) | payer MEDICARE, SELFPAY ==
[2021-06-20 08:03] LABS: Hematocrit 31.3 % (37.0-47.0); Hemoglobin 10.2 g/dl (12.0-16.0); Mean Corpuscular HGB Conc 32.6 g/dl (31.0-35.0); Mean Corpuscular Hemoglobin 29.3 pg (27.0-33.0); Mean Corpuscular Volume 89.9 fL (80.0-98.0); Mean Platelet Volume 9.7 fL (9.4-12.3); Platelet Count 465 X10*3/uL (160-400); Red Blood Count 3.48 X10*6/uL (4.20-5.50); Red Cell Distribution Width 14.6 % (11.0-16.0); White Blood Count 13.3 X10*3/uL (4.8-10.8)
[2021-06-20 08:40] LABS: Anion Gap 16 (12-20); Blood Urea Nitrogen 12 mg/dL (9-16); Calcium 8.2 mg/dL (8.4-10.2); Carbon Dioxide 27 mmol/L (22-29); Chloride 103 mmol/L (96-108); Estimated Glomerular Filt Rate > 60; Glucose Random 69 mg/dL (60-115); Potassium 4.6 mmol/L (3.3-5.1); Sodium 141 mmol/L (135-145)
== END 2021-06-20 00:01 | disposition home or self-care (01) ==
LOC: HO.MMNH3L
PROVIDERS: Visit Provider Family Medicine
DX: I69.351 Hemiplegia and hemiparesis following cerebral infarction affecting right dominant side (principal); I65.23 Occlusion and stenosis of bilateral carotid arteries; F03.90 Unspecified dementia, unspecified severity, without behavioral disturbance, psychotic disturbance, mood disturbance, and anxiety
CPT/HCPCS: 36415; 80048; 85027

== ENCOUNTER 2021-07-21 00:27 | Outpatient (REF) | payer MEDICARE, SELFPAY ==
[2021-07-21 07:50] LABS: Hematocrit 34.9 % (37.0-47.0); Hemoglobin 11.6 g/dl (12.0-16.0); Mean Corpuscular HGB Conc 33.2 g/dl (31.0-35.0); Mean Corpuscular Hemoglobin 29.7 pg (27.0-33.0); Mean Corpuscular Volume 89.5 fL (80.0-98.0); Mean Platelet Volume 9.6 fL (9.4-12.3); Platelet Count 483 X10*3/uL (160-400); Red Cell Distribution Width 16.8 % (11.0-16.0); White Blood Count 14.6 X10*3/uL (4.8-10.8)
[2021-07-21 08:26] LABS: Anion Gap 13 (12-20); Blood Urea Nitrogen 19 mg/dL (9-16); Calcium 8.1 mg/dL (8.4-10.2); Carbon Dioxide 26 mmol/L (22-29); Chloride 101 mmol/L (96-108); Estimated Glomerular Filt Rate > 60; Glucose Random 64 mg/dL (60-115); Potassium 4.3 mmol/L (3.3-5.1); Sodium 136 mmol/L (135-145)
== END 2021-07-21 00:28 | disposition home or self-care (01) ==
LOC: HO.MMNH3L 00:27
PROVIDERS: Visit Provider Family Medicine
DX: I69.351 Hemiplegia and hemiparesis following cerebral infarction affecting right dominant side (principal); I65.23 Occlusion and stenosis of bilateral carotid arteries; F03.90 Unspecified dementia, unspecified severity, without behavioral disturbance, psychotic disturbance, mood disturbance, and anxiety
CPT/HCPCS: 36415; 80048; 85027

== ENCOUNTER 2021-07-30 03:33 | Inpatient (IN) | payer MEDICARE, SELFPAY ==
--- NOTE | ~2021-07-30 | CT_ITS ---
EXAMINATION: CT CHEST, ABDOMEN AND PELVIS WITH CONTRAST CLINICAL INFORMATION: Bleeding. COMPARISON: None TECHNIQUE: 5 mm thin axial and 3 mm thin sagittal and coronal images of the chest, abdomen and pelvis were obtained following IV 100 mL Omnipaque 350. DLP: 792 mGy-cm. FINDINGS: CHEST: Lungs: There are multiple bilateral upper and lower lobe pulmonary nodules with the largest nodule in right upper lobe measuring 1.11 cm. There is left lower lobe collapse from a large left pleural effusion. No consolidation is appreciated. There is large left pleural effusion and small right pleural effusion The heart size and the great vessels are normal caliber. There are coronary artery calcifications. No pericardial effusion seen. The central trachea and the bronchi appear widely patent. No abnormal sized mediastinal or hilar lymph nodes seen. The thyroid lobes are symmetrical and normal. The axilla appears unremarkable. No chest wall mass or lesion seen. Bone windows reveal no bony abnormality. ABDOMEN AND PELVIS: There is diffuse ascites. There are multiple liver lesions with peripheral enhancement. The largest left hepatic lobe lesion appears lobulated and septated measuring approximately 6.6 x 5.7 cm. No intrahepatic ductal dilatation seen. There are surgical sutures in the gallbladder fossa likely from previous resection. The visualized small spleen, atrophic pancreas and bilateral adrenal glands are unremarkable. There are multiple bilateral renal cysts. There is a nonobstructive 9 mm radiopaque calculi lower pole calyx left kidney. There is mild right hydroureteronephrosis but no obstructive radiopaque calculi seen. There is scattered stool and gas seen throughout the colon without distention. There is a large amount of ascites. Appendix is likely normal. The small bowel loops are unremarkable. Imaging through the pelvis reveals a large hypodense lobulated mass in the fundal uterus likely primary uterine lesion. 1 cm right internal iliac lymph node on sagittal image 67/15. No retroperitoneal abnormal sized lymph nodes seen. No aggressive lytic or sclerotic process seen. There is bilateral L4-L5 and L5-S1 facet joint arthropathy. CT/CT abdomen pelvis w con IMPRESSION: Large irregular-shaped mass arising from the fundal uterus or the endometrium. 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 The adrenal glands are normal. Small right internal iliac lymph node, as described above. Nonobstructive left renal calculi and bilateral right renal cysts slightly more in number on the right side. There is mild hydroureteronephrosis likely obstruction secondary to uterine lesion. No radiopaque calculi seen in the right distal ureter. Metastatic pulmonary nodules. Large left pleural effusion and small right pleural effusion. Left lower lobe collapse secondary to effusion. No abnormal chest lymphadenopathy seen. A PET study can be performed to evaluate for a primary lesion and for staging. Also paracentesis or thoracentesis can be done for cytology.
[2021-07-30 05:56] LABS: COVID-19 Test Negative (Negative)
[2021-07-30 06:05] LABS: Alanine Aminotransferase 24 U/L (0-31); Albumin Level 2.4 g/dL (3.5-5.0); Alkaline Phosphatase 230 U/L (39-117); Anion Gap 20 (12-20); Aspartate Amino Transferase 84 U/L (5-31); Bilirubin Total 0.4 mg/dL (0.0-1.0); Blood Urea Nitrogen 77 mg/dL (9-16); Calcium 7.9 mg/dL (8.4-10.2); Carbon Dioxide 21 mmol/L (22-29); Chloride 96 mmol/L (96-108); Estimated Glomerular Filt Rate 20; Glucose Random 97 mg/dL (60-115); Lactic Acid 2.3 mmol/L (0.5-2.0); Potassium 3.7 mmol/L (3.3-5.1); Sodium 133 mmol/L (135-145); Total Protein 6.7 g/dL (6.5-8.0)
[2021-07-30 06:14] LABS: Basophils Percent Auto 0.1 % (0-2); Hematocrit 32.4 % (37.0-47.0); Hemoglobin 10.8 g/dl (12.0-16.0); Imm Gran Abs Auto 0.06 X10*3/uL (0.00-0.03); Imm Gran Pct Auto 0.4 % (0.0-0.4); Lymphocytes Percent Auto 6.7 % (20-40); Mean Corpuscular HGB Conc 33.3 g/dl (31.0-35.0); Mean Corpuscular Hemoglobin 29.1 pg (27.0-33.0); Mean Corpuscular Volume 87.3 fL (80.0-98.0); Mean Platelet Volume 9.5 fL (9.4-12.3); Monocytes Absolute Auto 0.6 X10*3/uL (0.1-1.2); Neutrophils Absolute Auto 12.7 x10*3/uL (2.0-8.3); Neutrophils Percent Auto 88.8 % (45-73); Platelet Count 493 X10*3/uL (160-400); Red Blood Count 3.71 X10*6/uL (4.20-5.50); Red Cell Distribution Width 16.6 % (11.0-16.0); White Blood Count 14.3 X10*3/uL (4.8-10.8)
[2021-07-30 06:35] LABS: Prothrombin Time 11.4 SEC (9.9-13.0)
[2021-07-30] MEDS: iohexoL 350 MG/ML 100 ML INFUS..BTL 85 ML IV (06:38)
[2021-07-30 06:39] LABS: Appearance Urine CLEAR; Color Urine DARK YELLOW; Glucose Urine UA NEG (NEG); Urine Blood 1+ (NEG)
[2021-07-30 06:40] LABS: Leukocyte Esterase Urine NEG (NEG); Nitrite Urine POS (NEG); Urine Ketones NEG (NEG); Urine Protein NEG (NEG-TRACE)
[2021-07-30 06:41] LABS: Specific Gravity - Urine > 1.030 (1.005-1.025)
[2021-07-30 06:46] LABS: Reflex Lactate? Lactic Acid Added
[2021-07-30 07:02] LABS: Squamous Epithelial Cell Urine 1+ /LPF
[2021-07-30 07:04] LABS: Amorphous Sediment Urine 1+ /LPF; Bacteria Urine TRACE /LPF; WBC Urine 0-2 /HPF (0-4)
--- NOTE | 2021-07-30 07:07 | ED.ABDPAIN ---
HPI - Abdominal Pain General Time Seen by Provider: 07/30/21 06:46 History of Present Illness HPI narrative: Downtime paperwork was filled out. Related Data Home Medications Medication Instructions Recorded Confirmed amlodipine 10 mg tablet 10 mg PO DAILY 01/07/21 01/07/21 Previous Rx's Medication Instructions Recorded miscellaneous medical supply #1 ea 07/09/20 blood pressure monitor #1 ea 07/19/20 aspirin 81 mg tablet,delayed 81 mg PO DAILY #30 tab 07/26/20 release atorvastatin 80 mg tablet 80 mg PO BEDTIME #30 tab 07/26/20 clopidogrel 75 mg tablet 75 mg PO DAILY #30 tab 07/26/20 metoprolol succinate 50 mg 50 mg PO DAILY #30 tab 07/26/20 tablet,extended release 24 hr Allergies Allergy/AdvReac Type Severity Reaction Status Date / Time egg [EGG] Allergy Unknown UNKNOWN Verified 02/19/21 08:03 STREPTOMYCES ANTIBIOTICUS Allergy Unknown UNKNOWN Uncoded 02/19/21 08:03 DRVD MDM - Abdominal Pain Lab Data Result diagrams: 07/30/21 04:35 07/30/21 04:35 Labs: Lab Results 07/30/21 07/30/21 07/30/21 Range/Units 04:35 04:35 04:35 WBC Cancelled RBC Cancelled Hgb Cancelled Hct Cancelled MCV Cancelled MCH Cancelled MCHC Cancelled RDW Cancelled Plt Count Cancelled MPV Cancelled Immature Gran % (Auto) Cancelled Neut % (Auto) Cancelled Lymph % (Auto) Cancelled [place] % (Auto) Cancelled Eos % (Auto) Cancelled Baso % (Auto) Cancelled Lymph # (Auto) Cancelled [place] # (Auto) Cancelled Eos # (Auto) Cancelled Baso # (Auto) Cancelled Abs Immat Gran (auto) Cancelled Absolute Neuts (auto) Cancelled Absolute Nucleated RBC Cancelled Nucleated RBC % (auto) Cancelled PT (9.9-13.0) SEC INR (0.9-1.1) Sodium 133 L (135-145) mmol/L Potassium 3.7 (3.3-5.1) mmol/L Chloride 96 (96-108) mmol/L Carbon Dioxide 21 L (22-29) mmol/L Anion Gap 20 (12-20) BUN 77 H D (9-16) mg/dL Creatinine 2.35 H (0.5-1.4) mg/dL Estim Creat Clear Calc TNP Estimated GFR 20 Random Glucose 97 (60-115) mg/dL Lactic Acid 2.3 H* (0.5-2.0) mmol/L Calcium 7.9 L (8.4-10.2) mg/dL Total Bilirubin 0.4 (0.0-1.0) mg/dL AST 84 H (5-31) U/L ALT 24 (0-31) U/L Alkaline Phosphatase 230 H D (39-117) U/L Total Protein 6.7 (6.5-8.0) g/dL Albumin 2.4 L D (3.5-5.0) g/dL Urine Color Urine Appearance Urine pH (5.0-8.0) Ur Specific [place] (1.005-1.025) Urine Protein (NEG-TRACE) MG/DL Urine Glucose (UA) (NEG) MG/DL Urine Ketones (NEG) MG/DL Urine Blood (NEG) Urine Nitrite (NEG) Ur Leukocyte Esterase (NEG) Urine RBC (0) /HPF Urine WBC (0-4) /HPF Ur Squamous Epith Cells /LPF Amorphous Sediment /LPF Urine Bacteria /LPF COVID-19 (WEN) (Negative) COVID-19 Clin Com 07/30/21 07/30/21 07/30/21 Range/Units 04:35 04:35 04:45 WBC 14.3 H RBC 3.71 L Hgb 10.8 L Hct 32.4 L MCV 87.3 MCH 29.1 MCHC 33.3 RDW 16.6 H Plt Count 493 H MPV 9.5 Immature Gran % (Auto) 0.4 Neut % (Auto) 88.8 H Lymph % (Auto) 6.7 L [place] % (Auto) 4.0 Eos % (Auto) 0.0 Baso % (Auto) 0.1 Lymph # (Auto) 1.0 L [place] # (Auto) 0.6 Eos # (Auto) 0.0 Baso # (Auto) 0.0 Abs Immat Gran (auto) 0.06 H Absolute Neuts (auto) 12.7 H Absolute Nucleated RBC 0.000 Nucleated RBC % (auto) 0.0 PT 11.4 (9.9-13.0) SEC INR 1.0 (0.9-1.1) Sodium (135-145) mmol/L Potassium (3.3-5.1) mmol/L Chloride (96-108) mmol/L Carbon Dioxide (22-29) mmol/L Anion Gap (12-20) BUN (9-16) mg/dL Creatinine (0.5-1.4) mg/dL Estim Creat Clear Calc Estimated GFR Random Glucose (60-115) mg/dL Lactic Acid (0.5-2.0) mmol/L Calcium (8.4-10.2) mg/dL Total Bilirubin (0.0-1.0) mg/dL AST (5-31) U/L ALT (0-31) U/L Alkaline Phosphatase (39-117) U/L Total Protein (6.5-8.0) g/dL Albumin (3.5-5.0) g/dL Urine Color Urine Appearance Urine pH (5.0-8.0) Ur Specific [place] (1.005-1.025) Urine Protein (NEG-TRACE) MG/DL Urine Glucose (UA) (NEG) MG/DL Urine Ketones (NEG) MG/DL Urine Blood (NEG) Urine Nitrite (NEG) Ur Leukocyte Esterase (NEG) Urine RBC (0) /HPF Urine WBC (0-4) /HPF Ur Squamous Epith Cells /LPF Amorphous Sediment /LPF Urine Bacteria /LPF COVID-19 (WEN) Negative (Negative) COVID-19 Clin Com See Note 07/30/21 Range/Units 05:15 WBC RBC Hgb Hct MCV MCH MCHC RDW Plt Count MPV Immature Gran % (Auto) Neut % (Auto) Lymph % (Auto) [place] % (Auto) Eos % (Auto) Baso % (Auto) Lymph # (Auto) [place] # (Auto) Eos # (Auto) Baso # (Auto) Abs Immat Gran (auto) Absolute Neuts (auto) Absolute Nucleated RBC Nucleated RBC % (auto) PT (9.9-13.0) SEC INR (0.9-1.1) Sodium (135-145) mmol/L Potassium (3.3-5.1) mmol/L Chloride (96-108) mmol/L Carbon Dioxide (22-29) mmol/L Anion Gap (12-20) BUN (9-16) mg/dL Creatinine (0.5-1.4) mg/dL Estim Creat Clear Calc Estimated GFR Random Glucose (60-115) mg/dL Lactic Acid (0.5-2.0) mmol/L Calcium (8.4-10.2) mg/dL Total Bilirubin (0.0-1.0) mg/dL AST (5-31) U/L ALT (0-31) U/L Alkaline Phosphatase (39-117) U/L Total Protein (6.5-8.0) g/dL Albumin (3.5-5.0) g/dL Urine Color DARK YELLOW Urine Appearance CLEAR Urine pH 5.0 (5.0-8.0) Ur Specific [place] > 1.030 H (1.005-1.025) Urine Protein NEG (NEG-TRACE) MG/DL Urine Glucose (UA) NEG (NEG) MG/DL Urine Ketones NEG (NEG) MG/DL Urine Blood 1+ H (NEG) Urine Nitrite POS H (NEG) Ur Leukocyte Esterase NEG (NEG) Urine RBC 5-9 H (0) /HPF Urine WBC 0-2 (0-4) /HPF Ur Squamous Epith Cells 1+ /LPF Amorphous Sediment 1+ /LPF Urine Bacteria TRACE /LPF COVID-19 (WEN) (Negative) COVID-19 Clin Com Discharge Plan Discharge Clinical Impression: Acute UTI, RIDDHI (acute kidney injury), Neoplasm Patient Disposition: Admitted As Inpatient [facility] Past Medical History Medical History Carotid stenosis, bilateral 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 Mother No problems noted. Social History Social History Household Members: Spouse Housing: Shelter Do you presently have visiting nurse or other home services: Yes Unable to assess alcohol history related to: Unknown Alcohol intake: never Advance Directives: No Advance Directives Information Provided: No service: No Current occupational status: retired
[2021-07-30] MEDS: cefTRIAXone sodium 1 GM in 0.9 % Sodium Chloride 50 ML IV (07:30)
[2021-07-30 08:46] VITALS: BP 97/26; PULSE 96; RESP 17; TEMP 35.9
--- NOTE | 2021-07-30 09:04 | PM.IMHP ---
History of Present Illness Date of Service: 07/30/21 Chief Complaint: abodminal pain This is an 85 yo F with multiple medical problems as outlined below who is a resident of [facility] and is sent to [facility] ED with complaints of abdominal pain. Due to the patients underlying dementia, her history if limited and therefore obtained from the ED/SNF records, as well as the patients and healthcare proxy Yunior Gillespie. Reportedly the patient had complained of severe left-sided abdominal pain on the evening prior to arrival and so she was sent to [facility] ED. It is unclear if there was any associated nausea or vomiting, diarrhea or constipation. No reports of fevers and chills. Yunior, corroborates that the patient did complain of abdominal pain to him in the preceding days, when he had visited her at the SNF. He also reported that she was not eating as much as normal. The patient is seen and examined in the ED this AM. She reports no current abdominal pain or nausea. In fact, she reports she wants some breakfast. She does not know where she is, where she lives nor why she is here. Review of Systems Review of Systems: unreliable due to the patients baseline dementia. 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 Mother No problems noted. Surgical History History of cholecystectomy History of nephrolithotomy with removal of calculi Social History Household Members: Spouse Housing: [facility] Do you presently have visiting nurse or other home services: Yes Unable to assess alcohol history related to: Unknown Alcohol intake: never Advance Directives: No Advance Directives Information Provided: No service: No Current occupational status: retired Meds Allergies Allergy/AdvReac Type Severity Reaction Status Date / Time egg [EGG] Allergy Unknown UNKNOWN Verified 02/19/21 08:03 STREPTOMYCES ANTIBIOTICUS Allergy Unknown UNKNOWN Uncoded 02/19/21 08:03 DRVD Home Medications Medication Instructions Recorded Confirmed Last Taken Type amlodipine 10 mg tablet 10 mg PO DAILY 01/07/21 01/07/21 Unknown History Physical Exam Const: Other: Constitutional - Awake and Alert, confused HEENT - PERRLA, EOMI, Dry oral mucous membranes Cardiovascular - S1S2 Respiratory - Normal lung expansion, Normal respiratory effort, No respiratory distress, CTA bilaterally Gastrointestinal - NT / ND; +BS; No rebound or guarding - No CVA tenderness Extremities - no calf tenderness bilaterally, no swelling Musculoskeletal - Normal inspection, normal ROM Skin - Warm/Dry Neurological - moving all 4 extremities; oriented to self otherwise disoriented. Psychological - Appropriate affect Results Labs CBC and Chem 7: 07/30/21 04:35 07/30/21 04:35 Labs: Laboratory Results - last 24 hr 07/30/21 07/30/21 07/30/21 04:35 04:35 04:35 MCV Cancelled MCH Cancelled MCHC Cancelled RDW Cancelled Plt Count Cancelled MPV Cancelled Immature Gran % (Auto) Cancelled Neut % (Auto) Cancelled Lymph % (Auto) Cancelled [place] % (Auto) Cancelled Eos % (Auto) Cancelled Baso % (Auto) Cancelled Lymph # (Auto) Cancelled [place] # (Auto) Cancelled Eos # (Auto) Cancelled Baso # (Auto) Cancelled Abs Immat Gran (auto) Cancelled Absolute Neuts (auto) Cancelled Absolute Nucleated RBC Cancelled Nucleated RBC % (auto) Cancelled PT INR Anion Gap 20 Estim Creat Clear Calc TNP Estimated GFR 20 Random Glucose 97 Lactic Acid 2.3 H* Calcium 7.9 L Total Bilirubin 0.4 AST 84 H ALT 24 Alkaline Phosphatase 230 H D Total Protein 6.7 Albumin 2.4 L D Urine Color Urine Appearance Urine pH Ur Specific [place] Urine Protein Urine Glucose (UA) Urine Ketones Urine Blood Urine Nitrite Ur Leukocyte Esterase Urine RBC Urine WBC Ur Squamous Epith Cells Amorphous Sediment Urine Bacteria COVID-19 (WEN) COVID-19 Clin Com Blood Type Antibody Screen 07/30/21 07/30/21 07/30/21 04:35 04:35 04:35 MCV 87.3 MCH 29.1 MCHC 33.3 RDW 16.6 H Plt Count 493 H MPV 9.5 Immature Gran % (Auto) 0.4 Neut % (Auto) 88.8 H Lymph % (Auto) 6.7 L [place] % (Auto) 4.0 Eos % (Auto) 0.0 Baso % (Auto) 0.1 Lymph # (Auto) 1.0 L [place] # (Auto) 0.6 Eos # (Auto) 0.0 Baso # (Auto) 0.0 Abs Immat Gran (auto) 0.06 H Absolute Neuts (auto) 12.7 H Absolute Nucleated RBC 0.000 Nucleated RBC % (auto) 0.0 PT 11.4 INR 1.0 Anion Gap Estim Creat Clear Calc Estimated GFR Random Glucose Lactic Acid Calcium Total Bilirubin AST ALT Alkaline Phosphatase Total Protein Albumin Urine Color Urine Appearance Urine pH Ur Specific [place] Urine Protein Urine Glucose (UA) Urine Ketones Urine Blood Urine Nitrite Ur Leukocyte Esterase Urine RBC Urine WBC Ur Squamous Epith Cells Amorphous Sediment Urine Bacteria COVID-19 (WNE) COVID-19 Clin Com Blood Type Cancelled Antibody Screen Cancelled 07/30/21 07/30/21 04:45 05:15 MCV MCH MCHC RDW Plt Count MPV Immature Gran % (Auto) Neut % (Auto) Lymph % (Auto) [place] % (Auto) Eos % (Auto) Baso % (Auto) Lymph # (Auto) [place] # (Auto) Eos # (Auto) Baso # (Auto) Abs Immat Gran (auto) Absolute Neuts (auto) Absolute Nucleated RBC Nucleated RBC % (auto) PT INR Anion Gap Estim Creat Clear Calc Estimated GFR Random Glucose Lactic Acid Calcium Total Bilirubin AST ALT Alkaline Phosphatase Total Protein Albumin Urine Color DARK YELLOW Urine Appearance CLEAR Urine pH 5.0 Ur Specific [place] > 1.030 H Urine Protein NEG Urine Glucose (UA) NEG Urine Ketones NEG Urine Blood 1+ H Urine Nitrite POS H Ur Leukocyte Esterase NEG Urine RBC 5-9 H Urine WBC 0-2 Ur Squamous Epith Cells 1+ Amorphous Sediment 1+ Urine Bacteria TRACE COVID-19 (WEN) Negative COVID-19 Clin Com See Note Blood Type Antibody Screen Imaging Comment: CT chest -- see formal report concern over metastatic disease in the chest with likely primary in the region Assessment and Plan (1) Severe sepsis: Status: Acute This is an 85 yo F with a PMH of 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 She is found to have a UTI and RIDDHI. She will be admitted for further work up and treatment. 1. Sepsis - with severe features Due to UTI Met sepsis criteria with tachycardia, leukocytosis Severe features include low MAP, RIDDHI and Elevated lactate f/u cultures 2. Acute Kidney Injury suspected pre-renal from dehydration, possibly due to sepsis given 2L IVF in the ED, will continue IVF @ 100 cc/hr for an additional 2L Insert lancaster -- monitor i/o 3. UTI IV rocephin f/u cultures 4. Abdominal pain suspected secondary to her undiagnosed (but known) malignancy IV morphine / PO oxcodone for pain control 5. Dementia without behavioral disturbances at this point continue baseline care Continue appropriate baseline meds. DNR/DNI DVT pptx -- high risk. Subcut. heparin Discussed with patients /HCP re: code status. Her current MOLST is DNI, but attempt resuscitation. After explanation of what a code involves, he has elected DNR and DNI. Furthermore, I discussed hospice as a possibility given her suspected cancer. Will be considering transition to hospice upon discharge back to SNF. Quality Stroke Does the patient have a stroke diagnosis?: No VTE Prior VTE?: No VTE Risk Level:: Medical - moderate - high VTE Device Contraindication: Treatment Not Indicated VTE Drug Contraindication: N/A - Med Ordered
[2021-07-30] MEDS: Heparin Sodium,Porcine 5,000 UNIT/ML VIAL 5000 UNIT SUBCUT ×2 (09:49→21:30)
[2021-07-30] MEDS: Lactated Ringers 1,000 ML 100 ML IVCONT (09:50)
[2021-07-30 09:56] LABS: Glucose, Whole Blood 81 mg/dL (60-115)
[2021-07-30 10:05] VITALS: BP 107/58; PULSE 94; RESP 16
[2021-07-30 10:09] LABS: ~Lactic Acid-LAB USE ONLY 2.3 mmol/L (0.5-2.0)
--- NOTE | 2021-07-30 10:12 | PC.RT ---
Pt was a difficult stick i tried 2 times. The time was 0925.
[2021-07-30 11:56] LABS: Reflex Lactate? 2 Y
--- NOTE | 2021-07-30 12:34 | PHA.MEDREC ---
Pharmacy Consult ? Medication Reconciliation Pharmacy has completed the medication reconciliation.
[2021-07-30 12:46] LABS: ~Lactic Acid-LAB USE ONLY 2.1 mmol/L (0.5-2.0)
[2021-07-30 14:48] VITALS: BP 80/41; PULSE 98; RESP 14; TEMP 36; O2SAT 94
--- NOTE | 2021-07-30 15:31 | PC.NURSE ---
placed l[place] cath on pt with assist from PCT. pt was mildly incontinent with black stool. scant bleeding noted to pts urethral area when placing lancaster. skin breakdown noted to pts buttocks. will photograph for chart
[2021-07-30 16:27] VITALS: BP 140/116
[2021-07-30 21:15] VITALS: BP 109/54; PULSE 102; RESP 16; TEMP 36.1; O2SAT 100
[2021-07-30] MEDS: Mirtazapine 15 MG TABLET PO (21:30)
[2021-07-31] MEDS: Morphine Sulfate 4 MG/ML CARTRIDGE IVPUSH ×3 (00:06→21:45)
[2021-07-31] MEDS: Lactated Ringers 1,000 ML 100 ML IVCONT (03:14)
[2021-07-31] MEDS: 0.9 % Sodium Chloride Flush 3 ML SYRINGE IVFLUSH ×3 (03:15→16:35)
[2021-07-31] MEDS: ondansetron HCL 4 MG/2 ML VIAL IVPUSH ×2 (04:27→21:45)
[2021-07-31 05:01] VITALS: RESP 20
[2021-07-31 06:27] LABS: MANUAL DIFF FLAG NO
[2021-07-31 06:28] LABS: Basophils Percent Auto 0.1 % (0-2); Hematocrit 30.4 % (37.0-47.0); Hemoglobin 9.9 g/dl (12.0-16.0); Imm Gran Abs Auto 0.09 X10*3/uL (0.00-0.03); Imm Gran Pct Auto 0.6 % (0.0-0.4); Lymphocytes Absolute Auto 0.8 X10*3/uL (1.2-4.9); Lymphocytes Percent Auto 5.2 % (20-40); Mean Corpuscular HGB Conc 32.6 g/dl (31.0-35.0); Mean Corpuscular Hemoglobin 29.6 pg (27.0-33.0); Mean Platelet Volume 9.4 fL (9.4-12.3); Monocytes Absolute Auto 0.8 X10*3/uL (0.1-1.2); Neutrophils Absolute Auto 13.6 x10*3/uL (2.0-8.3); Neutrophils Percent Auto 89.1 % (45-73); Platelet Count 399 X10*3/uL (160-400); Red Blood Count 3.34 X10*6/uL (4.20-5.50); Red Cell Distribution Width 16.1 % (11.0-16.0); White Blood Count 15.3 X10*3/uL (4.8-10.8)
[2021-07-31 06:43] LABS: Anion Gap 18 (12-20); Blood Urea Nitrogen 70 mg/dL (9-16); Calcium 7.6 mg/dL (8.4-10.2); Carbon Dioxide 18 mmol/L (22-29); Chloride 103 mmol/L (96-108); Estimated Glomerular Filt Rate 29; Glucose Random 74 mg/dL (60-115); Potassium 3.5 mmol/L (3.3-5.1); Sodium 135 mmol/L (135-145)
[2021-07-31 10:06] VITALS: BP 128/75; PULSE 98; RESP 13; TEMP 36.4; O2SAT 98
[2021-07-31] MEDS: cefTRIAXone sodium 1 GM in 0.9 % Sodium Chloride 50 ML IV (10:40)
[2021-07-31] MEDS: Aspirin Enteric Coated 81 MG TABLET.DR PO (10:40)
[2021-07-31] MEDS: Clopidogrel Bisulfate 75 MG TABLET PO (10:40)
--- NOTE | 2021-07-31 11:28 | PC.NURSE ---
Pt moaning, will respond to name, but will not answer orientation questions, at bedside, attempted PO intake, pt vomited immediately coffee ground emesis. MD made aware. Pt refusing any pain or nausea medications at this time. is concerned of no PO intake and questioning prognsis and time line, explained those are questions for the MD and will let them know he has questions. Pt cleaned, lancaster in place, skin intact, + PERRLA, +pulses, no edema noted. Will continue to monitor.
--- NOTE | 2021-07-31 12:49 | MHC.CM.PN ---
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 ref. to [facility] has been made. we are waiting to find out if this is possible at this time . cm to cont. to follow.
--- NOTE | 2021-07-31 12:57 | HO.PM.IMPN ---
Subjective Subjective Date of Service: 07/31/21 Interval History: seen and examined this morning follow up for RIDDHI, UTI no overnight events patient has dementia, unable to provide history/ ROS Review of Systems Review of Systems: Yes Unobtainable due to mental condition Physical Exam Vital Signs: Vital Signs: Last Vital Signs Temp 97.6 F 07/31/21 10:06 Pulse 98 07/31/21 10:06 Resp 13 07/31/21 10:06 BP 128/75 07/31/21 10:06 Pulse Ox 98 07/31/21 10:06 Const: General: comfortable and no acute distress Nutritional Appearance: thin HENMT: Head: Yes normocephalic and Yes atraumatic Eyes: Sclerae: sclerae normal Pupils: Equal, round and reactive pupils present Resp: Effort & Inspection: normal respiratory effort and no respiratory distress Cardio: Rate: regular rate Rhythm: regular rhythm GI: Inspection: No distended Palpation (GI): Soft to palpation and nontender Skin: Other: Neuro: Cranial nerves: Yes CN's II-XII intact bilaterally, Yes Equal, round and reactive pupils present and Yes Bilaterally intact EOM present Objective Data Active Medications Acetaminophen (Acetaminophen 325 Mg Tablet) 650 mg PO Q6H PRN PRN Reason: Pain, Mild (Pain Scale 1-3) Aspirin (Aspirin Enteric Coated 81 Mg Tablet.) 81 mg PO DAILY [facility] Last Admin: 07/31/21 10:40 Dose: 81 mg Documented by: SONDRA Atorvastatin Calcium (Atorvastatin Calcium 80 Mg Tablet) 80 mg PO BEDTIME [facility] Last Admin: 07/30/21 21:30 Dose: Not Given Documented by: LOIS Non-Admin Reason: Patient Refused Clopidogrel Bisulfate (Clopidogrel Bisulfate 75 Mg Tablet) 75 mg PO DAILY [facility] Last Admin: 07/31/21 10:40 Dose: 75 mg Documented by: SONDRA Heparin Sodium (Porcine) (Heparin Sodium,Porcine 5,000 Unit/Ml Vial) 5,000 unit SUBCUT Q12H [facility] Last Admin: 07/31/21 10:34 Dose: Not Given Documented by: SONDRA Non-Admin Reason: arden red blood in stool Ceftriaxone Sodium 1 gm/ (Sodium Chloride) 50 mls @ 100 mls/hr IV Q24H [facility] Last Infusion: 07/31/21 11:15 Dose: 0 mls/hr Documented by: SONDRA Melatonin (Melatonin 3 Mg Tablet) 3 mg PO BEDTIME PRN PRN Reason: Insomnia Mirtazapine (Mirtazapine 15 Mg Tablet) 15 mg PO BEDTIME [facility] Last Admin: 07/30/21 21:30 Dose: 15 mg Documented by: LOIS Morphine Sulfate (Morphine Sulfate 4 Mg/Ml Cartridge) 4 mg IVPUSH Q3H PRN; Protocol PRN Reason: Pain, Moderate (Pain Scale 4-6 Last Admin: 07/31/21 04:27 Dose: 4 mg Documented by: MARK Ondansetron HCl (Ondansetron Hcl 4 Mg/2 Ml Vial) 4 mg IVPUSH Q8H PRN PRN Reason: Nausea and Vomiting Last Admin: 07/31/21 04:27 Dose: 4 mg Documented by: MARK Oxycodone HCl (Oxycodone Hcl Immed Release 5 Mg Tablet) 5 mg PO Q4H PRN PRN Reason: Pain, Severe (Pain Scale 7-10) Pharmacy Consult (Consult Rx Perform Med Rec) 1 each MISCELLANE ONCE PRN PRN Reason: Consult order Sodium Chloride (0.9 % Sodium Chloride Flush 3 Ml Syringe) 3 ml IVFLUSH QSHIFT [facility] Last Admin: 07/31/21 10:41 Dose: 3 ml Documented by: SONDRA Labs CBC & Chem 7: 07/31/21 06:22 07/31/21 06:22 Labs: Laboratory Results - last 24 hr 07/31/21 07/31/21 06:22 06:22 MCV 91.0 MCH 29.6 MCHC 32.6 RDW 16.1 H Plt Count 399 MPV 9.4 Immature Gran % (Auto) 0.6 H Neut % (Auto) 89.1 H Lymph % (Auto) 5.2 L [place] % (Auto) 5.0 Eos % (Auto) 0.0 Baso % (Auto) 0.1 Lymph # (Auto) 0.8 L [place] # (Auto) 0.8 Eos # (Auto) 0.0 Baso # (Auto) 0.0 Abs Immat Gran (auto) 0.09 H Absolute Neuts (auto) 13.6 H Absolute Nucleated RBC 0.000 Nucleated RBC % (auto) 0.0 Anion Gap 18 Estim Creat Clear Calc TNP Estimated GFR 29 Random Glucose 74 Calcium 7.6 L Microbiology Microbiology Results: Microbiology 07/30/21 05:15 Urine Culture - Final Urine clean catch - Clean Catch Midstream No growth. 07/30/21 04:35 Blood Culture - Preliminary Blood - Venous No growth after 24 hours. 07/30/21 04:35 Blood Culture - Preliminary Blood - Venous No growth after 24 hours. 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 with complaints of abdominal pain. She is found to have a UTI and RIDDHI. She will be admitted for further work up and treatment. Sepsis - with severe features Initially thought to be r/t UTI, but Urine culture negative; discussed with at the bedside. Other possibilities include SBP. He does not want paracentesis or anything invasive. Met sepsis criteria with tachycardia, leukocytosis Severe features include low MAP, RIDDHI and Elevated lactate Acute Kidney Injury suspected pre-renal from dehydration, possibly due to sepsis mild right hydroureteronephrosis probably from uterine lesion Abdominal pain suspected secondary to her undiagnosed (but known) malignancy IV morphine / PO oxycodone for pain control Dementia without behavioral disturbances at this point continue baseline care Continue appropriate baseline meds. DNR/DNI DVT pptx -- high risk. Subcut. heparin attending: dr. ackerman Discussed with patients /HCP re: code status. Her current MOLST is DNI, but attempt resuscitation. After explanation of what a code involves, he has elected DNR and DNI. 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 He does not want to do anymore diagnostic workup to determine cause of infection, he just wants her to be comfortable. Will discuss with case management about returning to SNF. Continue prn pain medication. Quality Stroke Does the patient have a stroke diagnosis?: No VTE Prior VTE?: No VTE Risk Level:: Medical - moderate - high VTE Device Contraindication: Treatment Not Indicated VTE Drug Contraindication: N/A - Med Ordered
--- NOTE | 2021-07-31 13:28 | MHC.CM.PN ---
alex adams has to get auth from pt's insurance to take her back as [employer]. they are going for auth now and will let me know when they get it. then hospitallist will be notified and we can send her back as [employer]. cm to cont to follow.
--- NOTE | 2021-07-31 13:44 | PC.NURSE ---
Pt resting and moaning, asking for ice water, explained she vomits and offered swabs, pt refused. Plan for Hospice care and return to facility. Awaiting further orders, [place] draining clear yellow urine. Will continue to monitor.
[2021-07-31 15:54] VITALS: BP 148/88; PULSE 110; RESP 16; TEMP 36.3; O2SAT 96
--- NOTE | 2021-07-31 15:56 | PC.NURSE ---
patient was given a bed bath and reposition to left side ,rn aware of patient open area on coccyx
--- NOTE | 2021-07-31 19:51 | PC.NURSE ---
PATIENT EATING ,RN AWARE ,PATIENT IS RESTING ,PATIENT WAS REPOSITION ON RIGHT SIDE WITH PILLOW .
[2021-07-31 20:11] VITALS: BP 124/72; PULSE 104; RESP 16; TEMP 36.3; O2SAT 95
[2021-08-01] MEDS: 0.9 % Sodium Chloride Flush 3 ML SYRINGE IVFLUSH ×2 (01:15→08:05)
[2021-08-01] MEDS: cefTRIAXone sodium 1 GM in 0.9 % Sodium Chloride 50 ML IV (08:04)
[2021-08-01 10:24] VITALS: BMI 25.1
--- NOTE | 2021-08-01 11:19 | P.DS_ITS ---
DS: Providers Provider Date of Service: 08/01/21 <DELORIS Alcala - Last Filed: 08/01/21 11:35> Date of admission: 07/30/21 08:59 <DELORIS Alcala - Last Filed: 08/01/21 11:35> Date of discharge: 08/01/21 <DELORIS Alcala - Last Filed: 08/01/21 11:35> Primary care physician: Emre Cavazos MD <DELORIS Alcala - Last Filed: 08/01/21 11:35> Attending physician on discharge: Alfred Reed <DELORIS Alcala - Last Filed: 08/01/21 11:35> Discharging clinician: Carla Leal <DELORIS Alcala - Last Filed: 08/01/21 11:35> DS: Diagnosis Discharge Diagnosis (1) Severe sepsis: Status: Acute <DELORIS Alcala - Last Filed: 08/01/21 11:35> (2) RIDDHI (acute kidney injury): Status: Acute <DELORIS Alcala - Last Filed: 08/01/21 11:35> (3) Neoplasm: Status: Acute <DELORIS Alcala - Last Filed: 08/01/21 11:35> DS: Summary Hospital Course Hospital Course: From H&P on day of admission This is an 85 yo F with multiple medical problems as outlined below who is a resident of [facility] and is sent to [facility] ED with complaints of abdominal pain. Due to the patients underlying dementia, her history if limited and therefore obtained from the ED/SNF records, as well as the patients and healthcare proxy Yunior Gillespie. Reportedly the patient had complained of severe left-sided abdominal pain on the evening prior to arrival and so she was sent to [facility] ED. It is unclear if there was any associated nausea or vomiting, diarrhea or constipation. No reports of fevers and chills. Yunior, corroborates that the patient did complain of abdominal pain to him in the preceding days, when he had visited her at the SNF. He also reported that she was not eating as much as normal. The patient is seen and examined in the ED this AM. She reports no current abdominal pain or nausea. In fact, she reports she wants some breakfast. She does not know where she is, where she lives nor why she is here. Acute Kidney Injury - suspected pre-renal from dehydration, possibly due to sepsis. mild right hydroureteronephrosis probably from uterine lesion. Sepsis - met sepsis criteria with tachycardia, leukocytosis and Severe features include low MAP, RIDDHI and Elevated lactate. Initially thought to be r/t to UTI, but Urine culture returned negative; This was discussed with her at the bedside. Other possibilities of source of infection include SBP however he does not want to proceed with paracentesis or anything invasive. 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 She will return back to SNF with her chronic po morphine. Her baseline medications will be discontinued. <DELORIS Alcala - Last Filed: 08/01/21 11:35> Time Spent with Patient Time attestation: Total time spent providing and/or coordinating discharge services: <DELORIS Alcala Last Filed: 08/01/21 11:35> Discharge coordination time: Greater than 30 minutes <DELORIS Alcala Last Filed: 08/01/21 11:35> Quality: Stroke Does the patient have a stroke diagnosis?: No <DELORIS Alcala Last Filed: 08/01/21 11:35> Physical Exam Vital Signs: Vital Signs: Last Vital Signs Temp 97.4 F 07/31/21 20:11 Pulse 104 H 07/31/21 20:11 Resp 16 07/31/21 20:11 BP 124/72 07/31/21 20:11 Pulse Ox 95 07/31/21 20:11 BMI result Body Mass Index 25.1 <DELORIS Alcala Last Filed: 08/01/21 11:35> Const: General: comfortable and no acute distress <DELORIS Alcala Last Filed: 08/01/21 11:35> Nutritional Appearance: thin <DELORIS Alcala Last Filed: 08/01/21 11:35> HENMT: Head: Yes normocephalic and Yes atraumatic <DELORIS Alcala Last Filed: 08/01/21 11:35> Eyes: Sclerae: sclerae normal <DELORIS Alcala - Last Filed: 08/01/21 11:35> Pupils: Equal, round and reactive pupils present <DELORIS Alcala - Last Filed: 08/01/21 11:35> Resp: Effort & Inspection: normal respiratory effort and no respiratory distress <DELORIS Alcala - Last Filed: 08/01/21 11:35> Cardio: Rate: regular rate <DELORIS Alcala - Last Filed: 08/01/21 11:35> Rhythm: regular rhythm <DELORIS Alcala - Last Filed: 08/01/21 11:35> GI: Inspection: No distended <DELORIS Alcala - Last Filed: 08/01/21 11:35> Palpation (GI): Soft to palpation and nontender <DELORIS Alcala - Last Filed: 08/01/21 11:35> Skin: Other: <DELORIS Alcala - Last Filed: 08/01/21 11:35> Neuro: Cranial nerves: Yes CN's II-XII intact bilaterally, Yes Equal, round and reactive pupils present and Yes Bilaterally intact EOM present <DELORIS Alcala - Last Filed: 08/01/21 11:35> DS: Data Data Completed and Pending Labs on day of discharge: Preliminary micro results at discharge 07/30/21 04:35 Blood Culture - Preliminary Blood - Venous No growth after 24 hours. 07/30/21 04:35 Blood Culture - Preliminary Blood - Venous No growth after 24 hours. <DELROIS Alcala - Last Filed: 08/01/21 11:35> Discharge Plan Discharge Patient Disposition: er [facility] <DELORIS Alcala - Last Filed: 08/01/21 11:35> Discharge Diagnosis: sepsis riddhi metastatic cancer <DELORIS Alcala - Last Filed: 08/01/21 11:35> sepsis riddhi metastatic cancer <Alfred Reed MD - Last Filed: 08/04/21 08:38> Referrals: Dhaval Briggs [Outside] - 1 Week Emre Cavazos MD [Primary Care Provider] - 1 Week <DELORIS Alcala - Last Filed: 08/01/21 11:35> Discharge Medications: Continued morphine concentrate 20 mg/mL Syringe 5 mg PO Q2H PRN (Reason: Pain) RF: 0 Discontinued clopidogrel 75 mg Tablet 75 mg PO DAILY Qty: 30 RF: 0 atorvastatin 80 mg Tablet 80 mg PO BEDTIME Qty: 30 RF: 0 aspirin 81 mg Tablet,Delayed Release (Dr/Ec) 81 mg PO DAILY Qty: 30 RF: 0 metoprolol succinate 50 mg Tablet Extended Release 24 Hr 50 mg PO DAILY Qty: 30 RF: 0 amlodipine 10 mg tablet 10 mg PO DAILY RF: 0 mirtazapine 15 mg tablet 1 tab PO BEDTIME RF: 0 Combivent Respimat 20-100 mcg/actuation mist 1 puff inhalation QID RF: 0 melatonin 3 mg Tablet 3 mg PO BEDTIME PRN (Reason: Insomnia) RF: 0 No Action (DME) miscellaneous medical supply Misc See Rx Instructions .ROUTE .MEDSUPPLY Qty: 1 RF: 0 (DME) blood pressure monitor Kit See Rx Instructions .ROUTE .MEDSUPPLY Qty: 1 RF: 0 <DELORIS Alcala - Last Filed: 08/01/21 11:35> Discharge Orders: Discharge Order (Routine); Ordered 08/01/21 Ordered By: Carla Leal <DELORIS Alcala - Last Filed: 08/01/21 11:35> Diet: advance to usual diet <DELORIS Alcala - Last Filed: 08/01/21 11:35> advance to usual diet <Alfred Reed MD - Last Filed: 08/04/21 08:38> Activity on Discharge: As tolerated <DELORIS Alcala - Last Filed: 08/01/21 11:35> As tolerated <Alfred Reed MD - Last Filed: 08/04/21 08:38> Stand Alone Forms: Patient Portal Discharge page <DELORIS Alcala Last Filed: 08/01/21 11:35> Care Plan Goals: comfort <DELORIS Alcala Last Filed: 08/01/21 11:35> Health Concerns: Metastatic cancer RIDDHI <DELORIS Alcala - Last Filed: 08/01/21 11:35> Plan of Treatment: Comfort measures <DELORIS Alcala - Last Filed: 08/01/21 11:35> Assessment: see discharge summary Attending Attestation: I have personally seen and examined the patient independently (on the date of service as documented by NPP), reviewed the NPP history, exam and?MDM and agree with the assessment and plan as?written <DELORIS Alcala - Last Filed: 08/01/21 11:35> Discharge Date/Time: 08/01/21 12:38 <DELORIS Alcala - Last Filed: 08/01/21 11:35>
--- NOTE | 2021-08-01 11:32 | MHC.CM.PN ---
PT IS CLEARED TO DC TODAY, BACK TO [facility] STATUS [facility] INFORMED CM THEY HAVE AUTH. CM CALLED PTS /HCP, CLAUDIA [phone], AND INFORMED HIM OF DC. HE REPORTS HE IS IN AGREEMENT WITH DC PLAN AND WILL MEET PT AT THE PT WILL DC TO [facility] AT 1230 [facility]
[2021-08-01] MEDS: Morphine Sulfate 4 MG/ML CARTRIDGE IVPUSH (11:48)
== END 2021-08-01 12:38 | disposition skilled nursing facility (03) | DRG 871 ==
LOC: HO.ED 06:52 → HO.EDOVER 09:12 → HO.S3 07-31 22:38
PROVIDERS: Admitting Provider Family Medicine; Emergency Provider Student in an Organized Health Care Education/Training Program; PCP Family Medicine; Visit Provider Physician Assistant Medical
DX: A41.9 Sepsis, unspecified organism (principal); K65.2 Spontaneous bacterial peritonitis; N17.9 Acute kidney failure, unspecified; C78.7 Secondary malignant neoplasm of liver and intrahepatic bile duct; C78.00 Secondary malignant neoplasm of unspecified lung; N13.30 Unspecified hydronephrosis; C55 Malignant neoplasm of uterus, part unspecified; E86.0 Dehydration; F03.90 Unspecified dementia, unspecified severity, without behavioral disturbance, psychotic disturbance, mood disturbance, and anxiety; R65.20 Severe sepsis without septic shock; Z20.822 Contact with and (suspected) exposure to COVID-19; Z79.891 Long term (current) use of opiate analgesic; Z66 Do not resuscitate; Z51.5 Encounter for palliative care
CPT/HCPCS: 36415; 71260; 74177; 80048; 80053; 81001; 82947; 83605; 85025; 85610; 86850; 86900; 86901; 87040; 87086; 87635; 96365; 99285; J0696; J2270; J2405; Q9967

== ENCOUNTER 2021-08-21 00:26 | Outpatient (REF) | payer MEDICARE, SELFPAY | END 2021-08-21 00:27 | disposition home or self-care (01) | LOC: HO.MMNH3L 00:26 | PROVIDERS: Visit Provider Family Medicine | DX: Z13.89 Encounter for screening for other disorder (principal) ==